=== PATIENT | female | born 1990 ===

== ENCOUNTER 2017-02-18 21:40 | Observation (INO) | payer BC ==
[2017-02-18 21:52] VITALS: BMI 17.6
[2017-02-18] MEDS ORDERED: Sodium Chloride 0.9% 1,000 ML IV STA (21:58)
[2017-02-18 22:24] LABS: ADD MANUAL DIFF? NO
[2017-02-18] MEDS ORDERED: Alum-Mag Hydrox-Simethicone Susp (30 mL) PO STA (22:24)
[2017-02-18] MEDS ORDERED: Atrop/Hyosc/Scopal/PB Elixir (120 ml) PO STA (22:24)
[2017-02-18 22:29] LABS: BASO # 0.02 K/mm3 (0.0-2.0); BASO % 0.1 % (0.0-3.0); EOS # 0.2 (0.0-0.7); EOS % 1.4 % (1.5-5.0); GRAN # 11.26 (1.4-6.5); GRAN % 80.1 % (50.0-68.0); HEMATOCRIT 32.6 % (36.0-48.0); LYMPH # 2.1 (1.2-3.4); LYMPH % 14.6 % (22.0-35.0); MEAN CELL VOLUME 73.8 fL (80.0-105.0); MEAN CORPUSCULAR HGB CONC 32.5 g/dl (31.0-37.0); MEAN PLATELET VOLUME 9.2 fl (7.0-11.0); MONO # 0.5 (0.1-0.6); MONO % 3.8 % (1.0-6.0); PLATELET COUNT 268 10^3/uL (120.0-450.0); RED CELL DISTRIBUTION WIDTH 15.8 % (11.5-14.5); URINE BILIRUBIN NEGATIVE (NEGATIVE); URINE BLOOD NEGATIVE (NEGATIVE); URINE GLUCOSE (UA) NEGATIVE (NEGATIVE); URINE KETONE NEGATIVE (NEGATIVE); URINE LEUKOCYTE ESTERASE NEGATIVE Leu/uL (NEGATIVE); URINE PROTEIN NEGATIVE mg/dL (<30 mg/dL); URINE UROBILINOGEN 0.2 E.U./dL (<1 E.U./dL); WHITE BLOOD COUNT 14.1 10^3/ul (4.5-11.0)
[2017-02-18 22:33] LABS: URINE COLOR YELLOW (YELLOW)
[2017-02-18 22:34] LABS: URINE APPEARANCE CLEAR (CLEAR)
[2017-02-18] MEDS ORDERED: Morphine 2 mg/ml ISec IVP STA (22:35)
[2017-02-18 22:38] LABS: ALB/GLOB RATIO 1.2 (1.1-1.8); ALKALINE PHOSPHATASE 77 U/L (38-133); ALT/SGPT 16 U/L (7-56); AMYLASE 111 U/L (35-125); AST/SGOT 20 U/L (15-39); BILIRUBIN,TOTAL 0.5 mg/dL (0.2-1.3); BLOOD UREA NITROGEN 7 mg/dL (7-21); CALCIUM 8.8 mg/dL (8.4-10.5); CARBON DIOXIDE 28 mmol/L (21-33); CHLORIDE 103 mmol/L (98-107); GFR AFRICAN-AMERICAN > 60; GLUCOSE,RANDOM 83 mg/dL (70-110); LIPASE 94 U/L (23-300); POTASSIUM 3.9 mmol/L (3.6-5.0); SODIUM 140 mmol/L (132-148); TOTAL PROTEIN 7.4 g/dL (5.8-8.3)
--- NOTE | 2017-02-19 00:02 | ED PDOC ---
Arrival/HPI - General Chief Complaint: Abdominal Pain Time Seen by Provider: 02/18/17 21:58 Historian: Patient - History of Present Illness Narrative History of Present Illness (Text): 02/18/17 23:58 27-year-old female presents today with diffuse abdominal pain and epigastric pain that started this afternoon and has progressively been worsening. Patient complaining of nausea andvomiting with one episode of diarrhea. Denies fevers or chills. Denies urinary symptoms. Denies back pain. Patient rates the pain as 10 out of 10. Patient states this is not a pain that she has had before. No medications have been taken at home. pt states she is supposed to be taking medications for ulcers. No other complaints 02/19/17 00:36 Past Medical History - Provider Review Nursing Documentation Reviewed: Yes - Travel History Have you recently traveled outside [place] w/in the past 3 mons?: No - Infectious Disease Hx of Infectious Diseases: None - Tetanus Immunization Tetanus Immunization: Unknown - Cardiac Hx Cardiac Disorders: No - Pulmonary Hx Respiratory Disorders: No - Neurological Hx Neurological Disorder: No - HEENT Hx HEENT Disorder: No - Renal Hx Renal Disorder: No - Endocrine/Metabolic Hx Endocrine Disorders: Yes Other/Comment: pain to tip of fingers and numbness to arms on and off since dx with sickle cell trait - Hematological/Oncological Hx Blood Disorders: Yes Hx Sickle Cell Trait: Yes - Integumentary Hx Dermatological Disorder: No - Musculoskeletal/Rheumatological Hx Falls: No - Gastrointestinal Hx Gastrointestinal Disorders: Yes (diarrhea, questionable colitis 3 yr ago) Hx Gastritis: Yes - Genitourinary/Gynecological Hx Genitourinary Disorders: Yes Other/Comment: lmp 1 yr ago took depo provera shot for control, has had some spotting - Psychiatric Hx Anxiety: Yes Hx Depression: Yes Hx Substance Use: No - Surgical History Hx Section: Yes (x1) - Anesthesia Hx Anesthesia: Yes Hx Anesthesia Reactions: No Hx Malignant Hyperthermia: No Family/Social History - Physician Review Nursing Documentation Reviewed: Yes Family/Social History: Unknown Family HX Smoking Status: Never Smoked Hx Alcohol Use: No Hx Substance Use: No Allergies/Home Meds Allergies/Adverse Reactions: Allergies No Known Allergies Allergy (Verified 12/05/16 22:24) Review of Systems - Review of Systems Constitutional: absent: Fatigue, Fevers Respiratory: absent: SOB, Cough Cardiovascular: absent: Chest Pain, Palpitations Gastrointestinal: Abdominal Pain, Nausea. absent: Constipation, Diarrhea, Vomiting Genitourinary Female: absent: Dysuria, Frequency, Hematuria Musculoskeletal: absent: Arthralgias, Back Pain, Neck Pain Skin: absent: Rash, Pruritis Neurological: absent: Headache Psychiatric: absent: Anxiety, Depression Physical Exam Vital Signs Reviewed: Yes Vital Signs Temp Pulse Resp BP Pulse Ox 02/18/17 21:54 97.8 F 75 18 104/71 100 Temperature: Afebrile Blood Pressure: Normal Pulse: Regular Respiratory Rate: Normal Appearance: Positive for: Well-Appearing, Non-Toxic, Uncomfortable Pain Distress: Mild Mental Status: Positive for: Alert and Oriented X 3 - Systems Exam Head: Present: Atraumatic Mouth: Present: Moist Mucous Membranes Neck: Present: Normal Range of Motion Respiratory/Chest: Present: Clear to Auscultation, Good Air Exchange. No: Respiratory Distress, Accessory Muscle Use Cardiovascular: Present: Regular Rate and Rhythm, Normal S1, S2. No: Murmurs Abdomen: Present: Tenderness (epigastric tenderness, diffuse tenderness greatest epigastric), Normal Bowel Sounds, Guarding (voluntary guarding). No: Distention, McBurney's Point Tender Back: Present: Normal Inspection. No: CVA Tenderness, Midline Tenderness, Paraspinal Tenderness Upper Extremity: Present: Normal ROM Lower Extremity: Present: Normal ROM Neurological: Present: GCS=15 Skin: Present: Warm, Dry, Normal Color. No: Rashes Psychiatric: Present: Alert, Oriented x 3 Medical Decision Making ED Course and Treatment: 02/19/17 00:00 Patient is nontoxic well appearing with stable vital signs presenting with severe abdominal pain pt seen and evaluated by dr. Guerrero CBC wbc;14.1 CMP: wnl Lipase Wnl Urinalysis wnl Ultrasound:COMPARISON: CT - ABD PELVIS PO IV CONTRAST 01/11/2017 1:57:47 AM FINDINGS: Liver: Normal echogenicity. No mass. No intrahepatic bile duct dilatation. Gallbladder: No gallstones. No wall thickening. No pericholecystic fluid. No sonographic Pleitez's sign. Common bile duct: No dilatation. No stones. Pancreas: Unremarkable as visualized. Kidneys: Normal echogenicity. No hydronephrosis. Spleen: No splenomegaly. Aorta: Unremarkable. No aneurysm. Inferior vena cava: Unremarkable. Free fluid: No significant free fluid. IMPRESSION: 1. No acute findings. 2. Non-acute findings are described above. Pt had CT on 01/11; reviewed; pt given GI cocktail, and protonix iv and morphine 2 IV. Patient reassessment: Pt still with diffuse abdominal tenderness greatest in the epigastric region, slight improvement in pain, but still c/o burning and achy pain with wbc, 14.1 Discussed all results with patient in depth case discussed with dr. ozuna; will admit observational status for intractable abdominal pain. will get surgical consult and GI consult. case discussed with surgical services asst dr pandey all aspects of this case were discussed the attending of record. Impression: Abdominal pain, intractable admit observational status to med/surg. - Lab Interpretations Lab Results: 02/18/17 22:23 02/18/17 22:23 Lab Results 02/18/17 22:23: WBC 14.1 H D, RBC 4.42, Hgb 10.6 L, Hct 32.6 L, MCV 73.8 L, MCH 24.0 L, MCHC 32.5, RDW 15.8 H, Plt Count 268, MPV 9.2, Gran % 80.1 H, Lymph % ( Auto) 14.6 L, [place] % (Auto) 3.8, Eos % (Auto) 1.4 L, Baso % (Auto) 0.1, Gran # 11.26 H, Lymph # 2.1, [place] # 0.5, Eos # 0.2, Baso # 0.02, Sodium 140, Potassium 3.9, Chloride 103, Carbon Dioxide 28, Anion Gap 13, BUN 7, Creatinine 0.7, Est GFR ( Amer) > 60, Est GFR (Non-Af Amer) > 60, Random Glucose 83, Calcium 8.8, Total Bilirubin 0.5, AST 20, ALT 16, Alkaline Phosphatase 77, Total Protein 7.4, Albumin 4.0, Globulin 3.4, Albumin/Globulin Ratio 1.2, Amylase 111 , Lipase 94, Urine Color Yellow, Urine Appearance Clear, Urine pH 8.0, Ur Specific [place] 1.015, Urine Protein Negative, Urine Glucose (UA) Negative, Urine Ketones Negative, Urine Blood Negative, Urine Nitrate Negative, Urine Bilirubin Negative, Urine Urobilinogen 0.2, Ur Leukocyte Esterase Negative, Urine HCG, Qual Negative - RAD Interpretation Radiology Orders: 03/30/17 22:23 ABDOMEN COMPLETE [US] Stat - Medication Orders Current Medication Orders: Discontinued Medications Al Hydrox/Mg Hydrox/Simethicone (Maalox Plus 30 Ml) 30 ml PO STAT STA Stop: 02/18/17 22:25 Last Admin: 02/18/17 23:00 Dose: 30 ML Belladonna/Phenobarbital ( Elixir) 10 ml PO STAT STA Stop: 02/18/17 22:25 Last Admin: 02/18/17 22:59 Dose: 10 ML Sodium Chloride (Sodium Chloride 0.9%) 1,000 mls @ 999 mls/hr IV .Q1H1M STA Stop: 02/18/17 22:58 Last Admin: 02/18/17 22:24 Dose: 999 MLS/HR eMAR Start Stop Document 02/18/17 22:24 [facility] (Rec: 02/18/17 22:24 [id number]) Intravenous Solution Start Date 02/18/17 Start Time 22:24 End Date 02/18/17 End time 23:24 Total Infusion Time 60 Lidocaine HCl (Lidocaine 2% Viscous) 10 ml PO STAT STA Stop: 02/18/17 22:25 Last Admin: 02/18/17 23:00 Dose: 10 ML Morphine Sulfate (Morphine) 2 mg IVP STAT STA Stop: 02/18/17 22:36 Last Admin: 02/18/17 23:03 Dose: 2 MG MAR Pain Assessment Document 02/18/17 23:03 [facility] (Rec: 02/18/17 23:05 [id number]) Pain Reassessment Is this a pain reassessment? No Sleep Is patient sleeping during reassessment? No Presence of Pain Presence of Pain Yes Location Pain Location Body Site Abdomen Description Description Intermittent Intensity of Pain at present 8 Acceptable Level of Pain 0 Radiation Location abdomen Variations/Patterns intermittent Alleviating Factors/Management Medication Techniques Position Change IVP Administration Document 02/18/17 23:03 [facility] (Rec: 02/18/17 23:05 [id number]) Charges for Administration # of IVP Administrations 1 Pantoprazole Sodium (Protonix Inj) 40 mg IVP STAT STA Stop: 02/18/17 22:01 Last Admin: 02/18/17 22:24 Dose: 40 MG IVP Administration Document 02/18/17 22:24 [facility] (Rec: 02/18/17 22:24 [id number]) Charges for Administration # of IVP Administrations 1 Disposition/Present on Arrival - Present on Arrival Any Indicators Present on Arrival: No History of DVT/PE: No History of Uncontrolled Diabetes: No Urinary Catheter: No History of Decub. Ulcer: No History Surgical Site Infection Following: None - Disposition Have Diagnosis and Disposition been Completed?: Yes Diagnosis: Intractable abdominal pain Disposition: HOSPITALIZED Disposition Time: 00:52 Patient Plan: Observation Patient Problems: Current Active Problems Problem Status Diagnosed Intractable abdominal pain Acute Condition: FAIR
[2017-02-19] MEDS ORDERED: Sodium Chloride 0.9% 1,000 ML IV STA (00:58)
[2017-02-19] MEDS ORDERED: Morphine 2 mg/ml ISec IVP PRN (01:38)
--- NOTE | 2017-02-19 01:52 | CP.PCM.CON ---
History of Present Illness - History of Present Illness History of Present Illness: General Surgery Consult note for Dr. Lopez Consult reason: epigastric pain and vomiting 27F with PMH of sickle cell trait, PUD, anxiety and depression with PSH of c- section 4 years ago with epigastric abdominal pain several hours in duration. Patient states that at first she thought her pain was a symptom of a cold, as her children have been sick and she has had an intermittent non-productive cough and sore throat. When her symptoms worsened throughout the day she came to the ER. Pain is described as a burning sensation not improved with peptobismol and is accompanied by nausea and 3 episodes of vomiting and 1 episode of diarrhea. Patient states that emesis was at first food and then had a green tint, but denies hematemisis. Diarrhea is normal color, no melena or hematochezia. Pain does not radiate and is not associated with mid back pain or a tearing sensation. Patient reports increased urinary frequency, dysuria, but denies hematuria, fevers, chills, chest pain, SOB, numbness, tingling, edema, or any other symptoms. Patient has had multiple episodes of this pain, EGD 08/07 revealed gastric and duodenal ulcers, and is prescribed pepcid which she only takes sporadically. Patient does not associate pain with eating or with the intake of spicy foods but states it is worse with soda consumption. Patient has a history of chronic lower back pain. LMP 02/08/16 but lasted only 2 days. WBC: 14.1 H/H:10.6/32.6 Abdominal US: no acute pathology, no signs of cholelithiasis, cholecystitis, or choledocholithiasis Patient was given maalox, protonix, and morphine in the ED and she states that her pain was improved but still persists. Denies any current nausea or vomiting or any other symptoms. PMH: sickle cell trait, PUD, anxiety, depression PSH: , EGD ALL: NKDA Review of Systems - Review of Systems All systems: reviewed and no additional remarkable complaints except - Constitutional Constitutional: As Per HPI - EENT Nose/Mouth/Throat: As Per HPI - Cardiovascular Cardiovascular: As Per HPI - Respiratory Respiratory: As Per HPI - Gastrointestinal Gastrointestinal: As Per HPI - Genitourinary Genitourinary: As Per HPI - Reproductive: Female Reproductive:Female: Light Menses. absent: Amenorrhea/ Control - Menstruation Menstruation: Light Menses. absent: Amenorrhea/ Control - Musculoskeletal Musculoskeletal: Back Pain. absent: Numbness, Tingling - Neurological Neurological: As Per HPI Past Patient History - Infectious Disease Hx of Infectious Diseases: None - Tetanus Immunizations Tetanus Immunization: Unknown - Past Social History Smoking Status: Never Smoked Home Situation {Lives}: With Family - CARDIAC Hx Cardiac Disorders: No - PULMONARY Hx Respiratory Disorders: No - NEUROLOGICAL Hx Neurological Disorder: No - HEENT Hx HEENT Problems: No - RENAL Hx Chronic Kidney Disease: No - ENDOCRINE/METABOLIC Hx Endocrine Disorders: Yes Other/Comment: pain to tip of fingers and numbness to arms on and off since dx with sickle cell trait - HEMATOLOGICAL/ONCOLOGICAL Hx Blood Disorders: Yes - INTEGUMENTARY Hx Dermatological Problems: No - MUSCULOSKELETAL/RHEUMATOLOGICAL Hx Falls: No - GASTROINTESTINAL Hx Gastrointestinal Disorders: Yes (diarrhea, questionable colitis 3 yr ago) Hx Gastritis: Yes - GENITOURINARY/GYNECOLOGICAL Hx Genitourinary Disorders: Yes Other/Comment: lmp 1 yr ago took depo provera shot for control, has had some spotting - PSYCHIATRIC Hx Anxiety: Yes Hx Depression: Yes Hx Substance Use: No - SURGICAL HISTORY Hx Section: Yes (x1) - ANESTHESIA Hx Anesthesia: Yes Hx Anesthesia Reactions: No Hx Malignant Hyperthermia: No Meds Allergies/Adverse Reactions: Allergies Allergy/AdvReac Type Severity Reaction Status Date / Time No Known Allergies Allergy Verified 12/05/16 22:24 - Medications Medications: Current Medications Sodium Chloride (Sodium Chloride 0.9%) 1,000 mls @ 100 mls/hr IV .Q10H STA Stop: 02/19/17 10:57 Morphine Sulfate (Morphine) 2 mg IVP Q4H PRN PRN Reason: Pain, moderate (4-7) Ondansetron HCl (Zofran Tab) 4 mg PO Q8H PRN PRN Reason: Nausea/Vomiting Pantoprazole Sodium (Protonix Inj) 40 mg IVP DAILY AJIT Physical Exam - Constitutional Appears: Non-toxic - Head Exam Head Exam: ATRAUMATIC, NORMOCEPHALIC - Eye Exam Eye Exam: Normal appearance. absent: Conjunctival injection, Scleral icterus - ENT Exam ENT Exam: Mucous Membranes Moist - Respiratory Exam Respiratory Exam: Clear to Auscultation Bilateral, NORMAL BREATHING PATTERN. absent: Accessory Muscle Use, Respiratory Distress - Cardiovascular Exam Cardiovascular Exam: RRR, +S1, +S2 - GI/Abdominal Exam GI & Abdominal Exam: Soft, Tenderness (marked tenderness to moderate palpation in the epigastrium, RUQ, and LUQ). absent: Distended, Rebound - Extremities Exam Extremities exam: Positive for: pedal pulses present. Negative for: calf tenderness, pedal edema, tenderness - Back Exam Back exam: NORMAL INSPECTION. absent: CVA tenderness (L), CVA tenderness (R) - Neurological Exam Neurological exam: Alert, Oriented x3 - Psychiatric Exam Psychiatric exam: Anxious, Normal Affect - Skin Skin Exam: Dry, Intact, Normal Color, Warm Results - Vital Signs Recent Vital Signs: Last Vital Signs Temp 97.8 F 02/18/17 21:54 Pulse 75 02/18/17 21:54 Resp 18 02/18/17 21:54 BP 104/71 02/18/17 21:54 Pulse Ox 100 02/18/17 21:54 - Labs Result Diagrams: 02/18/17 22:23 02/18/17 22:23 Labs: Laboratory Results - last 24 hr 02/18/17 22:23 WBC 14.1 H D RBC 4.42 Hgb 10.6 L Hct 32.6 L MCV 73.8 L MCH 24.0 L MCHC 32.5 RDW 15.8 H Plt Count 268 MPV 9.2 Gran % 80.1 H Lymph % (Auto) 14.6 L [place] % (Auto) 3.8 Eos % (Auto) 1.4 L Baso % (Auto) 0.1 Gran # 11.26 H Lymph # 2.1 [place] # 0.5 Eos # 0.2 Baso # 0.02 Sodium 140 Potassium 3.9 Chloride 103 Carbon Dioxide 28 Anion Gap 13 BUN 7 Creatinine 0.7 Est GFR ( Amer) > 60 Est GFR (Non-Af Amer) > 60 Random Glucose 83 Calcium 8.8 Total Bilirubin 0.5 AST 20 ALT 16 Alkaline Phosphatase 77 Total Protein 7.4 Albumin 4.0 Globulin 3.4 Albumin/Globulin Ratio 1.2 Amylase 111 Lipase 94 Urine Color Yellow Urine Appearance Clear Urine pH 8.0 Ur Specific [place] 1.015 Urine Protein Negative Urine Glucose (UA) Negative Urine Ketones Negative Urine Blood Negative Urine Nitrate Negative Urine Bilirubin Negative Urine Urobilinogen 0.2 Ur Leukocyte Esterase Negative Urine HCG, Qual Negative - Imaging and Cardiology US - abdomen Status: Image reviewed by me, Report reviewed by me Assessment & Plan - Assessment and Plan (Free Text) Assessment: 27F with PMH of PUD, sickle cell train, and PSH of with epigastric abdominal pain, nausea, and vomiting WBC: 14.1, H/H: 10.6/32.6, LFT's wnl US: no acute disease, no signs of gall bladder disease CT abd and pelvis from 01/10/17: no acute disease of the stomach or bowel, R ovarian cyst UA: neg for infection Plan: -no indication for emergent surgical intervention at this time -protonix, zofran PRN, pain management -leukocytosis may be from a URI, but will continue to trend -management per primary team -f/u GI recs -NPO -further recs per Dr. John Russell, PGY1
[2017-02-19 06:32] LABS: ADD MANUAL DIFF? NO
[2017-02-19] MEDS ORDERED: Barium Sulfate Susp 2.1% w/v, 2.0% w/w 450 mL Bottle PO ONE (06:42)
[2017-02-19 06:43] LABS: BASO # 0.03 K/mm3 (0.0-2.0); BASO % 0.3 % (0.0-3.0); EOS # 0.2 (0.0-0.7); EOS % 1.3 % (1.5-5.0); GRAN # 7.69 (1.4-6.5); GRAN % 66.6 % (50.0-68.0); HEMATOCRIT 30.8 % (36.0-48.0); LYMPH % 26.1 % (22.0-35.0); MEAN CELL VOLUME 73.5 fL (80.0-105.0); MEAN CORPUSCULAR HEMOGLOBIN 24.1 pg (25.0-35.0); MEAN CORPUSCULAR HGB CONC 32.8 g/dl (31.0-37.0); MEAN PLATELET VOLUME 9.1 fl (7.0-11.0); MONO # 0.7 (0.1-0.6); MONO % 5.7 % (1.0-6.0); PLATELET COUNT 252 10^3/uL (120.0-450.0); RED CELL DISTRIBUTION WIDTH 15.6 % (11.5-14.5); WHITE BLOOD COUNT 11.6 10^3/ul (4.5-11.0)
[2017-02-19 06:51] LABS: BLOOD UREA NITROGEN 7 mg/dL (7-21); CARBON DIOXIDE 27 mmol/L (21-33); CHLORIDE 107 mmol/L (98-107); GFR AFRICAN-AMERICAN > 60; GLUCOSE,RANDOM 71 mg/dL (70-110); POTASSIUM 3.9 mmol/L (3.6-5.0); SODIUM 141 mmol/L (132-148)
[2017-02-19] MEDS ORDERED: Sodium Chloride 0.9% 1,000 ML IV SCH (08:45)
--- NOTE | 2017-02-19 10:09 | HP ---
CHIEF COMPLAINT AND HISTORY OF PRESENT ILLNESS: This is a 27-year-old female who is coming in to the hospital complaining of abdominal pain. She says that her children had a gastroenteritis and she fe lt that she may have the same gastroenteritis. She was said that the pain was 10/10, and she was not able to tolerate the pain so she came for further evaluation. She was having nausea. She said she had 1 episode of diarrhea. She denies any fevers or chills; no dysuria or frequency; no nocturia; no weakness in the arms or the legs. She has a past medical history of anxiety and sickle cell trait w ith peptic ulcer disease. She said that she is feeling better. She had 3 episodes of vomiting, nonb loody. REVIEW OF SYSTEMS: All of the review of symptoms are within normal limits except as mentioned. She had an EGD done in 07/2016 that showed peptic ulcer disease. Her last period was about 2 weeks ago. PAST MEDICAL HISTORY: Peptic ulcer disease, sickle cell trait, dermoid cyst rupture. SOCIAL HISTORY: She denies smoking and drinking. FAMILY HISTORY: There is ovarian cancer in her sister. Coronary artery disease and diabetes in the family. MEDICATIONS: None. PHYSICAL EXAMINATION: VITAL SIGNS: She has a temperature of 97.9, pulse of 64, blood pressure 120/57, respirations 20, O2 saturation 98%. GENERAL: Patient lying in bed, flat, and in no apparent distress. HEAD AND NECK EXAM: Atraumatic, normocephalic. Conjunctivae are pink. Throat clear and mouth with moist mucosa. Oropharynx benign. EYES: Extraocular movements are intact. PERRLA. NECK: Supple. No JVD, thyromegaly, or adenopathy. No bruits. HEART: S1 and S2 regular rate and rhythm. No murmurs, rubs, or gallops. LUNGS: Clear to auscultation bilaterally. No wheezing rales or rhonchi appreciated. No retraction s on exam. ABDOMEN: Bowel sounds are positive. There is epigastric tenderness with no rebound, no guarding, n o hepatosplenomegaly. EXTREMITIES: No cyanosis, clubbing, or edema. NEURO: No facial asymmetry, tongue is midline, no uvula deviation. Power is 5/5 in upper extremity and 5/5 in lower extremity. Sensation is normal in upper extremity and lower extremity. PSYCH: Awake, alert, oriented x3. No anxiety or depression symptoms. Good insight. Normal affec t. : No CVA tenderness VASCULAR: 2+ pulses in carotid and pedal pulses. SKIN: No erythema or abnormal nodules noted. SPINE: Normal curvature. LYMPHADENOPATHY: No anterior cervical or posterior cervical adenopathy. No inguinal adenopathy. LABORATORY DATA: White count of 14.1, hemoglobin 10.6, platelet count is 268. Repeat white count is 11.6. Chemistry shows a sodium 140, potassium 3.9, albumin is 4.0. Urine shows blood that is negat [place], nitrites are negative, bilirubin is negative. Ultrasound of the abdomen is pending. ASSESSMENT: 1. Abdominal pain 2. Sickle cell trait. 3. Peptic ulcer disease. PLAN: The patient is currently comfortable. She is being seen by GI and surgery. The patient is on morphine for pain. She is receiving Protonix IV. She was given IV fluids. She is currently n.p.o. and is going for a CAT scan. Will await further input from the consultants. Her pain is currently controlled. Baljit Vaughn MD cc: [id number] TT: 02/19/2017 10:08:58 [place]
--- NOTE | 2017-02-19 11:03 | CT ---
PROCEDURE: CT Abdomen and Pelvis without intravenous contrast HISTORY: abdominal pain COMPARISON: None. TECHNIQUE: Without contrast. Contrast Dose: Radiation dose: Total exam DLP = 188 mGy-cm. FINDINGS: LOWER THORAX: Unremarkable. LIVER: Unremarkable. No gross lesion or ductal dilatation. GALLBLADDER AND BILE DUCTS: Unremarkable. PANCREAS: Unremarkable. No gross lesion or ductal dilatation. SPLEEN: Unremarkable. ADRENALS: Unremarkable. No mass. KIDNEYS AND URETERS: Unremarkable. No hydronephrosis. No solid mass. VASCULATURE: Unremarkable. No aortic aneurysm. BOWEL: Unremarkable. No obstruction. No gross mural thickening. APPENDIX: Unremarkable. Normal appendix. PERITONEUM: Unremarkable. No free fluid. No free air. LYMPH NODES: Unremarkable. No enlarged lymph nodes. BLADDER: Unremarkable. REPRODUCTIVE: A dermoid mass is seen in the midline of the pelvis measuring 4.2 cm in diameter. This has fatty content as well as calcifications. This is unchanged. There is a small amount of fluid in the cul-de-sac. BONES: No acute fracture. OTHER FINDINGS: None. IMPRESSION: No acute intra-abdominal findings. Dermoid mass in the midline of the pelvis
--- NOTE | 2017-02-19 14:06 | US ---
HISTORY: Upper abdominal pain COMPARISON: None. TECHNIQUE: Grayscale imaging was performed. FINDINGS: LIVER: Measures 15.1 cm. Normal echogenicity of the liver parenchyma. No mass. No intrahepatic bile duct dilatation. GALLBLADDER: Unremarkable. No gallstones. COMMON BILE DUCT: Measures 3.0 mm. No stones. No dilatation. PANCREAS: Unremarkable as visualized. No mass. No ductal dilatation. RIGHT KIDNEY: Measures 11.3cm. Normal echogenicity. No calculus, mass, or hydronephrosis. LEFT KIDNEY: Measures 10.9cm. Normal echogenicity. No calculus, mass, or hydronephrosis. SPLEEN: Normal in size and contour. No mass. AORTA: No aneurysmal dilatation. IVC: Unremarkable. OTHER FINDINGS: None. IMPRESSION: Normal examination.
--- NOTE | 2017-02-19 14:59 | CON ---
DATE: 02/19/2017 The patient was seen and examined at the bedside earlier this morning. REQUEST FOR CONSULT: Abdominal pain. HISTORY OF PRESENT ILLNESS: This is a 27-year-old female with past medical history of peptic ulcer d marilyn, sickle cell trait, came to the Emergency Room complaining of abdominal pain. Her symptoms st arted yesterday. She states that her children were sick and she started having nausea and vomiting a nd thought that she may have had the illness from her children. She states that she had 1 episode of diarrhea. No melena or bright red blood. Her vomitus was green in color. Did not notice any coffe e-ground vomitus or bright red blood. No complaints of any fever or chills. She reports that her pa in was 10/10. She states it is a little bit better this morning. She is going for a CT scan of abdo men and pelvis and she was able to tolerate a bottle, but she threw up earlier. The patient was last seen by our service back in 12/2016. She had also right lower quadrant pain, found to have a right o varian cyst. She states that she did follow up with her HEALTH CARE COORDINATOR and no acute findings were reported. Miguel cobian does have a history of peptic ulcer disease. She last had endoscopy in 07/2016 and was found to hav e superficial gastric ulcers in the gastric antrum as well as a few duodenal ulcers, but no stigmata of bleeding was found. The patient was recommended to take Prilosec 40 p.o. daily. The patient occa sionally takes Pepcid, but not on a regular basis and has been taking Excedrin at least every other d ay for headaches. Also, the pain is in the epigastric area. PAST MEDICAL HISTORY: Sickle cell trait, peptic ulcer disease, dermoid cyst rupture. FAMILY HISTORY: Sister with ovarian cancer and also diabetes and CAD in the family. PAST SURGICAL HISTORY: She had a x 1. SOCIAL HISTORY: Denies tobacco use, ETOH or substance abuse. ALLERGIES: No known drug allergies. MEDICATIONS: Reviewed as per JAN. REVIEW OF SYSTEMS: Systems were reviewed with positive findings, see HPI. VITAL SIGNS: Temperature is 97.9, blood pressure is 120/57, pulse is 64, respirations 20, 98 on room air. LABORATORY DATA: WBC 11.6, H and H is 10.1 and 30.8, platelets silverio 252. Sodium is 141, K is 3.9, B UN is 7 and creatinine is 0.7. Urine leukocyte esterase is negative. She went for an abdominal ultr asound on admission and that reported no acute findings. Common bile duct was negative for stones or dilatation. Gallbladder did not show any gallstones or any wall thickening, no pericholecystic flui d. Liver was normal. Echogenicity, no intrahepatic bile duct dilatation or mass. CT scan of abdome n and pelvis was done with oral contrast and that reported a dermoid mass seen in the mid pelvis dodie uring 4.2 cm in diameter. This had fatty content as well as calcification. This is unchanged. Ther e is a small amount of fluid in the cul-de-sac. The bowel is unremarkable. No obstruction, no gross mural thickening, no acute intra-abdominal findings. PHYSICAL EXAMINATION: HEENT: Sclerae are anicteric. NECK: Supple. CARDIAC: S1, S2. LUNGS: Sounds are clear. ABDOMEN: With bowel sounds, soft. It does not appear distended, but is positive for tenderness most ly in the epigastric area with diffuse tenderness throughout the mid abdomen. No rebound, guarding, or organomegaly. EXTREMITIES: Positive pedal pulses, no edema. NEUROLOGIC: Awake, alert, and oriented. ASSESSMENT: This is a 27-year-old female with history of sickle cell trait as well as peptic ulcer d isease and dermoid cyst rupture, came to the Emergency Room with complaints of severe abdominal pain, mostly in the epigastric area. The patient does have history of NSAID use rule out any severe gastritis or recurrent ulcer disease. Her CT scan and abdominal ultrasound are negative. PLAN: We will increase her Protonix 40 IV daily to q. 12 hours. Likely, she could start on a clear liquid diet, but the patient needs to avoid taking any Excedrin and may benefit from an elective uppe r endoscopy. If patient is discharged home prior to Wednesday, we recommend that she take Protonix 40 m g b.i.d. for 10 days and then can take the Protonix daily and we can schedule her for an upper endosc opy and she should avoid all NSAIDs. Thank you for this consult and for allowing us to participate in your patient's care. We will make saige cody recommendations based upon the patient's clinical course. The patient was seen and case discu ssed with Dr. Choi. Lyla GUTIERRES cc: [id number] TT: 02/19/2017 14:58:02 Confirmation # [id number] Dictation # [id number] rn
[2017-02-19 17:28] VITALS: BP 111/63; PULSE 75; RESP 18; TEMP 98.3; O2SAT 97
--- NOTE | 2017-02-19 19:14 | CP.PCM.PN ---
Subjective - Date & Time of Evaluation Date of Evaluation: 02/19/17 Time of Evaluation: 18:45 - Subjective Subjective: CC- AMA Hpi- 27 yr old female admitted for intractable abdominal pain , N/V Pt seen and examined at bedside alert, ox3, states I feels much better now and , abdominal pain improved, and tolerating diet , without N/V vss- stable , a febrile Discussed in details regarding the risks of signing out AMA ,vs benefit of staying and get proper treatment . Pt still wants to leave AMA and verbalized understanding the risks of AMA AMA form signed by patient and RN witnessed Patient instructed to returns to ED if symptoms returns or any other concerning symptoms develops Pt also instructed to f/u with Dr. Santana office in 3-5 days Objective - Vital Signs/Intake and Output Vital Signs (last 24 hours): Temp Pulse Resp BP Pulse Ox 98.3 F 75 18 111/63 97 02/19/17 16:00 02/19/17 16:00 02/19/17 16:00 02/19/17 16:00 02/19/17 16:00 Intake and Output: 02/19/17 02/19/17 06:59 18:59 Intake Total 500 0 Output Total 0 Balance 500 0 - Medications Medications: Current Medications Sodium Chloride (Sodium Chloride 0.9%) 1,000 mls @ 50 mls/hr IV .Q20H AJIT Morphine Sulfate (Morphine) 2 mg IVP Q4H PRN PRN Reason: Pain, moderate (4-7) Ondansetron HCl (Zofran Tab) 4 mg PO Q8H PRN PRN Reason: Nausea/Vomiting Pantoprazole Sodium (Protonix Inj) 40 mg IVP Q12H AJIT - Labs Labs: 02/19/17 05:50 02/19/17 05:50
== END 2017-02-19 19:30 | disposition left against medical advice (07) ==
LOC: ED 21:40 → ERH 02-19 00:57 → 5RNO 02-19 02:32
PROVIDERS: ADMIT Internal Medicine Nephrology; ATTEND Internal Medicine Nephrology
DX: R10.13 Epigastric pain (principal); D57.3 Sickle-cell trait; F41.9 Anxiety disorder, unspecified; M54.5 Low back pain; G89.29 Other chronic pain; N83.201 Unspecified ovarian cyst, right side; K25.9 Gastric ulcer, unspecified as acute or chronic, without hemorrhage or perforation; K26.9 Duodenal ulcer, unspecified as acute or chronic, without hemorrhage or perforation; Z80.41 Family history of malignant neoplasm of ovary; Z83.3 Family history of diabetes mellitus; Z82.49 Family history of ischemic heart disease and other diseases of the circulatory system
CPT/HCPCS: 36415; 74176; 76700; 80048; 80053; 81003; 82150; 83690; 84703; 85025; 96361; 96374; 96375; 99282; C9113; G0378; J2270; J7040

== ENCOUNTER 2017-03-24 14:41 | Emergency (ER) | payer BC ==
[2017-03-24 14:41] VITALS: BMI 17.6
[2017-03-24 16:45] VITALS: RESP 18; TEMP 98.7
[2017-03-24] MEDS ORDERED: Sodium Chloride 0.9% 1,000 ML IV STA (16:56)
[2017-03-24 18:09] LABS: ADD MANUAL DIFF? NO
[2017-03-24 18:14] LABS: BASO # 0.03 K/mm3 (0.0-2.0); BASO % 0.3 % (0.0-3.0); EOS # 0.4 (0.0-0.7); EOS % 3.7 % (1.5-5.0); GRAN # 6.38 (1.4-6.5); GRAN % 61.3 % (50.0-68.0); HEMATOCRIT 33.6 % (36.0-48.0); LYMPH # 3.1 (1.2-3.4); LYMPH % 29.8 % (22.0-35.0); MEAN CELL VOLUME 72.1 fL (80.0-105.0); MEAN CORPUSCULAR HEMOGLOBIN 24.2 pg (25.0-35.0); MEAN CORPUSCULAR HGB CONC 33.6 g/dl (31.0-37.0); MEAN PLATELET VOLUME 8.9 fl (7.0-11.0); MONO # 0.5 (0.1-0.6); MONO % 4.9 % (1.0-6.0); PH,URINE 6.5 (4.7-8.0); PLATELET COUNT 244 10^3/uL (120.0-450.0); RED CELL DISTRIBUTION WIDTH 15.6 % (11.5-14.5); URINE BILIRUBIN NEGATIVE (NEGATIVE); URINE BLOOD TRACE-LYSED (NEGATIVE); URINE GLUCOSE (UA) NEGATIVE (NEGATIVE); URINE KETONE NEGATIVE (NEGATIVE); URINE LEUKOCYTE ESTERASE LARGE Leu/uL (NEGATIVE); URINE PROTEIN NEGATIVE mg/dL (<30 mg/dL); URINE UROBILINOGEN 0.2 E.U./dL (<1 E.U./dL); WHITE BLOOD COUNT 10.4 10^3/ul (4.5-11.0)
[2017-03-24 18:29] LABS: ALB/GLOB RATIO 1.2 (1.1-1.8); ALKALINE PHOSPHATASE 71 U/L (38-133); ALT/SGPT 24 U/L (7-56); AMYLASE 103 U/L (35-125); AST/SGOT 37 U/L (15-39); BILIRUBIN,TOTAL 0.6 mg/dL (0.2-1.3); BLOOD UREA NITROGEN 11 mg/dL (7-21); CALCIUM 9.1 mg/dL (8.4-10.5); CARBON DIOXIDE 25 mmol/L (21-33); CHLORIDE 105 mmol/L (98-107); GFR AFRICAN-AMERICAN > 60; GLUCOSE,RANDOM 77 mg/dL (70-110); LIPASE 98 U/L (23-300); POTASSIUM 4.3 mmol/L (3.6-5.0); SODIUM 138 mmol/L (132-148); TOTAL PROTEIN 7.6 g/dL (5.8-8.3)
[2017-03-24 18:30] LABS: URINE APPEARANCE SL CLOUDY (CLEAR); URINE COLOR YELLOW (YELLOW)
[2017-03-24 19:05] LABS: URINE BACTERIA FEW (NEG); URINE RBC NEGATIVE /hpf (0-2)
--- NOTE | 2017-03-24 20:21 | ED PDOC ---
Arrival/HPI - General Chief Complaint: Abdominal Pain Time Seen by Provider: 03/24/17 14:43 Historian: Patient - History of Present Illness Narrative History of Present Illness (Text): 03/24/17 14:43 A 27 year old female presents to the emergency department complaining olf left sided abdominal pain for the past 3 days. Patient notes to having mild dysuria but denies any nausea, vomiting, hematuria, vaginal discharge, vaginal bleeding or any other complaints at this time. She states she is sexual active and only has one partner. PMD: Dr. Vaughn Time/Duration: Other (3 days) Symptom Onset: Sudden Symptom Course: Unchanged Quality: Other Activities at Onset: Rest Context: Home Past Medical History - Provider Review Nursing Documentation Reviewed: Yes - Infectious Disease Hx of Infectious Diseases: None - Tetanus Immunization Tetanus Immunization: Unknown - Cardiac Hx Cardiac Disorders: No - Pulmonary Hx Respiratory Disorders: No - Neurological Hx Neurological Disorder: No - HEENT Hx HEENT Disorder: No - Renal Hx Renal Disorder: No - Endocrine/Metabolic Hx Endocrine Disorders: No - Hematological/Oncological Hx Blood Disorders: Yes Hx Sickle Cell Trait: Yes - Integumentary Hx Dermatological Disorder: No - Musculoskeletal/Rheumatological Hx Musculoskeletal Disorders: No Hx Falls: No - Gastrointestinal Hx Gastrointestinal Disorders: Yes Other/Comment: ABD PAIN, ULCER - Genitourinary/Gynecological Hx Genitourinary Disorders: Yes Other/Comment: VAGINAL BLEEDING - Psychiatric Hx Anxiety: Yes Hx Depression: Yes Hx Substance Use: No - Surgical History Hx Section: Yes - Anesthesia Hx Anesthesia: Yes Hx Anesthesia Reactions: No Hx Malignant Hyperthermia: No Family/Social History - Physician Review Nursing Documentation Reviewed: Yes Family/Social History: Unknown Family HX Smoking Status: Never Smoked Hx Alcohol Use: No Hx Substance Use: No Allergies/Home Meds Allergies/Adverse Reactions: Allergies No Known Allergies Allergy (Verified 03/24/17 14:59) Review of Systems - Physician Review All systems were reviewed & negative as marked: Yes - Review of Systems Gastrointestinal: Abdominal Pain. absent: Nausea, Vomiting Genitourinary Female: Dysuria. absent: Hematuria, Vaginal Bleeding, Vaginal Discharge Physical Exam Vital Signs Reviewed: Yes Vital Signs Temp Pulse Resp BP Pulse Ox 03/24/17 16:45 98.7 F 64 18 110/65 99 03/24/17 15:00 99.1 F 67 16 108/67 98 Temperature: Afebrile Blood Pressure: Normal Pulse: Regular Respiratory Rate: Normal Appearance: Positive for: Well-Appearing, Non-Toxic, Comfortable Pain Distress: None Mental Status: Positive for: Alert and Oriented X 3 - Systems Exam Head: Present: Atraumatic, Normocephalic Pupils: Present: PERRL Extroacular Muscles: Present: EOMI Conjunctiva: Present: Normal Mouth: Present: Moist Mucous Membranes Neck: Present: Normal Range of Motion Respiratory/Chest: Present: Clear to Auscultation, Good Air Exchange. No: Respiratory Distress, Accessory Muscle Use Cardiovascular: Present: Regular Rate and Rhythm, Normal S1, S2. No: Murmurs Abdomen: Present: Normal Bowel Sounds. No: Tenderness, Distention, Peritoneal Signs Back: Present: Normal Inspection Upper Extremity: Present: Normal Inspection. No: Cyanosis, Edema Lower Extremity: Present: Normal Inspection. No: Edema Neurological: Present: GCS=15, CN II-XII Intact, Speech Normal Skin: Present: Warm, Dry, Normal Color. No: Rashes Psychiatric: Present: Alert, Oriented x 3, Normal Insight, Normal Concentration Medical Decision Making ED Course and Treatment: 03/24/17 14:43 Impression: A 27 year old female with left sided abdominal pain associated with mild dysuria. Differential Diagnosis include but are not limited to: Kidney stone vs. UTI vs. STD Plan: -- Labs -- Urinalysis -- Pepcid, Zofran and IV Fluids -- Reassess and disposition Prior Visits: Notes and results from previous visits were reviewed. The patient last presented to the emergency department on 02/18/17 for evaluation of diffused abdominal pain. Progress Notes: On re-evaluation, the patient feels better and is in no acute distress. I have discussed the results and plan with the patient, who expresses understanding. Patient in agreement with plan to discharged home. Patient is stable for discharge. Patient was instructed to follow up with physician/clinic in 1-2 days or return if symptoms worsen or new concerning symptoms arise. - Lab Interpretations Lab Results: 03/24/17 18:00 03/24/17 18:00 Lab Results 03/24/17 18:00: Sodium 138, Potassium 4.3, Chloride 105, Carbon Dioxide 25, Anion Gap 12, BUN 11, Creatinine 0.7, Est GFR ( Amer) > 60, Est GFR (Non- Af Amer) > 60, Random Glucose 77, Calcium 9.1, Total Bilirubin 0.6, AST 37, ALT 24, Alkaline Phosphatase 71, Total Protein 7.6, Albumin 4.2, Globulin 3.4, Albumin/Globulin Ratio 1.2, Amylase 103, Lipase 98 03/24/17 18:00: Urine Color Yellow, Urine Appearance Sl cloudy, Urine pH 6.5, Ur Specific [place] 1.015, Urine Protein Negative, Urine Glucose (UA) Negative, Urine Ketones Negative, Urine Blood Trace-lysed H, Urine Nitrate Negative, Urine Bilirubin Negative, Urine Urobilinogen 0.2, Ur Leukocyte Esterase Large H , Urine RBC Negative, Urine WBC 10 - 15, Ur Epithelial Cells 6 - 8, Urine Bacteria Few 03/24/17 18:00: WBC 10.4, RBC 4.66, Hgb 11.3 L, Hct 33.6 L, MCV 72.1 L, MCH 24.2 L, MCHC 33.6, RDW 15.6 H, Plt Count 244, MPV 8.9, Gran % 61.3, Lymph % ( Auto) 29.8, [place] % (Auto) 4.9, Eos % (Auto) 3.7, Baso % (Auto) 0.3, Gran # 6.38 , Lymph # 3.1, [place] # 0.5, Eos # 0.4, Baso # 0.03 I have reviewed the lab results: Yes - Medication Orders Current Medication Orders: Discontinued Medications Famotidine (Pepcid) 20 mg IVP STAT STA Stop: 03/24/17 16:57 Last Admin: 03/24/17 18:22 Dose: 20 mg Sodium Chloride (Sodium Chloride 0.9%) 1,000 mls @ 1,000 mls/hr IV .Q1H STA Stop: 03/24/17 17:55 Last Admin: 03/24/17 18:22 Dose: 1,000 mls/hr Ondansetron HCl (Zofran Inj) 4 mg IVP STAT STA Stop: 03/24/17 16:57 Last Admin: 03/24/17 18:23 Dose: 4 mg - Scribe Statement The provider has reviewed the documentation as recorded by the Flash Polanco Provider Scribe Attestation: All medical record entries made by the Miriamibmango were at my direction and personally dictated by me. I have reviewed the chart and agree that the record accurately reflects my personal performance of the history, physical exam, medical decision making, and the department course for this patient. I have also personally directed, reviewed, and agree with the discharge instructions and disposition. Disposition/Present on Arrival - Present on Arrival Any Indicators Present on Arrival: No History of DVT/PE: No History of Uncontrolled Diabetes: No Urinary Catheter: No History of Decub. Ulcer: No History Surgical Site Infection Following: None - Disposition Have Diagnosis and Disposition been Completed?: Yes Diagnosis: UTI (urinary tract infection) Disposition: HOME/ ROUTINE Disposition Time: 16:30 Patient Plan: Discharge Patient Problems: Current Active Problems Problem Status Onset UTI (urinary tract infection) Acute Condition: GOOD Discharge Instructions (ExitCare): Urinary Tract Infection in Women (ED) Additional Instructions: Thank you for letting us take care of you today. Your provider was Dr. Campoverde. You were treated for a urinary tract infection. The emergency medical care you received today was directed at your acute symptoms. If you were prescribed any medication, please fill it and take as directed. It may take several days for your symptoms to resolve. Return to the Emergency Department if your symptoms worsen, do not improve, or if you have any other problems. Please contact your doctor or call one of the physicians/clinics you have been referred to that are listed on the Patient Visit Information form that is included in your discharge packet. Bring any paperwork you were given at discharge with you along with any medications you are taking to your follow up visit. Our treatment cannot replace ongoing medical care by a primary care provider (PCP) outside of the emergency department. Thank you for allowing the [facility] team to be part of your care today. Follow up with your doctor in 2 days as scheduled for re-evaluation. Prescriptions: Nitrofurantoin Macrocrystals [Macrobid] 100 mg PO BID #10 cap Referrals: Baljit Vaughn MD [Primary Care Provider] - Follow up with primary
[2017-03-24 23:24] VITALS: BP 113/70; PULSE 69; O2SAT 100
== END 2017-03-24 20:18 | disposition home or self-care (01) ==
LOC: ED 14:41
DX: N39.0 Urinary tract infection, site not specified (principal)
CPT/HCPCS: 80053; 81001; 82150; 83690; 85025; 87086; 96374; 96375; 99283; J2405; J7040

== ENCOUNTER 2017-04-11 11:27 | Emergency (ER) | payer BC ==
[2017-04-11 11:31] VITALS: BMI 18.4
[2017-04-11 11:52] LABS: URINE BILIRUBIN NEGATIVE (NEGATIVE); URINE BLOOD NEGATIVE (NEGATIVE); URINE GLUCOSE (UA) NEGATIVE (NEGATIVE); URINE KETONE NEGATIVE (NEGATIVE); URINE LEUKOCYTE ESTERASE NEGATIVE Leu/uL (NEGATIVE); URINE PROTEIN NEGATIVE mg/dL (<30 mg/dL); URINE UROBILINOGEN 0.2 E.U./dL (<1 E.U./dL)
[2017-04-11 11:56] LABS: URINE APPEARANCE CLEAR (CLEAR); URINE COLOR YELLOW (YELLOW)
[2017-04-11] MEDS ORDERED: Sodium Chloride 0.9% 1,000 ML IV STA (11:58)
--- NOTE | 2017-04-11 12:14 | ED PDOC ---
Arrival/HPI <Galindo Brown - Last Filed: 04/11/17 12:43> - General Historian: Patient - History of Present Illness Time/Duration: > week Symptom Onset: Sudden Symptom Course: Unchanged Quality: Aching Severity Level: 9 <Juarez Rivas - Last Filed: 04/11/17 13:49> - General Chief Complaint: GI Problem Time Seen by Provider: 04/11/17 11:36 - History of Present Illness Narrative History of Present Illness (Text): 27 F with no significant pmh presents with suprapupic abdominal pain, vaginal discomfort, and dysuria. Pt states that she was just here in the ED on 03/24/17 for UTI and she was treated with nitrofurantoin. She stated that it initially helped for 1 week but her symptoms of dysuria and urgency has started again. She also c/o of vaginal discomfort and discharge. She denies any back pain. Denies any cervantes, dizziness, f/c, sob, cp, n/v/d. (Juarez Rivas) Past Medical History - Provider Review Nursing Documentation Reviewed: Yes - Infectious Disease Hx of Infectious Diseases: None - Tetanus Immunization Tetanus Immunization: Unknown - Cardiac Hx Cardiac Disorders: No - Pulmonary Hx Respiratory Disorders: No - Neurological Hx Neurological Disorder: No - HEENT Hx HEENT Disorder: No - Renal Hx Renal Disorder: No - Endocrine/Metabolic Hx Endocrine Disorders: No - Hematological/Oncological Hx Blood Disorders: Yes Hx Sickle Cell Trait: Yes - Integumentary Hx Dermatological Disorder: No - Musculoskeletal/Rheumatological Hx Musculoskeletal Disorders: No Hx Falls: No - Gastrointestinal Hx Gastrointestinal Disorders: Yes Other/Comment: ABD PAIN, ULCER - Genitourinary/Gynecological Hx Genitourinary Disorders: Yes Other/Comment: VAGINAL BLEEDING - Psychiatric Hx Anxiety: Yes Hx Depression: Yes Hx Substance Use: No - Surgical History Hx Section: Yes - Anesthesia Hx Anesthesia: Yes Hx Anesthesia Reactions: No Hx Malignant Hyperthermia: No <Juarez Rivas - Last Filed: 04/11/17 13:49> Family/Social History - Physician Review Nursing Documentation Reviewed: Yes <Galindo Brown - Last Filed: 04/11/17 12:43> Family/Social History: No Known Family HX Smoking Status: Never Smoked Hx Alcohol Use: No Hx Substance Use: No <Juarez Rivas - Last Filed: 04/11/17 13:49> Allergies/Home Meds <Galindo Brown - Last Filed: 04/11/17 12:43> <RickeygabeJuarez - Last Filed: 04/11/17 13:49> Allergies/Adverse Reactions: Allergies No Known Allergies Allergy (Verified 04/11/17 11:31) Home Medications: Home Meds Medication Instructions Recorded Confirmed No Known Home Med 04/11/17 04/11/17 Review of Systems - Physician Review All systems were reviewed & negative as marked: Yes - Review of Systems Respiratory: absent: SOB, Cough Cardiovascular: absent: Chest Pain, Palpitations Gastrointestinal: Abdominal Pain. absent: Diarrhea, Nausea, Vomiting Genitourinary Female: Dysuria, Frequency, Vaginal Discharge <RickeygabeJuarez - Last Filed: 04/11/17 13:49> Physical Exam Vital Signs Reviewed: Yes <GangarosasGalindo - Last Filed: 04/11/17 12:43> Temperature: Afebrile Blood Pressure: Hypotensive Pulse: Regular Respiratory Rate: Normal Appearance: Positive for: Well-Appearing, Non-Toxic, Comfortable Pain Distress: Mild Mental Status: Positive for: Alert and Oriented X 3 - Systems Exam Head: Present: Atraumatic, Normocephalic Pupils: Present: PERRL Extroacular Muscles: Present: EOMI Conjunctiva: Present: Normal Mouth: Present: Moist Mucous Membranes Neck: Present: Normal Range of Motion Respiratory/Chest: Present: Clear to Auscultation, Good Air Exchange. No: Respiratory Distress, Accessory Muscle Use Cardiovascular: Present: Regular Rate and Rhythm, Normal S1, S2. No: Murmurs Abdomen: Present: Tenderness, Normal Bowel Sounds. No: Distention, Peritoneal Signs, Rebound, Guarding, McBurney's Point Tender, Rovsing's Sign Present Genitourinary/Pelvic Exam: Present: Vaginal Discharge (yellow), Cervical Motion Tendernes, Odor. No: Vaginal Bleeding, Vaginal Lesions Upper Extremity: Present: Normal Inspection. No: Cyanosis, Edema Lower Extremity: Present: Normal Inspection. No: Edema Neurological: Present: GCS=15, CN II-XII Intact, Speech Normal Skin: Present: Warm, Dry, Normal Color. No: Rashes Psychiatric: Present: Alert, Oriented x 3, Normal Insight, Normal Concentration <Juarez Rivas - Last Filed: 04/11/17 13:49> Vital Signs Temp Pulse Resp BP Pulse Ox 04/11/17 13:42 98 F 70 18 100/68 98 04/11/17 11:34 97.8 F 78 17 91/60 L 100 Medical Decision Making <Galindo Brown - Last Filed: 04/11/17 12:43> <Juarez Rivas - Last Filed: 04/11/17 13:49> ED Course and Treatment: 04/11/17 12:39 Seen and examined with the resident. Our history and physical exam reveals a young woman complaining of a yellow vaginal discharge. She has urinary tract symptoms. She had a similar episode one month ago treated with antibiotics, but the symptoms returned. There is chronic lower abdominal pain. No vomiting or diarrhea. No back pain. No fever or chills. She has one sexual partner. Her pelvic exam reveals a foul-smelling yellow discharge with positive cervical motion tenderness. She will be treated with IM Rocephin and by mouth Zithromax for PID. (Galindo Brown) Impression: 27 F with no significant pmh presents with suprapupic abdominal pain and dysuria. Differential Diagnosis included but are not limited to: UTI vs std vs PID Plan: - CBC, CMP, Lipase - Toradol 30mg stat - IVF 1L NS bolus - Urine preg test - GC/chlamydia RNA - Reassess and disposition Progress Notes: 04/11/17 12:34 On pelvic exam some yellowish vaginal discharge and cervical motion tenderness. Rocephin 250mg IM stat and Azithromycin 1gm PO stat ordered. 04/11/17 13:48 Pt states that she is feeling much better. No complaints. Wants to go home. Pt instructed to follow up with her PMD with in next 1-2 days. (Juarez Rivas) - Lab Interpretations Lab Results: 04/11/17 12:10 04/11/17 12:10 Lab Results 04/11/17 12:10: Sodium 143, Potassium 4.2, Chloride 104, Carbon Dioxide 27, Anion Gap 16, BUN 10, Creatinine 0.7, Est GFR ( Amer) > 60, Est GFR (Non- Af Amer) > 60, Random Glucose 77, Calcium 9.3, Total Bilirubin 0.5, AST 25, ALT 26, Alkaline Phosphatase 56, Total Protein 8.0, Albumin 4.7, Globulin 3.3, Albumin/Globulin Ratio 1.4, Lipase 74 04/11/17 12:10: WBC 8.4, RBC 4.79, Hgb 11.3 L, Hct 34.7 L, MCV 72.4 L, MCH 23.6 L, MCHC 32.6, RDW 15.9 H, Plt Count 257, MPV 9.4, Gran % 68.5 H, Lymph % (Auto) 21.5 L, [place] % (Auto) 5.9, Eos % (Auto) 3.9, Baso % (Auto) 0.2, Gran # 5.77, Lymph # 1.8, [place] # 0.5, Eos # 0.3, Baso # 0.02 04/11/17 11:40: Urine Color Yellow, Urine Appearance Clear, Urine pH 6.0, Ur Specific [place] 1.010, Urine Protein Negative, Urine Glucose (UA) Negative, Urine Ketones Negative, Urine Blood Negative, Urine Nitrate Negative, Urine Bilirubin Negative, Urine Urobilinogen 0.2, Ur Leukocyte Esterase Negative, Urine HCG, Qual Negative - Medication Orders Current Medication Orders: Discontinued Medications Azithromycin (Zithromax) 1,000 mg PO STAT STA PRN Reason: Protocol Stop: 04/11/17 12:41 Last Admin: 04/11/17 12:58 Dose: 1,000 mg Ceftriaxone Sodium (Rocephin) 250 mg IM STAT STA PRN Reason: Protocol Stop: 04/11/17 12:40 Last Admin: 04/11/17 12:58 Dose: 250 mg Sodium Chloride (Sodium Chloride 0.9%) 1,000 mls @ 999 mls/hr IV .Q1H1M STA Stop: 04/11/17 12:58 Last Admin: 04/11/17 12:14 Dose: 999 mls/hr Ketorolac Tromethamine (Toradol) 30 mg IVP STAT STA Stop: 04/11/17 12:04 Last Admin: 04/11/17 12:15 Dose: 30 mg Disposition/Present on Arrival <Galindo Brown - Last Filed: 04/11/17 12:43> - Present on Arrival Any Indicators Present on Arrival: No History of DVT/PE: No History of Uncontrolled Diabetes: No Urinary Catheter: No History of Decub. Ulcer: No History Surgical Site Infection Following: None - Disposition Have Diagnosis and Disposition been Completed?: Yes Disposition Time: 12:45 Patient Plan: Discharge <Juarze Rivas - Last Filed: 04/11/17 13:49> - Disposition Diagnosis: PID (pelvic inflammatory disease) Disposition: HOME/ ROUTINE Patient Problems: Current Active Problems Problem Status Onset PID (pelvic inflammatory disease) Acute Condition: IMPROVED Additional Instructions: Suyapa Gutierrez , thank you for letting us take care of you today. Your provider was Dr Brown. You were treated for Pelvic Inflammatory Disease. The emergency medical care you received today was directed at your acute symptoms. If you were prescribed any medication, please fill it and take as directed. It may take several days for your symptoms to resolve. Return to the Emergency Department if your symptoms worsen, do not improve, or if you have any other problems. Please contact your doctor or call one of the physicians/clinics you have been referred to that are listed on the Patient Visit Information form that is included in your discharge packet. Bring any paperwork you were given at discharge with you along with any medications you are taking to your follow up visit. Our treatment cannot replace ongoing medical care by a primary care provider (PCP) outside of the emergency department. Thank you for allowing the [facility] team to be part of your care today. Please follow up with your PMD with in the next 1-2 days. Please return to the ED if your symptoms worsen.
[2017-04-11 12:20] LABS: ADD MANUAL DIFF? NO
[2017-04-11 12:36] LABS: ALB/GLOB RATIO 1.4 (1.1-1.8); ALKALINE PHOSPHATASE 56 U/L (38-133); ALT/SGPT 26 U/L (7-56); AST/SGOT 25 U/L (15-39); BILIRUBIN,TOTAL 0.5 mg/dL (0.2-1.3); BLOOD UREA NITROGEN 10 mg/dL (7-21); CALCIUM 9.3 mg/dL (8.4-10.5); CARBON DIOXIDE 27 mmol/L (21-33); CHLORIDE 104 mmol/L (98-107); GFR AFRICAN-AMERICAN > 60; GLUCOSE,RANDOM 77 mg/dL (70-110); LIPASE 74 U/L (23-300); POTASSIUM 4.2 mmol/L (3.6-5.0); SODIUM 143 mmol/L (132-148)
[2017-04-11] MEDS ORDERED: cefTRIAXone (Rocephin) 250 mg Inj IM STA (12:39)
[2017-04-11 12:56] LABS: BASO # 0.02 K/mm3 (0.0-2.0); BASO % 0.2 % (0.0-3.0); EOS # 0.3 (0.0-0.7); EOS % 3.9 % (1.5-5.0); GRAN # 5.77 (1.4-6.5); GRAN % 68.5 % (50.0-68.0); HEMATOCRIT 34.7 % (36.0-48.0); LYMPH # 1.8 (1.2-3.4); LYMPH % 21.5 % (22.0-35.0); MEAN CELL VOLUME 72.4 fL (80.0-105.0); MEAN CORPUSCULAR HEMOGLOBIN 23.6 pg (25.0-35.0); MEAN CORPUSCULAR HGB CONC 32.6 g/dl (31.0-37.0); MEAN PLATELET VOLUME 9.4 fl (7.0-11.0); MONO # 0.5 (0.1-0.6); MONO % 5.9 % (1.0-6.0); PLATELET COUNT 257 10^3/uL (120.0-450.0); RED CELL DISTRIBUTION WIDTH 15.9 % (11.5-14.5); WHITE BLOOD COUNT 8.4 10^3/ul (4.5-11.0)
[2017-04-11 13:42] VITALS: BP 100/68; PULSE 70; RESP 18; TEMP 98; O2SAT 98
== END 2017-04-11 13:46 | disposition home or self-care (01) ==
LOC: ED 11:27
DX: N73.9 Female pelvic inflammatory disease, unspecified (principal)
CPT/HCPCS: 80053; 81003; 83690; 84703; 85025; 87491; 87591; 96361; 96372; 96374; 99283; J0696; J1885; J7040

== ENCOUNTER 2017-04-12 00:23 | Inpatient (IN) | payer BC ==
[2017-04-12 00:24] VITALS: BMI 18.4
[2017-04-12] MEDS ORDERED: Sodium Chloride 0.9% 1,000 ML IV STA (01:14)
[2017-04-12] MEDS ORDERED: Morphine 2 mg/ml ISec IVP STA ×3 (01:14→03:24)
--- NOTE | 2017-04-12 01:14 | ED PDOC ---
Arrival/HPI - General Chief Complaint: Abdominal Pain Time Seen by Provider: 04/12/17 00:52 Historian: Patient - History of Present Illness Narrative History of Present Illness (Text): 04/12/17 01:09 Suyapa Gutierrez is a 27 year old female, whose past medical history includes peptic ulcer disease, sickle cell trait, dermoid cyst rupture, , depression, and anxiety, who presents to the ED complaining of diffuse abdominal pain. Patient is yelling and screaming in ED, stating she is in severe pain. Patient is refusing to answer questions and requesting pain medications. Patient was seen in the ED yesterday, treated for suspected pelvic inflammatory disease, and discharged home. Symptom Onset: Gradual Symptom Course: Unchanged Severity Level: Severe Activities at Onset: Rest, Light Context: Home Past Medical History - Provider Review Nursing Documentation Reviewed: Yes - Infectious Disease Hx of Infectious Diseases: None - Tetanus Immunization Tetanus Immunization: Unknown - Cardiac Hx Cardiac Disorders: No - Pulmonary Hx Respiratory Disorders: No - Neurological Hx Neurological Disorder: No - HEENT Hx HEENT Disorder: No - Renal Hx Renal Disorder: No - Endocrine/Metabolic Hx Endocrine Disorders: No - Hematological/Oncological Hx Blood Disorders: Yes Hx Sickle Cell Trait: Yes - Integumentary Hx Dermatological Disorder: No - Musculoskeletal/Rheumatological Hx Musculoskeletal Disorders: No Hx Falls: No - Gastrointestinal Hx Gastrointestinal Disorders: Yes Hx Gastrointestinal Ulcer: Yes Other/Comment: ABD PAIN, ULCER - Genitourinary/Gynecological Hx Genitourinary Disorders: Yes Other/Comment: VAGINAL BLEEDING - Psychiatric Hx Anxiety: Yes Hx Depression: Yes Hx Substance Use: No - Surgical History Hx Section: Yes - Anesthesia Hx Anesthesia: Yes Hx Anesthesia Reactions: No Hx Malignant Hyperthermia: No Family/Social History - Physician Review Nursing Documentation Reviewed: Yes Family/Social History: No Known Family HX Smoking Status: Never Smoked Hx Alcohol Use: No Hx Substance Use: No Allergies/Home Meds Allergies/Adverse Reactions: Allergies No Known Allergies Allergy (Verified 04/11/17 11:31) Home Medications: Home Meds Medication Instructions Recorded Confirmed No Known Home Med 04/11/17 04/12/17 Review of Systems - Physician Review All systems were reviewed & negative as marked: Yes - Review of Systems Constitutional: Normal. absent: Fevers Eyes: Normal ENT: Normal Respiratory: Normal. absent: SOB, Cough Cardiovascular: Normal. absent: Chest Pain Gastrointestinal: Abdominal Pain Genitourinary Female: Normal Musculoskeletal: Normal. absent: Back Pain, Neck Pain Skin: Normal. absent: Rash Neurological: Normal. absent: Headache, Dizziness Endocrine: Normal Hemo/Lymphatic: Normal Psychiatric: Normal Physical Exam Vital Signs Reviewed: Yes Vital Signs Temp Pulse Resp BP Pulse Ox 04/12/17 02:49 116 H 18 113/76 100 04/12/17 00:39 99.6 F 148 H 20 129/85 100 Temperature: Afebrile Blood Pressure: Normal Pulse: Regular Respiratory Rate: Normal Appearance: Positive for: Well-Appearing, Non-Toxic, Comfortable Pain Distress: None Mental Status: Positive for: Alert and Oriented X 3 - Systems Exam Head: Present: Atraumatic, Normocephalic Pupils: Present: PERRL Extroacular Muscles: Present: EOMI Conjunctiva: Present: Normal Mouth: Present: Moist Mucous Membranes Neck: Present: Normal Range of Motion Respiratory/Chest: Present: Clear to Auscultation, Good Air Exchange. No: Respiratory Distress, Accessory Muscle Use Cardiovascular: Present: Regular Rate and Rhythm, Normal S1, S2. No: Murmurs Abdomen: Present: Tenderness (Diffuse abdominal tenderness), Normal Bowel Sounds. No: Distention, Peritoneal Signs Back: Present: Normal Inspection Upper Extremity: Present: Normal Inspection. No: Cyanosis, Edema Lower Extremity: Present: Normal Inspection. No: Edema Neurological: Present: GCS=15, CN II-XII Intact, Speech Normal Skin: Present: Warm, Dry, Normal Color. No: Rashes Psychiatric: Present: Alert, Oriented x 3, Normal Insight, Normal Concentration Medical Decision Making ED Course and Treatment: 04/12/17 01:09 Impression: 27 y/o female c/o severe diffuse abdominal pain. Plan: -- CT Abdomen and Pelvis w/o contrast -- Labs -- UA -- IV fluids -- Morphine -- Reassess and disposition Prior Visits: Notes and results from previous visits were reviewed. Patient was seen in the ED yesterday (04/11/2017) , treated for suspected pelvic inflammatory disease, and discharged home. 04/12/17 02:47 Reviewed radiology, CT Abdomen and Pelvis w/o contrast shows: 1. New periportal edema of the liver which can be seen with increased volume status or hepatocellular disease such as hepatitis. 2. Stable 3.7 cm dermoid in the pelvic cul-de-sac. 04/12/17 04:[address] Salazar, who requests pt go to hospitalist service. 04/12/17 04:07 Case discussed with medical clerk production corrugator, who is aware and agrees with plan. House physician paged. 04/12/17 04:[address] Urbano, who is aware and agrees with plan. Accepts pt in to hospitalist service. Pt will go to [facility] observation for abdominal pain. - Lab Interpretations Lab Results: 04/12/17 01:00 04/12/17 01:00 Lab Results 04/12/17 01:00: WBC 11.1 H D, RBC 4.53, Hgb 10.8 L, Hct 33.0 L, MCV 72.8 L, MCH 23.8 L, MCHC 32.7, RDW 16.0 H, Plt Count 240, MPV 9.2 04/12/17 01:00: Sodium 140, Potassium 4.5, Chloride 107, Carbon Dioxide 24, Anion Gap 14, BUN 11, Creatinine 0.6, Est GFR ( Amer) > 60, Est GFR (Non- Af Amer) > 60, Random Glucose 85, Calcium 8.6, Total Bilirubin 0.9, AST 70 H, ALT 37, Alkaline Phosphatase 65, Total Protein 7.6, Albumin 4.4, Globulin 3.2, Albumin/Globulin Ratio 1.4, Lipase 115 I have reviewed the lab results: Yes - RAD Interpretation Narrative RAD Interpretations (Text): CT Abdomen and Pelvis w/o contrast shows: Lower thorax: Bibasal atelectasis affects the lungs. ABDOMEN: Liver: New periportal edema which can be seen with increased volume status or hepatocellular disease such as hepatitis. Gallbladder and bile ducts: The gallbladder is unremarkable. No biliary ductal dilatation. Pancreas: The pancreas is unremarkable. Spleen: The spleen is unremarkable. Adrenals: The adrenal glands are unremarkable. Kidneys and ureters: No obstructing stones. No hydronephrosis. Stomach and bowel: No evidence of bowel obstruction. No pericolonic inflammatory stranding. Appendix: A normal appendix is identified. PELVIS: Bladder: No focal wall thickening of the urinary bladder. No stones. Reproductive: Stable 3.7 cm dermoid in the pelvic cul-de-sac. ABDOMEN and PELVIS: Intraperitoneal space: No significant peritoneal free fluid. No free peritoneal air. No significant peritoneal free fluid. No free peritoneal air. Bones/joints: No acute osseous abnormality. Soft tissues: No soft tissue swelling. Vasculature: Significantly limited assessment of the vasculature without contrast. No aortic aneurysm. Lymph nodes: No enlarged lymph nodes. IMPRESSION: 1. New periportal edema of the liver which can be seen with increased volume status or hepatocellular disease such as hepatitis. 2. Stable 3.7 cm dermoid in the pelvic cul-de-sac. Radiology Orders: 04/12/17 01:13 ABD & PELVIS W/O PO OR IV CONT [CT] Stat Cloth Opener Hand: Radiologist - Medication Orders Current Medication Orders: Discontinued Medications Sodium Chloride (Sodium Chloride 0.9%) 1,000 mls @ 999 mls/hr IV .Q1H1M STA Stop: 04/12/17 02:14 Last Admin: 04/12/17 01:20 Dose: 999 mls/hr Morphine Sulfate (Morphine) 2 mg IVP STAT STA Stop: 04/12/17 01:15 Last Admin: 04/12/17 01:20 Dose: 2 mg Re-Assess: [facility] Pain Assessment Document 04/12/17 02:20 JO (Rec: 04/12/17 02:35 [facility] [id number]) Pain Reassessment Is this a pain reassessment? Yes Sleep Is patient sleeping during reassessment? No Presence of Pain Presence of Pain Yes Pain Scale Used Pain Scale Used Numeric Description Intensity of Pain at present 8 Morphine Sulfate (Morphine) 2 mg IVP STAT STA Stop: 04/12/17 02:30 Last Admin: 04/12/17 02:35 Dose: 2 mg Morphine Sulfate (Morphine) 2 mg IVP STAT STA Stop: 04/12/17 03:25 Last Admin: 04/12/17 03:56 Dose: 2 mg Ondansetron HCl (Zofran Inj) 4 mg IVP ONCE ONE Stop: 04/12/17 02:30 Last Admin: 04/12/17 02:35 Dose: 4 mg - Miriamibe Statement The provider has reviewed the documentation as recorded by the Flash Yanes Provider Attestation: All medical record entries made by the Flash were at my direction and personally dictated by me. I have reviewed the chart and agree that the record accurately reflects my personal performance of the history, physical exam, medical decision making, and the department course for this patient. I have also personally directed, reviewed, and agree with the discharge instructions and disposition. Disposition/Present on Arrival - Present on Arrival Any Indicators Present on Arrival: No History of DVT/PE: No History of Uncontrolled Diabetes: No Urinary Catheter: No History of Decub. Ulcer: No History Surgical Site Infection Following: None - Disposition Have Diagnosis and Disposition been Completed?: Yes Diagnosis: Intractable abdominal pain Disposition: HOSPITALIZED Disposition Time: 04:30 Patient Plan: Observation Patient Problems: Current Active Problems Problem Status Onset Intractable abdominal pain Acute Condition: STABLE
[2017-04-12 01:29] LABS: MEAN CELL VOLUME 72.8 fL (80.0-105.0); MEAN CORPUSCULAR HEMOGLOBIN 23.8 pg (25.0-35.0); MEAN CORPUSCULAR HGB CONC 32.7 g/dl (31.0-37.0); MEAN PLATELET VOLUME 9.2 fl (7.0-11.0); WHITE BLOOD COUNT 11.1 10^3/ul (4.5-11.0)
[2017-04-12 01:38] LABS: ALB/GLOB RATIO 1.4 (1.1-1.8); ALKALINE PHOSPHATASE 65 U/L (38-133); ALT/SGPT 37 U/L (7-56); AST/SGOT 70 U/L (15-39); BILIRUBIN,TOTAL 0.9 mg/dL (0.2-1.3); BLOOD UREA NITROGEN 11 mg/dL (7-21); CALCIUM 8.6 mg/dL (8.4-10.5); CARBON DIOXIDE 24 mmol/L (21-33); CHLORIDE 107 mmol/L (98-107); GFR AFRICAN-AMERICAN > 60; GLUCOSE,RANDOM 85 mg/dL (70-110); LIPASE 115 U/L (23-300); POTASSIUM 4.5 mmol/L (3.6-5.0); SODIUM 140 mmol/L (132-148); TOTAL PROTEIN 7.6 g/dL (5.8-8.3)
[2017-04-12 04:28] LABS: URINE BILIRUBIN NEGATIVE (NEGATIVE); URINE BLOOD NEGATIVE (NEGATIVE); URINE GLUCOSE (UA) NEGATIVE (NEGATIVE); URINE KETONE TRACE mg/dL (NEGATIVE); URINE LEUKOCYTE ESTERASE TRACE Leu/uL (NEGATIVE); URINE PROTEIN NEGATIVE mg/dL (<30 mg/dL); URINE UROBILINOGEN 0.2 E.U./dL (<1 E.U./dL)
[2017-04-12 04:35] LABS: URINE APPEARANCE SL CLOUDY (CLEAR); URINE COLOR STRAW (YELLOW)
--- NOTE | 2017-04-12 04:43 | CP.PCM.HP ---
History of Present Illness - History of Present Illness History of Present Illness: The patient is a 27 year old woman with a history of PUD, dermoid cyst, sickle cell train, depression and anxiety disorder who presents with 1 day of acute epigastric abdominal pain with associated recurrent nausea and non-bloody, non- bilious vomiting. She also reports several episodes of watery diarrhea. She initially presented to the [facility] ED earlier in the day at which time a pelvic exam was done and she was discharged home with antibiotics for treatment of pelvic inflammatory disease. Upon reaching home, her pain became so severe that she was forced to return to the ED again the same evening. She denies F/C, recent dietary changes, dysuria, or recent travel. Her epigastric pain is unaffected by oral intake or movement. Present on Admission - Present on Admission Any Indicators Present on Admission: No History of DVT/PE: No History of Uncontrolled Diabetes: No Urinary Catheter: No Review of Systems - Review of Systems All systems: reviewed and no additional remarkable complaints except - Constitutional Constitutional: As Per HPI - EENT Eyes: As Per HPI Nose/Mouth/Throat: As Per HPI - Cardiovascular Cardiovascular: As Per HPI - Respiratory Respiratory: As Per HPI - Gastrointestinal Gastrointestinal: As Per HPI - Genitourinary Genitourinary: As Per HPI - Neurological Neurological: As Per HPI Past Patient History - Infectious Disease Hx of Infectious Diseases: None - Tetanus Immunizations Tetanus Immunization: Unknown - Past Medical History & Family History Past Family History: Reviewed and not pertinent - Past Social History Smoking Status: Never Smoked Cigar Use: No Alcohol: None Drugs: Denies - CARDIAC Hx Cardiac Disorders: No - PULMONARY Hx Respiratory Disorders: No - NEUROLOGICAL Hx Neurological Disorder: No - HEENT Hx HEENT Problems: No - RENAL Hx Chronic Kidney Disease: No - ENDOCRINE/METABOLIC Hx Endocrine Disorders: No - HEMATOLOGICAL/ONCOLOGICAL Hx Blood Disorders: Yes - INTEGUMENTARY Hx Dermatological Problems: No - MUSCULOSKELETAL/RHEUMATOLOGICAL Hx Musculoskeletal Disorders: No Hx Falls: No - GASTROINTESTINAL Hx Gastrointestinal Disorders: Yes Other/Comment: ABD PAIN, ULCER - GENITOURINARY/GYNECOLOGICAL Hx Genitourinary Disorders: Yes Other/Comment: VAGINAL BLEEDING - PSYCHIATRIC Hx Anxiety: Yes Hx Depression: Yes Hx Substance Use: No - SURGICAL HISTORY Hx Section: Yes - ANESTHESIA Hx Anesthesia: Yes Hx Anesthesia Reactions: No Hx Malignant Hyperthermia: No Meds Allergies/Adverse Reactions: Allergies Allergy/AdvReac Type Severity Reaction Status Date / Time No Known Allergies Allergy Verified 04/11/17 11:31 Physical Exam - Constitutional Additional comments: In moderate distress due to abdominal pain; A&OX4 - Head Exam Head Exam: ATRAUMATIC, NORMAL INSPECTION, NORMOCEPHALIC - Eye Exam Eye Exam: EOMI, Normal appearance, PERRL - ENT Exam ENT Exam: Mucous Membranes Dry - Neck Exam Neck exam: Positive for: Normal Inspection - Respiratory Exam Respiratory Exam: Clear to Auscultation Bilateral, NORMAL BREATHING PATTERN - Cardiovascular Exam Cardiovascular Exam: Tachycardia, REGULAR RHYTHM - GI/Abdominal Exam Additional comments: Tenderness to palpation in the mid-epigastric region with associated voluntary guarding; No rebound tenderness or peritoneal signs; Non-distended, soft abdomen ; No supra-pubic tenderness - Rectal Exam Rectal Exam: Deferred - Extremities Exam Extremities exam: Positive for: normal inspection - Neurological Exam Neurological exam: Alert, CN II-XII Intact, Normal Gait, Oriented x3, Reflexes Normal Results - Vital Signs Recent Vital Signs: Last Vital Signs Temp 99.6 F 04/12/17 00:39 Pulse 116 H 04/12/17 02:49 Resp 18 04/12/17 02:49 BP 113/76 04/12/17 02:49 Pulse Ox 100 04/12/17 02:49 - Labs Result Diagrams: 04/12/17 01:00 04/12/17 01:00 - Imaging and Cardiology CT scan - abdomen Status: Report reviewed by me Assessment & Plan - Assessment and Plan (Free Text) Assessment: A/P: The patient is a 27 year old woman with a history of PUD, dermoid cyst, sickle cell train, depression and anxiety disorder who presents with acute, intractable epigastric pain, recurrent N/V and diarrhea which is likely due to either acute gastroenteritis vs PUD. 1. Acute Epigastric Pain (with N/V and Diarrhea): -ddx: PUD vs gastroenteritis -GI consult placed (especially given the patient's history of PUD) -IV Protonix -keep NPO -aggressive IVF's -IV Morphine and Zofran for symptomatic relief, as needed -will check stool studies as well 2. Pelvic Inflammatory Disease: -although she was given this diagnosis earlier in the day by the ED physician, her current symptoms less likely favor this diagnosis -however, it is possible that she could have two separate diagnoses -therefore, will continue with the same antibiotics prescribed earlier by ED physician DVT PPx: SCD's GI PPx: Protonix
[2017-04-12 04:48] LABS: URINE RBC NEGATIVE /hpf (0-2)
[2017-04-12 04:49] LABS: URINE WBC 0 - 2 /hpf (0-6)
[2017-04-12 04:50] LABS: URINE BACTERIA SMALL (NEG)
[2017-04-12] MEDS: Sodium Chloride 0.9% 1,000 ML IV SCH ×2 (06:09→21:31)
[2017-04-12 06:29] LABS: MAGNESIUM 1.6 mg/dL (1.7-2.2); PHOSPHOROUS 3.8 mg/dL (2.5-4.5)
--- NOTE | 2017-04-12 07:29 | CT ---
PROCEDURE: CT abdomen pelvis 04/12/2017. HISTORY: diffuse abdominal pain COMPARISON: Comparison made with CT scan abdomen pelvis 02/19/2017 of TECHNIQUE: Pelvis performed in standard fashion without oral or intravenous contrast material. . Coronal and Sagittal reformats generated. Radiation dose: Total exam DLP = 213.19 mGy-cm. This CT exam was performed using one or more of the following dose reduction techniques: Automated exposure control, adjustment of the mA and/or kV according to patient size, and/or use of iterative reconstruction technique. FINDINGS: LOWER THORAX: Mild bibasilar atelectasis LIVER: Liver exhibits normal size. Mild periportal edema. Clinical correlation recommended. Rule out hepatitis versus mild increased volume status No obvious hepatic mass or collection seen. GALLBLADDER AND BILE DUCTS: Unremarkable. PANCREAS: Unremarkable. No mass. No ductal dilatation. SPLEEN: Unremarkable. No splenomegaly. ADRENALS: Unremarkable. KIDNEYS AND URETERS: Unremarkable. No stone or hydronephrosis. BLADDER: Grossly unremarkable. REPRODUCTIVE: Re- demonstrated is 3.7 cm dermoid (predominately fat containing associate with a chunk like calcification) within the cul de sac unchanged from prior study APPENDIX: Unremarkable. BOWEL: Unremarkable. No obstruction. No gross mural thickening. PERITONEUM: Unremarkable. No fluid collection. No free air. LYMPH NODES: Unremarkable. No enlarged lymph nodes. VASCULATURE: Unremarkable. No aortic aneurysm. BONES: No fracture or destructive lesion. OTHER FINDINGS: None. IMPRESSION: No change 3.7 cm the dermoid cyst within cul de sac. Mild periportal edema ; rule out mild hepatitis increased volume status. Clinical correlation recommended.
[2017-04-12 07:52] LABS: ADD MANUAL DIFF? NO
[2017-04-12 08:04] LABS: BASO # 0.01 K/mm3 (0.0-2.0); BASO % 0.1 % (0.0-3.0); EOS % 0.1 % (1.5-5.0); GRAN # 10.93 (1.4-6.5); GRAN % 87.2 % (50.0-68.0); HEMATOCRIT 31.5 % (36.0-48.0); LYMPH # 0.9 (1.2-3.4); LYMPH % 7.1 % (22.0-35.0); MEAN CELL VOLUME 72.4 fL (80.0-105.0); MEAN CORPUSCULAR HEMOGLOBIN 23.7 pg (25.0-35.0); MEAN CORPUSCULAR HGB CONC 32.7 g/dl (31.0-37.0); MEAN PLATELET VOLUME 8.9 fl (7.0-11.0); MONO # 0.7 (0.1-0.6); MONO % 5.5 % (1.0-6.0); PLATELET COUNT 206 10^3/uL (120.0-450.0); WHITE BLOOD COUNT 12.5 10^3/ul (4.5-11.0)
[2017-04-12] MEDS: Morphine 2 mg/ml ISec IVP PRN ×2 (08:38→17:25)
[2017-04-12 12:12] LABS: RETIC% 0.93 % (0.5-1.5)
[2017-04-12 18:27] VITALS: O2SAT 100
--- NOTE | 2017-04-12 19:03 | CON ---
DATE: 04/12/2017 REQUESTING PHYSICIAN: Dr. David Fabian. REASON FOR CONSULTATION: I have been asked to see this 27-year-old female with apparent history of chronic abdominal pain who comes to the Emergency Room yelling and screaming with abdominal pain, asking for pain medications. She was seen in the Emergency Room yesterday and treated for suspected pelvic inflammatory disease. She returns today with diffuse abdominal pain. The patient has had multiple ER visits as well as hospitalizations from 07/2016 to the present with 3 prior hospitalizations for abdominal pain as well as multiple ER visits. The patient had an endoscopy with Dr. Jimbo kaye in 2015, which revealed multiple superficial gastric ulcers in the antrum as well as a few duodenal ulcers. Biopsies showed chronic gastritis. She has also had numerous imaging studies including 4 abdominal CAT scans from 6 months ago as well as transvaginal ultrasound and negative CAT scans of the abdomen and pelvis. Her most recent CAT scan of the abdomen and pelvis performed here in the hospital has shown some nonspecific periportal inflammation as well as what appears to be a dermoid cyst in the pelvis, which has not changed since her prior CAT scan from 2 months ago. Her abdominal pain is described as being diffuse. She denies any fevers, chills, hematemesis, rectal bleeding, melena, nausea or vomiting. PAST MEDICAL HISTORY: Notable for depression, anxiety disorder, peptic ulcer disease, sickle cell trait. SOCIAL HISTORY: She denies cigarette smoking or alcohol use. FAMILY HISTORY: Noncontributory. REVIEW OF SYSTEMS: A 14-point review of systems is notable for diffuse abdominal pain. PHYSICAL EXAMINATION: GENERAL: Well-developed female lying in bed in no acute distress. She appears comfortable. VITAL SIGNS: Reveal temperature of 98.9, blood pressure 105/60, heart rate is 67. HEENT: Reveals sclerae to be white, conjunctivae pink. NECK: Supple. CHEST: Reveals lungs to be clear. HEART: Reveals a regular rate and rhythm. ABDOMEN: Soft, mild diffuse tenderness. No rebound, no guarding. EXTREMITIES: Show no edema. LABORATORY DATA: Reveals white blood cell count 12.5, hemoglobin of 10.3. Chemistries reveal AST of 70, ALT 37. Alkaline phosphatase is normal. Lipase is normal. IMPRESSION: A 27-year-old female with chronic recurrent abdominal pain. The patient has been asking for pain medications. She has had numerous imaging studies with a CAT scan and transvaginal pelvic ultrasound over the last 6 months. The patient may be seeking narcotic analgesics. RECOMMENDATIONS: 1. Advance diet as tolerated. 2. Check sedimentation rate. 3. Continue PPI. Keenan Cordova MD cc: [phone] TT: 04/12/2017 19:02:37 Confirmation # [id number] Dictation # [id number] mn ANIL
--- NOTE | 2017-04-12 20:21 | CARD ---
APPROVED REPORT EKG Measurement Heart [id number] <Conclusion> Normal sinus rhythm Rightward axis Borderline ECG
[2017-04-13 07:24] LABS: ADD MANUAL DIFF? NO
[2017-04-13 07:37] LABS: BASO # 0.02 K/mm3 (0.0-2.0); BASO % 0.2 % (0.0-3.0); EOS # 0.1 (0.0-0.7); GRAN # 5.71 (1.4-6.5); GRAN % 68.9 % (50.0-68.0); HEMATOCRIT 30.3 % (36.0-48.0); LYMPH # 2.1 (1.2-3.4); LYMPH % 25.4 % (22.0-35.0); MEAN CELL VOLUME 72.3 fL (80.0-105.0); MEAN CORPUSCULAR HEMOGLOBIN 23.6 pg (25.0-35.0); MEAN CORPUSCULAR HGB CONC 32.7 g/dl (31.0-37.0); MEAN PLATELET VOLUME 9.3 fl (7.0-11.0); MONO # 0.4 (0.1-0.6); MONO % 4.5 % (1.0-6.0); PLATELET COUNT 225 10^3/uL (120.0-450.0); RED CELL DISTRIBUTION WIDTH 16.1 % (11.5-14.5); WHITE BLOOD COUNT 8.3 10^3/ul (4.5-11.0)
[2017-04-13 07:38] LABS: ALB/GLOB RATIO 1.3 (1.1-1.8); ALKALINE PHOSPHATASE 99 U/L (38-133); ALT/SGPT 210 U/L (7-56); AST/SGOT 115 U/L (15-39); BILIRUBIN,TOTAL 0.4 mg/dL (0.2-1.3); BLOOD UREA NITROGEN 11 mg/dL (7-21); CALCIUM 8.2 mg/dL (8.4-10.5); CARBON DIOXIDE 17 mmol/L (21-33); CHLORIDE 112 mmol/L (95-110); GFR AFRICAN-AMERICAN > 60; GLUCOSE,RANDOM 63 mg/dL (70-110); POTASSIUM 3.4 mmol/L (3.6-5.0); SODIUM 141 mmol/L (132-148); TOTAL PROTEIN 5.9 g/dL (5.8-8.3)
[2017-04-13 08:02] VITALS: BP 104/66; PULSE 93; RESP 22; TEMP 98.9
[2017-04-13] MEDS ORDERED: Potassium Chloride 20 mEq ER Tab PO ONE (08:34)
[2017-04-13] MEDS ORDERED: Potassium Chloride 20 mEq/15 ml LIQ UD PO STA (08:41)
[2017-04-13 10:02] LABS: MAGNESIUM 1.6 mg/dL (1.7-2.2); PHOSPHOROUS 2.8 mg/dL (2.5-4.5)
--- NOTE | 2017-04-13 13:58 | PN ---
DATE: 04/13/2017 SUBJECTIVE: The patient is lying in bed, comfortable. Her abdominal pain is much improved. She den ies any nausea, vomiting. She is tolerating solid food. PHYSICAL EXAMINATION: VITAL SIGNS: Reveal temperature of 98.9, blood pressure 104/66, heart rate 93. ABDOMEN: Soft, nontender, no guarding. LABORATORY DATA: Reveal hemoglobin 9.9. Potassium of 3.4. IMPRESSION: A 27-year-old female with chronic recurrent abdominal pain with multiple negative CT sca n imaging studies in the last several months. She did have nonspecific periportal edema on CAT scan on this admission. Etiology is unclear. Her liver enzymes were essentially normal without any evide nce of hepatitis. She does have a dermoid ovarian cyst. RECOMMENDATIONS: If diet is tolerated, the patient can be discharged home with outpatient followup. She can see her private song lyricist on the outside. Keenan Cordova MD cc: 79 TT: 04/13/2017 13:57:40 Confirmation # [id number] Dictation # [id number] tn
--- NOTE | 2017-04-13 20:32 | CP.PCM.DIS ---
<Robert Espinoza - Last Filed: 04/13/17 21:39> Provider - Provider Date of Admission: 04/12/17 17:55 Attending physician: Liyah Fabian MD Time Spent in preparation of Discharge (in minutes): 35 Diagnosis - Discharge Diagnosis (1) Intractable abdominal pain Status: Acute Hospital Course - Lab Results Lab Results: Most Recent Lab Values WBC 8.3 10^3/ul (4.5-11.0) D 04/13/17 07:00 RBC 4.19 10^6/uL (3.5-6.1) 04/13/17 07:00 Hgb 9.9 gm/dL (12.0-16.0) L 04/13/17 07:00 Hct 30.3 % (36.0-48.0) L 04/13/17 07:00 MCV 72.3 fL (80.0-105.0) L 04/13/17 07:00 MCH 23.6 pg (25.0-35.0) L 04/13/17 07:00 MCHC 32.7 g/dl (31.0-37.0) 04/13/17 07:00 RDW 16.1 % (11.5-14.5) H 04/13/17 07:00 Plt Count 225 10^3/uL (120.0-450.0) 04/13/17 07:00 MPV 9.3 fl (7.0-11.0) 04/13/17 07:00 Gran % 68.9 % (50.0-68.0) H 04/13/17 07:00 Lymph % (Auto) 25.4 % (22.0-35.0) 04/13/17 07:00 Grainger % (Auto) 4.5 % (1.0-6.0) 04/13/17 07:00 Eos % (Auto) 1.0 % (1.5-5.0) L 04/13/17 07:00 Baso % (Auto) 0.2 % (0.0-3.0) 04/13/17 07:00 Gran # 5.71 (1.4-6.5) 04/13/17 07:00 Lymph # 2.1 (1.2-3.4) 04/13/17 07:00 Grainger # 0.4 (0.1-0.6) 04/13/17 07:00 Eos # 0.1 (0.0-0.7) 04/13/17 07:00 Baso # 0.02 K/mm3 (0.0-2.0) 04/13/17 07:00 ESR 5 mm/hr (0.0-20.0) 04/13/17 07:00 Retic Count 0.93 % (0.5-1.5) 04/12/17 07:45 Sodium 141 mmol/L (132-148) 04/13/17 07:00 Potassium 3.4 mmol/L (3.6-5.0) L 04/13/17 07:00 Chloride 112 mmol/L (95-110) H 04/13/17 07:00 Carbon Dioxide 17 mmol/L (21-33) L 04/13/17 07:00 Anion Gap 15 (10-20) 04/13/17 07:00 BUN 11 mg/dL (7-21) 04/13/17 07:00 Creatinine 0.7 mg/dL (0.5-1.4) 04/13/17 07:00 Est GFR ( Amer) > 60 04/13/17 07:00 Est GFR (Non-Af Amer) > 60 04/13/17 07:00 Random Glucose 63 mg/dL (70-110) L 04/13/17 07:00 Calcium 8.2 mg/dL (8.4-10.5) L 04/13/17 07:00 Phosphorus 2.8 mg/dL (2.5-4.5) 04/13/17 07:00 Magnesium 1.6 mg/dL (1.7-2.2) L 04/13/17 07:00 Total Bilirubin 0.4 mg/dL (0.2-1.3) 04/13/17 07:00 AST 115 U/L (15-39) H 04/13/17 07:00 ALT 210 U/L (7-56) H 04/13/17 07:00 Alkaline Phosphatase 99 U/L (38-133) 04/13/17 07:00 Troponin I < 0.01 ng/mL 04/12/17 10:30 C-React Prot High Sens > 15.00 mg/L (1.00-3.00) H 04/13/17 07:00 Total Protein 5.9 g/dL (5.8-8.3) 04/13/17 07:00 Albumin 3.3 g/dL (3.0-4.8) 04/13/17 07:00 Globulin 2.6 gm/dL 04/13/17 07:00 Albumin/Globulin Ratio 1.3 (1.1-1.8) 04/13/17 07:00 Lipase 115 U/L (23-300) 04/12/17 01:00 TSH 3rd Generation 1.0 MIU/ml (0.46-4.68) 04/12/17 01:00 Urine Color Straw (YELLOW) 04/12/17 04:00 Urine Appearance Sl cloudy (CLEAR) 04/12/17 04:00 Urine pH 6.0 (4.7-8.0) 04/12/17 04:00 Ur Specific [place] 1.010 (1.005-1.035) 04/12/17 04:00 Urine Protein Negative mg/dL (<30 mg/dL) 04/12/17 04:00 Urine Glucose (UA) Negative mg/dL (NEGATIVE) 04/12/17 04:00 Urine Ketones Trace mg/dL (NEGATIVE) H 04/12/17 04:00 Urine Blood Negative (NEGATIVE) 04/12/17 04:00 Urine Nitrate Negative (NEGATIVE) 04/12/17 04:00 Urine Bilirubin Negative (NEGATIVE) 04/12/17 04:00 Urine Urobilinogen 0.2 E.U./dL (<1 E.U./dL) 04/12/17 04:00 Ur Leukocyte Esterase Trace Hannah/uL (NEGATIVE) H 04/12/17 04:00 Urine RBC Negative /hpf (0-2) 04/12/17 04:00 Urine WBC 0 - 2 /hpf (0-6) 04/12/17 04:00 Ur Epithelial Cells 3 - 4 /hpf (0-5) 04/12/17 04:00 Urine Bacteria Small (NEG) 04/12/17 04:00 Urine HCG, Qual Negative (NEGATIVE) 04/12/17 04:00 Urine Opiates Screen Positive (NEGATIVE) H 04/12/17 12:40 Urine Methadone Screen Negative (NEGATIVE) 04/12/17 12:40 Acetaminophen < 10.0 ug/ml (10.0-20.0) L 04/12/17 10:30 Ur Barbiturates Screen Negative (NEGATIVE) 04/12/17 12:40 Ur Phencyclidine Scrn Negative (NEGATIVE) 04/12/17 12:40 Ur Amphetamines Screen Negative (NEGATIVE) 04/12/17 12:40 U Benzodiazepines Scrn Negative (NEGATIVE) 04/12/17 12:40 U Oth Cocaine Metabols Negative (NEGATIVE) 04/12/17 12:40 U Cannabinoids Screen Negative (NEGATIVE) 04/12/17 12:40 Hepatitis A IgM Ab Negative (NEGATIVE) 04/12/17 10:30 Hep Bs Antigen Negative (NEGATIVE) 04/12/17 10:30 Hep B Core IgM Ab Negative (NEGATIVE) 04/12/17 10:30 Hepatitis C Antibody Negative (NEGATIVE) 04/12/17 10:30 - Hospital Course Hospital Course: The patient is a 27 year old woman with a history PUD, dermoid cyst, sickle cell train, depression and anxiety disorder who presented with 1 day of acute epigastric abdominal pain with associated recurrent nausea and non-bloody, non- bilious vomiting. She also reports several episodes of watery diarrhea. She [place] [facility] [place] on the day of admission and pelvic exam was done and she was discharged home with antibiotics for treatment of pelvic inflammatory disease. Upon reaching home, her pain became so severe that she was forced to return to the ED again the same evening. A CT abdomen/pelvis was unremarkable with mild periportal edema. Pt. states she is not compliant on her home medication of Pepcid, which she should be taking daily. She was evaluated by GI with the recommendation to continue PPIs. The following day, the patient did not have any abdominal pain, nausea, vomiting, diarrhea and was tolerating a liquid diet in the morning and a full diet by the afternoon. Pt. was then discharged home with instructions to follow up with her PMD and her GI doctor. This is a brief account of her stay, for more details please refer to her chart. - Date & Time of H&P Date of H&P: 04/13/17 Time of H&P: 07:20 Discharge Exam - Head Exam Head Exam: ATRAUMATIC, NORMAL INSPECTION, NORMOCEPHALIC - Eye Exam Eye Exam: EOMI, Normal appearance - ENT Exam ENT Exam: Mucous Membranes Moist - Neck Exam Neck exam: Full Rom - Respiratory Exam Respiratory Exam: Clear to PA & Lateral, NORMAL BREATHING PATTERN, UNREMARKABLE - Cardiovascular Exam Cardiovascular Exam: REGULAR RHYTHM, RRR, +S1, +S2. absent: JVD - GI/Abdominal Exam GI & Abdominal Exam: Normal Bowel Sounds, Soft. absent: Tenderness, Unremarkable - Extremities Exam Extremities exam: full ROM - Back Exam Back exam: NORMAL INSPECTION. absent: CVA tenderness (L), CVA tenderness (R), rash noted, tenderness, vertebral tenderness - Neurological Exam Neurological exam: Alert, CN II-XII Intact, Normal Gait, Oriented x3, Reflexes Normal - Psychiatric Exam Psychiatric exam: Normal Affect, Normal Mood - Skin Skin Exam: Dry, Intact, Normal Color, Warm Discharge Plan - Discharge Medications Prescriptions: Famotidine [Pepcid] 40 mg PO DAILY #30 tab - Follow Up Plan Condition: STABLE Disposition: HOME/ ROUTINE Instructions: Abdominal Pain (ED) Additional Instructions: Patient medically stable for discharge. Please follow up with your primary care doctor within 1 week. Please follow up with a [facility]ger of your choice withing 1 week. Please take Pepcid 40mg daily for 4 weeks and follow recommendations of your digital media analyst. Thank you for allowing us to take part in your care. <Liyah Fabian - Last Filed: 04/14/17 09:54> Provider - Provider Date of Admission: 04/12/17 17:55 Attending physician: Liyah Fabian MD Hospital Course - Lab Results Lab Results: Most Recent Lab Values WBC 8.3 10^3/ul (4.5-11.0) D 04/13/17 07:00 RBC 4.19 10^6/uL (3.5-6.1) 04/13/17 07:00 Hgb 9.9 gm/dL (12.0-16.0) L 04/13/17 07:00 Hct 30.3 % (36.0-48.0) L 04/13/17 07:00 MCV 72.3 fL (80.0-105.0) L 04/13/17 07:00 MCH 23.6 pg (25.0-35.0) L 04/13/17 07:00 MCHC 32.7 g/dl (31.0-37.0) 04/13/17 07:00 RDW 16.1 % (11.5-14.5) H 04/13/17 07:00 Plt Count 225 10^3/uL (120.0-450.0) 04/13/17 07:00 MPV 9.3 fl (7.0-11.0) 04/13/17 07:00 Gran % 68.9 % (50.0-68.0) H 04/13/17 07:00 Lymph % (Auto) 25.4 % (22.0-35.0) 04/13/17 07:00 Grainger % (Auto) 4.5 % (1.0-6.0) 04/13/17 07:00 Eos % (Auto) 1.0 % (1.5-5.0) L 04/13/17 07:00 Baso % (Auto) 0.2 % (0.0-3.0) 04/13/17 07:00 Gran # 5.71 (1.4-6.5) 04/13/17 07:00 Lymph # 2.1 (1.2-3.4) 04/13/17 07:00 Grainger # 0.4 (0.1-0.6) 04/13/17 07:00 Eos # 0.1 (0.0-0.7) 04/13/17 07:00 Baso # 0.02 K/mm3 (0.0-2.0) 04/13/17 07:00 ESR 5 mm/hr (0.0-20.0) 04/13/17 07:00 Retic Count 0.93 % (0.5-1.5) 04/12/17 07:45 Sodium 141 mmol/L (132-148) 04/13/17 07:00 Potassium 3.4 mmol/L (3.6-5.0) L 04/13/17 07:00 Chloride 112 mmol/L (95-110) H 04/13/17 07:00 Carbon Dioxide 17 mmol/L (21-33) L 04/13/17 07:00 Anion Gap 15 (10-20) 04/13/17 07:00 BUN 11 mg/dL (7-21) 04/13/17 07:00 Creatinine 0.7 mg/dL (0.5-1.4) 04/13/17 07:00 Est GFR ( Amer) > 60 04/13/17 07:00 Est GFR (Non-Af Amer) > 60 04/13/17 07:00 Random Glucose 63 mg/dL (70-110) L 04/13/17 07:00 Calcium 8.2 mg/dL (8.4-10.5) L 04/13/17 07:00 Phosphorus 2.8 mg/dL (2.5-4.5) 04/13/17 07:00 Magnesium 1.6 mg/dL (1.7-2.2) L 04/13/17 07:00 Total Bilirubin 0.4 mg/dL (0.2-1.3) 04/13/17 07:00 AST 115 U/L (15-39) H 04/13/17 07:00 ALT 210 U/L (7-56) H 04/13/17 07:00 Alkaline Phosphatase 99 U/L (38-133) 04/13/17 07:00 Troponin I < 0.01 ng/mL 04/12/17 10:30 C-React Prot High Sens > 15.00 mg/L (1.00-3.00) H 04/13/17 07:00 Total Protein 5.9 g/dL (5.8-8.3) 04/13/17 07:00 Albumin 3.3 g/dL (3.0-4.8) 04/13/17 07:00 Globulin 2.6 gm/dL 04/13/17 07:00 Albumin/Globulin Ratio 1.3 (1.1-1.8) 04/13/17 07:00 Lipase 115 U/L (23-300) 04/12/17 01:00 TSH 3rd Generation 1.0 MIU/ml (0.46-4.68) 04/12/17 01:00 Urine Color Straw (YELLOW) 04/12/17 04:00 Urine Appearance Sl cloudy (CLEAR) 04/12/17 04:00 Urine pH 6.0 (4.7-8.0) 04/12/17 04:00 Ur Specific [place] 1.010 (1.005-1.035) 04/12/17 04:00 Urine Protein Negative mg/dL (<30 mg/dL) 04/12/17 04:00 Urine Glucose (UA) Negative mg/dL (NEGATIVE) 04/12/17 04:00 Urine Ketones Trace mg/dL (NEGATIVE) H 04/12/17 04:00 Urine Blood Negative (NEGATIVE) 04/12/17 04:00 Urine Nitrate Negative (NEGATIVE) 04/12/17 04:00 Urine Bilirubin Negative (NEGATIVE) 04/12/17 04:00 Urine Urobilinogen 0.2 E.U./dL (<1 E.U./dL) 04/12/17 04:00 Ur Leukocyte Esterase Trace Hannah/uL (NEGATIVE) H 04/12/17 04:00 Urine RBC Negative /hpf (0-2) 04/12/17 04:00 Urine WBC 0 - 2 /hpf (0-6) 04/12/17 04:00 Ur Epithelial Cells 3 - 4 /hpf (0-5) 04/12/17 04:00 Urine Bacteria Small (NEG) 04/12/17 04:00 Urine HCG, Qual Negative (NEGATIVE) 04/12/17 04:00 Urine Opiates Screen Positive (NEGATIVE) H 04/12/17 12:40 Urine Methadone Screen Negative (NEGATIVE) 04/12/17 12:40 Acetaminophen < 10.0 ug/ml (10.0-20.0) L 04/12/17 10:30 Ur Barbiturates Screen Negative (NEGATIVE) 04/12/17 12:40 Ur Phencyclidine Scrn Negative (NEGATIVE) 04/12/17 12:40 Ur Amphetamines Screen Negative (NEGATIVE) 04/12/17 12:40 U Benzodiazepines Scrn Negative (NEGATIVE) 04/12/17 12:40 U Oth Cocaine Metabols Negative (NEGATIVE) 04/12/17 12:40 U Cannabinoids Screen Negative (NEGATIVE) 04/12/17 12:40 Hepatitis A IgM Ab Negative (NEGATIVE) 04/12/17 10:30 Hep Bs Antigen Negative (NEGATIVE) 04/12/17 10:30 Hep B Core IgM Ab Negative (NEGATIVE) 04/12/17 10:30 Hepatitis C Antibody Negative (NEGATIVE) 04/12/17 10:30 Attending/Attestation - Attestation I have personally seen and examined this patient.: Yes I have fully participated in the care of the patient.: Yes I have reviewed all pertinent clinical information, including history, physical exam and plan: Yes Notes (Text): I have seen and examined patient at bedside. Agree with the note above with the following additions/ exceptions: This is 27 year old female with history of PUD (not compliant with meds), dermoid cyst, sickle cell train, depression and anxiety disorder who had multiple ED visits/ admissions for recurrent abdominal pain who got admitted for evaluation of acute epigastric pain, nausea and vomiting probably related to PUD vs gastroenteritis vs narcotic abuse. All her symptoms have resolved today. She is eating crackers and drinking juice when we visited her. She appears very comfortable. Patient changed her pmd as she was unsatisfied with the care. Currently she follows up with PMD in [place]. Advised patient to follow up with outpatient digital media analyst. Also advised patient to have repeat BMP in [address] Liyah Fabian
== END 2017-04-13 17:24 | disposition home or self-care (01) | DRG 384 ==
LOC: ED 00:23 → ERH 04:31 → 3RSO 05:43 → OBSVTOIN 17:55 → 3RSO 04-13 10:24
PROVIDERS: ADMIT Internal Medicine; ATTEND Hospitalist
DX: K27.9 Peptic ulcer, site unspecified, unspecified as acute or chronic, without hemorrhage or perforation (principal); K52.9 Noninfective gastroenteritis and colitis, unspecified; D27.9 Benign neoplasm of unspecified ovary; D57.3 Sickle-cell trait; F41.9 Anxiety disorder, unspecified; N73.9 Female pelvic inflammatory disease, unspecified; Z91.14 Patient's other noncompliance with medication regimen

== ENCOUNTER 2017-07-17 02:30 | Inpatient (IN) | payer BC ==
[2017-07-17 02:30] VITALS: BMI 18.4
[2017-07-17] MEDS ORDERED: Sodium Chloride 0.9% 1,000 ML IV STA ×2 (02:57→05:48)
[2017-07-17] MEDS ORDERED: HYDROmorphone 2 mg/ml ISec IVP STA ×2 (02:58→03:54)
--- NOTE | 2017-07-17 03:01 | ED PDOC ---
Arrival/HPI - General Chief Complaint: Abdominal Pain Time Seen by Provider: 07/17/17 02:46 Historian: Patient - History of Present Illness Narrative History of Present Illness (Text): 07/17/17 03:54 A 27 year old female, whose past medical history includes peptic ulcer disease, sickle cell trait, dermoid cyst rupture, , depression, and anxiety, presents to the emergency department complaining of abdominal pain. Patient notes experiencing nausea and vomiting, but denies of any diarrhea or any other complaints. Symptom Onset: Gradual Symptom Course: Unchanged Activities at Onset: Rest, Light Past Medical History - Provider Review Nursing Documentation Reviewed: Yes - Infectious Disease Hx of Infectious Diseases: None - Tetanus Immunization Tetanus Immunization: Unknown - Cardiac Hx Cardiac Disorders: No - Pulmonary Hx Respiratory Disorders: No - Neurological Hx Neurological Disorder: No - HEENT Hx HEENT Disorder: No - Renal Hx Renal Disorder: No - Endocrine/Metabolic Hx Endocrine Disorders: No - Hematological/Oncological Hx Blood Disorders: Yes - Integumentary Hx Dermatological Disorder: No - Musculoskeletal/Rheumatological Hx Musculoskeletal Disorders: No Hx Falls: No - Gastrointestinal Hx Gastrointestinal Disorders: Yes Other/Comment: ABD PAIN, ULCER - Genitourinary/Gynecological Hx Genitourinary Disorders: Yes Other/Comment: VAGINAL BLEEDING - Psychiatric Hx Anxiety: Yes Hx Depression: Yes Hx Substance Use: No - Surgical History Hx Section: Yes - Anesthesia Hx Anesthesia: Yes Hx Anesthesia Reactions: No Hx Malignant Hyperthermia: No Family/Social History - Physician Review Nursing Documentation Reviewed: Yes Family/Social History: No Known Family HX Smoking Status: Never Smoked Hx Alcohol Use: No Hx Substance Use: No Allergies/Home Meds Allergies/Adverse Reactions: Allergies No Known Allergies Allergy (Verified 07/17/17 02:38) Home Medications: Home Meds Medication Instructions Recorded Confirmed Neomycin/Polymyxin B for Irr 1 ml IR BID 07/17/17 07/17/17 [Neomycin/Polymyxin B] Nitrofurantoin Monohyd/M-Cryst 1 cap PO BID 07/17/17 07/17/17 [Nitrofurantoin Monohydrate/Macrocrystals] Terconazole [Terazol 7] 45 gm VG BID 07/17/17 07/17/17 Review of Systems - Physician Review All systems were reviewed & negative as marked: Yes - Review of Systems Constitutional: absent: Fevers, Night Sweats Respiratory: absent: SOB Cardiovascular: absent: Chest Pain Gastrointestinal: Abdominal Pain, Nausea, Vomiting. absent: Diarrhea Physical Exam Vital Signs Reviewed: Yes Vital Signs Temp Pulse Resp BP Pulse Ox 07/17/17 06:20 66 16 96 07/17/17 04:30 74 16 103/70 100 07/17/17 02:41 98.1 F 77 20 131/79 98 Temperature: Afebrile Blood Pressure: Normal Pulse: Regular Respiratory Rate: Normal Appearance: Positive for: Well-Appearing Pain Distress: None Mental Status: Positive for: Alert and Oriented X 3 - Systems Exam Head: Present: Atraumatic, Normocephalic Pupils: Present: PERRL Extroacular Muscles: Present: EOMI Conjunctiva: Present: Normal Mouth: Present: Moist Mucous Membranes Neck: Present: Normal Range of Motion Respiratory/Chest: Present: Clear to Auscultation, Good Air Exchange. No: Respiratory Distress, Accessory Muscle Use Cardiovascular: Present: Regular Rate and Rhythm, Normal S1, S2. No: Murmurs Abdomen: Present: Normal Bowel Sounds. No: Tenderness, Distention, Peritoneal Signs Back: Present: Normal Inspection Upper Extremity: Present: Normal Inspection. No: Cyanosis, Edema Lower Extremity: Present: Normal Inspection. No: Edema Neurological: Present: GCS=15, CN II-XII Intact, Speech Normal Skin: Present: Warm, Dry, Normal Color. No: Rashes Psychiatric: Present: Alert, Oriented x 3, Normal Insight, Normal Concentration Medical Decision Making ED Course and Treatment: 07/17/17 03:00 Impression: 27 year old female with abdominal pain, nausea, and vomiting. Normal physical exam. Plan: -- Abd/Pelvis CT -- Blood Gas -- Labs -- Dilaudid -- Zofran -- IV Fluids -- Urinalysis -- Reassess and disposition Prior Visits: Notes and results from previous visits were reviewed. Patient was last seen in the emergency department on 04/12/2017 for diffused abdominal pain. Patient was admitted. Progress Notes: 07/17/2017 05:35 Abd/Pelvis CT FINDINGS: Lower thorax: No acute findings. ABDOMEN: Liver: Periportal edema again noted. Gallbladder and bile ducts: Unremarkable. No calcified stones. No ductal dilation. Pancreas: Unremarkable. No mass. No ductal dilation. Spleen: Unremarkable. No splenomegaly. Adrenals: Unremarkable. No mass. Kidneys and ureters: Unremarkable. No solid mass. No hydronephrosis. Stomach and bowel: Unremarkable. No dilatation of small or large bowel. No mucosal thickening. Appendix: No findings to suggest acute appendicitis. PELVIS: Bladder: Unremarkable. No mass. Reproductive: Bilateral ovarian cysts/follicles, the right measures 2 cm, left 2.5 cm. Well defined mass in cul-de-sac measures 3.7 x 4.1 x 2.8 cm consisting of predominantly fat, small amount of soft tissue in several coarse calcifications. ABDOMEN and PELVIS: Intraperitoneal space: Small amount of free fluid in cul-de-sac. Bones/joints: No acute fracture. Soft tissues: Unremarkable. Vasculature: Unremarkable. No abdominal aortic aneurysm. Lymph nodes: No enlarged lymph nodes. IMPRESSION: 1. Redemonstration of periportal edema. 2. No acute inflammation or intestinal obstruction. 3. Stable pelvic dermoid tumor. Dictated and Authenticated by: Natividad Mccann MD case d/w dr acevedo accepts case 07/21/17 01:15 - Lab Interpretations Lab Results: 07/17/17 02:55 07/17/17 02:55 Lab Results 07/17/17 12:00: Hepatitis A IgM Ab Negative, Hep Bs Antigen Negative, Hep B Core IgM Ab Negative, Hepatitis C Antibody Negative 07/17/17 05:00: Urine Color Yellow, Urine Appearance Clear, Urine pH 6.0, Ur Specific [place] 1.020, Urine Protein Negative, Urine Glucose (UA) Negative, Urine Ketones Negative, Urine Blood Negative, Urine Nitrate Negative, Urine Bilirubin Negative, Urine Urobilinogen 0.2, Ur Leukocyte Esterase Negative, Urine HCG, Qual Negative 07/17/17 02:55: Sodium 141, Chloride 106, Potassium 3.7, Carbon Dioxide 24, Anion Gap 15, BUN 11, Creatinine 0.7, Est GFR ( Amer) > 60, Est GFR (Non- Af Amer) > 60, Random Glucose 82, Calcium 9.0, Total Bilirubin 0.3, AST 28, ALT 24, Alkaline Phosphatase 60, Total Protein 7.6, Albumin 4.5, Globulin 3.1, Albumin/Globulin Ratio 1.5, Lipase 76 07/17/17 02:55: pO2 54, VBG pH 7.34, VBG pCO2 48.0, VBG HCO3 25.9, VBG Total CO2 27.4, VBG O2 Sat (Calc) 90.5 H, VBG Base Excess -0.4 L, VBG Potassium 4.0, Sodium 139.0, Chloride 107.0, Glucose 82, Lactate 1.2, FiO2 21.0, Venous Blood Potassium 4.0 07/17/17 02:55: PT 11.4, INR 1.06, APTT 27.8 07/17/17 02:55: WBC 8.9, RBC 4.82, Hgb 11.4 L, Hct 34.4 L, MCV 71.4 L, MCH 23.7 L, MCHC 33.1, RDW 16.2 H, Plt Count 248, MPV 9.1, Gran % 59.7, Lymph % (Auto) 34.2, Carver % (Auto) 4.5, Eos % (Auto) 1.5, Baso % (Auto) 0.1, Gran # 5.31, Lymph # 3.0, Carver # 0.4, Eos # 0.1, Baso # 0.01 I have reviewed the lab results: Yes - RAD Interpretation Radiology Orders: 07/17/17 03:41 ABD & PELVIS IV CONTRAST ONLY [CT] Stat 07/17/17 11:43 MRCP AND ABD W/WO CONTRAST [MRI] Urgent - Medication Orders Current Medication Orders: Acetaminophen (Tylenol 325mg Tab) 650 mg PO Q4H PRN PRN Reason: Pain, Mild (1-3) Last Admin: 07/19/17 19:27 Dose: 650 mg Re-Assess: MAR Pain/Vitals Document 07/19/17 20:27 BN (Rec: 07/20/17 01:30 [place] [id number]) Pain Reassessment Is This A Pain ReAssessment? Yes Sleep Is patient sleeping during reassessment? No Presence of Pain Presence of Pain No Sodium Chloride (Sodium Chloride 0.9%) 1,000 mls @ 100 mls/hr IV .Q10H AJIT Last Admin: 07/20/17 05:55 Dose: Morphine Sulfate (Morphine) 2 mg IVP Q6H PRN PRN Reason: Pain, moderate (4-7) Ondansetron HCl (Zofran Inj) 4 mg IVP Q6H PRN PRN Reason: Nausea/Vomiting Last Admin: 07/17/17 06:36 Dose: 4 mg Pantoprazole Sodium (Protonix Inj) 40 mg IVP DAILY [facility] Last Admin: 07/20/17 10:23 Dose: 40 mg Discontinued Medications Fentanyl (Fentanyl) Confirm Administered Dose 100 mcg .ROUTE .STK-MED ONE Stop: 07/19/17 08:51 Gadodiamide (Omniscan No Safepak) Confirm Administered Dose 4,305 mg IV .STK- MED ONE Stop: 07/17/17 17:13 Hydromorphone HCl (Dilaudid) 2 mg IVP STAT STA Stop: 07/17/17 02:59 Last Admin: 07/17/17 03:14 Dose: 2 mg Hydromorphone HCl (Dilaudid) 2 mg IVP STAT STA Stop: 07/17/17 03:55 Last Admin: 07/17/17 04:09 Dose: 2 mg Sodium Chloride (Sodium Chloride 0.9%) 1,000 mls @ 100 mls/hr IV .Q10H STA Stop: 07/17/17 12:56 Last Admin: 07/17/17 03:13 Dose: 100 mls/hr Famotidine (Pepcid 20mg/50ml Premix) 20 mg in 50 mls @ 100 mls/hr IVPB STAT STA Stop: 07/17/17 03:42 Last Admin: 07/17/17 03:33 Dose: 100 mls/hr Sodium Chloride (Sodium Chloride 0.9%) 1,000 mls @ 100 mls/hr IV .Q10H STA Stop: 07/17/17 15:47 Last Admin: 07/17/17 06:36 Dose: 100 mls/hr Lactated Ringer's (Lactated Ringer's) 1,000 mls @ 75 mls/hr IV .[id number] [facility] Stop: 07/19/17 11:13 Iohexol (Omnipaque 350 100 Ml) Confirm Administered Dose 350 mg .ROUTE .STK-MED ONE Stop: 07/17/17 04:24 Lidocaine (Lidocaine) Confirm Administered Dose 100 mg .ROUTE .STK-MED ONE Stop: 07/19/17 08:51 Metoclopramide HCl (Reglan) 10 mg IVP ONCE ONE Stop: 07/17/17 03:55 Last Admin: 07/17/17 04:09 Dose: 10 mg Ondansetron HCl (Zofran Inj) 4 mg IVP STAT STA Stop: 07/17/17 02:58 Last Admin: 07/17/17 03:13 Dose: 4 mg Propofol (Diprivan) Confirm Administered Dose 600 mg .ROUTE .STK-MED ONE Stop: 07/19/17 08:51 - Scribe Statement The provider has reviewed the documentation as recorded by the Miriamibmango Castro Provider Scribe Attestation: All medical record entries made by the Scribmango were at my direction and personally dictated by me. I have reviewed the chart and agree that the record accurately reflects my personal performance of the history, physical exam, medical decision making, and the department course for this patient. I have also personally directed, reviewed, and agree with the discharge instructions and disposition. Disposition/Present on Arrival - Present on Arrival Any Indicators Present on Arrival: No History of DVT/PE: No History of Uncontrolled Diabetes: No Urinary Catheter: No History of Decub. Ulcer: No History Surgical Site Infection Following: None - Disposition Have Diagnosis and Disposition been Completed?: Yes Diagnosis: Intractable abdominal pain Disposition: HOSPITALIZED Disposition Time: 06:00 Condition: GOOD
[2017-07-17] MEDS ORDERED: Famotidine 20mg/50ml 20 MG/50 ML BAG IVPB STA (03:13)
[2017-07-17 03:17] LABS: BASO # 0.01 K/mm3 (0.0-2.0); BASO % 0.1 % (0.0-3.0); EOS # 0.1 (0.0-0.7); EOS % 1.5 % (1.5-5.0); GRAN # 5.31 (1.4-6.5); GRAN % 59.7 % (50.0-68.0); HEMATOCRIT 34.4 % (36.0-48.0); LYMPH % 34.2 % (22.0-35.0); MEAN CORPUSCULAR HEMOGLOBIN 23.7 pg (25.0-35.0); MEAN CORPUSCULAR HGB CONC 33.1 g/dl (31.0-37.0); MEAN PLATELET VOLUME 9.1 fl (7.0-11.0); MONO # 0.4 (0.1-0.6); MONO % 4.5 % (1.0-6.0); RED CELL DISTRIBUTION WIDTH 16.2 % (11.5-14.5); WHITE BLOOD COUNT 8.9 10^3/ul (4.5-11.0)
[2017-07-17 03:19] LABS: MEAN CELL VOLUME 71.4 fl (80.0-105.0)
[2017-07-17 03:40] LABS: ALB/GLOB RATIO 1.5 (1.1-1.8); ALKALINE PHOSPHATASE 60 U/L (38-133); ALT/SGPT 24 U/L (7-56); AST/SGOT 28 U/L (15-39); BILIRUBIN,TOTAL 0.3 mg/dL (0.2-1.3); BLOOD UREA NITROGEN 11 mg/dL (7-21); CARBON DIOXIDE 24 mmol/L (21-33); CHLORIDE 106 mmol/L (98-107); GFR AFRICAN-AMERICAN > 60; GLUCOSE,RANDOM 82 mg/dL (70-110); LIPASE 76 U/L (23-300); POTASSIUM 3.7 mmol/L (3.6-5.0); SODIUM 141 mmol/L (132-148); TOTAL PROTEIN 7.6 g/dL (5.8-8.3)
[2017-07-17 03:41] LABS: INR 1.06 (0.93-1.08); PARTIAL THROMBOPLASTIN TIME 27.8 Seconds (23.7-30.8)
[2017-07-17 03:57] LABS: VENOUS BLOOD GAS BASE EXCESS -0.4 mmol/L (0.0-2.0); VENOUS BLOOD PH 7.34 (7.32-7.43)
[2017-07-17] MEDS ORDERED: Iohexol 350 MG/100 ML VIAL ONE (04:23)
[2017-07-17 05:26] LABS: URINE BILIRUBIN NEGATIVE (NEGATIVE); URINE BLOOD NEGATIVE (NEGATIVE); URINE GLUCOSE (UA) NEGATIVE (NEGATIVE); URINE KETONE NEGATIVE (NEGATIVE); URINE LEUKOCYTE ESTERASE NEGATIVE Leu/uL (NEGATIVE); URINE PROTEIN NEGATIVE mg/dL (<30 mg/dL); URINE UROBILINOGEN 0.2 E.U./dL (<1 E.U./dL)
[2017-07-17 05:27] LABS: URINE COLOR YELLOW (YELLOW)
[2017-07-17 05:28] LABS: URINE APPEARANCE CLEAR (CLEAR)
--- NOTE | 2017-07-17 05:36 | CT ---
EXAM: CT Abdomen and Pelvis With Intravenous Contrast EXAM DATE/TIME: 07/17/2017 3:41 AM CLINICAL HISTORY: 27 years old, female; Pain; Abdominal pain; Additional info: Abd pain TECHNIQUE: Axial computed tomography images of the abdomen and pelvis with intravenous contrast. All CT scans at this facility use one or more dose reduction techniques, viz.: automated exposure control; ma/kV adjustment per patient size (including targeted exams where dose is matched to indication; i.e. head); or iterative reconstruction technique. Coronal and sagittal reformatted images were created and reviewed. CONTRAST: 100 mL of [id number] administered intravenously. COMPARISON: CT - ABD PELVIS W/O PO OR IV CONT 04/12/2017 2:04:37 AM FINDINGS: Lower thorax: No acute findings. ABDOMEN: Liver: Periportal edema again noted. Gallbladder and bile ducts: Unremarkable. No calcified stones. No ductal dilation. Pancreas: Unremarkable. No mass. No ductal dilation. Spleen: Unremarkable. No splenomegaly. Adrenals: Unremarkable. No mass. Kidneys and ureters: Unremarkable. No solid mass. No hydronephrosis. Stomach and bowel: Unremarkable. No dilatation of small or large bowel. No mucosal thickening. Appendix: No findings to suggest acute appendicitis. PELVIS: Bladder: Unremarkable. No mass. Reproductive: Bilateral ovarian cysts/follicles, the right measures 2 cm, left 2.5 cm. Well defined mass in cul-de-sac measures 3.7 x 4.1 x 2.8 cm consisting of predominantly fat, small amount of soft tissue in several coarse calcifications. ABDOMEN and PELVIS: Intraperitoneal space: Small amount of free fluid in cul-de-sac. Bones/joints: No acute fracture. Soft tissues: Unremarkable. Vasculature: Unremarkable. No abdominal aortic aneurysm. Lymph nodes: No enlarged lymph nodes. IMPRESSION: 1. Redemonstration of periportal edema. 2. No acute inflammation or intestinal obstruction. 3. Stable pelvic dermoid tumor.
[2017-07-17] MEDS ORDERED: Morphine 2 mg/ml ISec IVP PRN ×2 (06:34→14:43)
[2017-07-17] MEDS ORDERED: Gadodiamide 287 MG/ML VIAL (15ML) IV ONE (17:12)
--- NOTE | 2017-07-18 00:26 | HP ---
HISTORY OF PRESENT ILLNESS: This 27-year-old female was examined at her bedside. Her case was reviewed with herself, nursing and co-consultants. The patient presented to the [facility] ER complaining of abdominal pain with nausea, vomiting, but no fever or chills. The patient has a past medical history of gastric ulcers, sickle cell trait and a history of a pelvic dermoid cyst rupture in the past. She is also status post one natural vaginal delivery, a and a history of anxiety and depression. The patient follows with her PMD, Dr. Mayfield as well as a loan interviewer in [place]. The patient states that on admission her pain was severe requiring parenteral analgesics and at present, she is n.p.o. receiving IV fluid. REVIEW OF SYSTEMS: On head review, no headache or seizures. On eye review, no change in visual acuity. On ear review, no hearing loss. On throat review, no swallowing difficulty. On neck review, no stiffness. Cardiac review: No chest pain, no hypertension. Pulmonary: No cough. No hemoptysis. GI: As per HPI. Urinalysis: History of urinary tract and vaginitis in the past. Psychological: Chronic anxiety and depression. Endocrinological: No knowledge of hyperlipidemia or diabetes. Gynecological: Status post and natural vaginal delivery and a ruptured dermoid cyst in the past. Neurological: No knowledge of TIA or stroke. FAMILY HISTORY: One sister who was older with a history of ovarian cancer. SOCIAL HISTORY: She is a nonsmoker, nondrinker, non IV drug misuser. ALLERGIES: DENIES ANY ALLERGIES TO MEDICATION. PHYSICAL EXAMINATION VITAL SIGNS: Temperature 98, respirations 16, pulse 66 and blood pressure 103/70 with a pulse ox of 100% on room air. HEENT: Head is normocephalic and atraumatic. Eyes: No icterus. Ears: Clear. Throat: Non-injected. NECK: Supple.. HEART: Regular. S1 and S2. No pathological rubs, murmurs or gallops. LUNGS: Clear to auscultation and percussion. ABDOMEN: Soft and nontender. There is no palpable organomegaly. No rebound. No guarding. Mid epigastric tenderness. EXTREMITIES: No clubbing, no cyanosis and no edema. SKIN: Without rash. NEUROLOGICAL: Intact. PSYCHOLOGICAL: Alert and oriented x3. VASCULAR: Legs are warm to touch. LABORATORY DATA: White count 8900, hemoglobin 11.4, hematocrit 34.4 and platelets are 248,000. PT/INR 1.06. PTT 27.8. Sodium is 141, potassium 3.7, chloride 106, bicarbonate 24, BUN 11, creatinine 0.7 and random blood sugar is 82. All liver function testing is normal including bilirubin 0.3, AST 28, ALT 24 and alk phos 60. Her lipase was normal at 76. Urinalysis was unremarkable. IMPRESSION: This is a 27-year-old female with abdominal pain, admitted with nausea and vomiting, history of ruptured dermoid cyst in the past as well as history of gastric ulcer. Of note, an abdominopelvic CT performed in the [facility] Emergency Room earlier this morning with IV contrast only and compared with previous CT demonstrated mild periportal edema, no acute inflammation or intestinal obstruction and a stable pelvic dermoid cyst. PLAN: The plan at present is to admit this patient. She is awaiting consultation with Dr. Jennifer Choi and has an MRCP of her abdomen ordered without and with IV contrast. She is ordered to receive Protonix 40 mg IV daily, 0.9 saline at 100 mL per hour, Zofran 4 mg IV q. 6 hours p.r.n. nausea and vomiting and morphine 2 mg IV q. 6 hours p.r.n. severe pain. She has been cleared for a clear liquid diet. She will have a hepatitis panel ordered. She will require further testings as recommended by Dr. Jennifer Choi from GI and as discussed with the patient, we will need close outpatient monitoring by her loan interviewer regarding her history of dermoid cyst and family history of ovarian cancer. The patient said she is aware and agreement with these recommendations. Betina Richter MD MTDD
[2017-07-18 10:48] LABS: ALB/GLOB RATIO 1.4 (1.1-1.8); ALKALINE PHOSPHATASE 48 U/L (38-133); ALT/SGPT 28 U/L (7-56); AST/SGOT 30 U/L (15-39); BILIRUBIN,TOTAL 0.4 mg/dL (0.2-1.3); BLOOD UREA NITROGEN 7 mg/dL (7-21); CARBON DIOXIDE 25 mmol/L (21-33); CHLORIDE 107 mmol/L (98-107); GFR AFRICAN-AMERICAN > 60; GLUCOSE,RANDOM 71 mg/dL (70-110); POTASSIUM 4.1 mmol/L (3.6-5.0); SODIUM 142 mmol/L (132-148); TOTAL PROTEIN 6.7 g/dL (5.8-8.3)
--- NOTE | 2017-07-19 00:18 | PN ---
DATE: 07/18/2017 SUBJECTIVE: This 27-year-old female was examined at her bedside. Her case was reviewed in detail with herself, her nurse and senior billing consultant Dr. Choi from gastroenterology. The patient denies any fever, chills, shortness of breath, has had no further vomiting or diarrhea. At present, she remains afebrile and is tolerating IV Protonix. Dr. Choi has plans to perform an endoscopy and to order an irritable bowel serology workup and he is ordering an MRCP on this patient because of perihepatic, periportal edema on initial CT of the abdomen. PHYSICAL EXAMINATION VITAL SIGNS: At present vital signs show temperature 98.6, respirations 20, pulse 86, blood pressure 113/67 with a pulse ox of 99% on room air. HEENT: Head is normocephalic and atraumatic. Eyes: No icterus. Ears: Clear. Throat is non-injected. NECK: Supple. HEART: Regular. S1 and S2. No pathological rubs, murmurs, or gallops. LUNGS: Clear to auscultation. ABDOMEN: Soft and nontender. There is no rebound, there is no guarding, there is mild midepigastric tenderness on palpation. EXTREMITIES: No clubbing, no cyanosis, no edema. SKIN: Without rash. NEUROLOGICAL: Intact. PSYCHOLOGICAL: Alert and oriented x3. VASCULAR: Legs warm to touch. LABORATORY DATA: White count 8,900, hemoglobin 11.4, hematocrit 34.4, platelets 248,000. PT/INR 1.06, sodium 142, K 4.1, chloride 107, bicarbonate 25, BUN 7, creatinine 0.7. Random blood sugar 71. All liver function testing is normal including bilirubin 0.4, AST 30, ALT 28, and alkaline phosphatase 48, lipase normal 76. Urinalysis unremarkable. Urine negative. IMPRESSION: A 27-year-old female admitted with abdominal pain, periportal edema, rule out irritable bowel syndrome, rule out gastric ulcer, history of anxiety, depression, sickle cell anemia trait and history of dermoid pelvic cyst. PLAN: Plan at present is to continue clear liquid diet only. She is ordered to have an MRCP of abdomen without and with contrast as per Dr Choi from GI. She continues on 0.9 saline at 100 mL per hour, Protonix 40 mg IV daily, morphine sulfate 2 mg IV q. 6 hours p.r.n. severe pain and Zofran 4 mg IV q. 6 hours p.r.n. for nausea and vomiting. The patient has been instructed to ambulate with assistance. She is ordered to have a hepatitis panel. She is ordered to have an irritable bowel differentiation panel serologically and additional diagnostic testing including endoscopy. Findings will be discussed with Dr. Choi from GI. The patient has been re-advised to follow up with gynecology regarding the monitoring of her dermoid cyst and to discuss options regarding treatment of this process and the patient is aware and in agreement with this. All of the above have been discussed in detail with the patient at length at her bedside and all questions were answered. Betina Richter MD MTDD
[2017-07-19] MEDS ORDERED: Propofol 10 mg/ml Inj (20 ML) ONE (08:50)
[2017-07-19] MEDS ORDERED: Lactated Ringer's 1,000 ML IV SCH (09:12)
[2017-07-19] MEDS: Sodium Chloride 0.9% 1,000 ML IV SCH (12:45)
--- NOTE | 2017-07-19 13:32 | PN ---
DATE: 07/19/2017 SUBJECTIVE: This 27-year-old female was examined at her bedside. Her case was reviewed in detail with herself, GI, and her nurse Everett Cifuentes, Registered Nurse. The patient is status post endoscopy earlier this morning with Dr. Jennifer Hernandez which revealed chronic gastritis and chronic duodenitis. He has recommended continue treatment with IV Protonix at present and the patient remains n.p.o. while awaiting abdominal ultrasound as per GI recommendation. The patient denies any further vomiting but states she feels nauseous on clear liquid diet and remains highly anxious. There have been no reports of fever or chills and no hematemesis or melena. PHYSICAL EXAMINATION: VITAL SIGNS: Temperature was 98.4, respirations 16, pulse 55, and blood pressure 104/66 with pulse ox of 100% room air. HEENT: Head is normocephalic, atraumatic. Eyes: No icterus. Ears: Clear. Throat: Noninjected. NECK: Supple. HEART: Regular S1 and S2. LUNGS: Clear. ABDOMEN: Soft. EXTREMITIES: No edema. SKIN: Without rashes. NEUROLOGIC: Intact. PSYCHOLOGIC: Chronic anxiety. VASCULAR: Legs warm to touch. LABORATORY DATA: White count 8,900, hemoglobin 11.4, hematocrit 34.4, platelets 248,000. PT/INR 1.06, PTT 27.8. Sodium 142, potassium 4.1, chloride 107, bicarbonate 25, BUN 7, creatinine 0.7. Random blood sugar 171. All liver function testing was normal including bilirubin 0.4, AST 30, ALT 28, and alkaline phosphatase 48. Hepatitis A, B, C serology was negative. IMPRESSION: The patient is a 27-year-old female admitted with nausea, vomiting with history of abdominal pain in the past, now with gastritis and duodenitis on endoscopy and concerns of irritable bowel disease as well as periportal edema on her CT of abdomen and pelvis. PLAN: The plan is to await MRCP of abdomen without and with contrast as well as abdominal ultrasound. She continues on soft bland diet as ordered by GI. She is receiving Protonix 40 mg IV daily, 0.9 saline 100 mL per hour, Zofran 4 mg IV q 6 hours p.r.n. nausea and vomiting, morphine 2 mg IV q [address] Hernandez from GI for severe pain. The patient is ordered to be out of bed, ambulated with assistance and additional GI testings were outlined as ordered. Ultimate plan will be for discharge to home when medically cleared by GI for follow up with her primary care physician Dr. Acacia Mayfield regarding her multiple medical problems including anxiety and depression. Betina Richter MD /13:31:51< MTDD
--- NOTE | 2017-07-19 14:35 | MRI ---
PROCEDURE: MRI Abdomen without contrast with MRCP HISTORY: Abdominal pain COMPARISON: None available. TECHNIQUE: Multisequence, multiplanar MR images of the abdomen without gadolinium contrast enhancement. Patient could not tolerate any further scanning. Contrast was not administered FINDINGS: LIVER: Unremarkable. GALLBLADDER: Unremarkable. SPLEEN: Unremarkable. ADRENALS: Unremarkable. KIDNEYS: Unremarkable. PANCREAS: Unremarkable. AORTA: No aneurysm. ASCITES: None. PERITONEUM: Unremarkable. LYMPH NODES: Unremarkable. OTHER FINDINGS: None IMPRESSION: No acute findings.
[2017-07-20] MEDS: Sodium Chloride 0.9% 1,000 ML IV SCH ×2 (00:15→05:55)
--- NOTE | 2017-07-20 10:54 | US ---
PROCEDURE: Portal vein duplex ultrasound. CLINICAL HISTORY: deteriorating liver function. Evaluate for portal vein thrombosis. PHYSICIAN(S): Amaury Suárez M.D. FINDINGS: The extrahepatic portal vein is patent with hepatopetal flow. No sonographic evidence for thrombus or obstruction is seen. The 3 hepatic veins are visualized centrally and patent. The hepatic artery is patent. The liver parenchyma is normal in echotexture. The spleen is normal in size. No fluid is noted in the upper abdomen. IMPRESSION: 1. Patent portal vein with hepatopetal flow.
--- NOTE | 2017-07-20 11:25 | CP.PCM.PN ---
<Lyla Moe - Last Filed: 07/20/17 11:25> Subjective - Date & Time of Evaluation Date of Evaluation: 07/20/17 Time of Evaluation: 10:00 - Subjective Subjective: Seen and examined at the bedside this morning, returned from abdominal Doppler. Patient status post endoscopy yesterday for complaints of upper abdominal pain. Was found to have chronic gastritis with biopsy as well as chronic duodenitis. patient currently denies nausea, vomiting, abdominal pain is improved but still present. No acute distress. Denies any fever or chills. Last BM was prior to admission. No acute overnight events reported. Objective - Vital Signs/Intake and Output Vital Signs (last 24 hours): Temp Pulse Resp BP Pulse Ox 97.3 F L 75 20 106/100 H 97 07/20/17 08:27 07/20/17 08:27 07/20/17 08:27 07/20/17 08:27 07/20/17 08:27 Intake and Output: 07/20/17 07/20/17 06:59 18:59 Intake Total 540 Balance 540 - Medications Medications: Current Medications Acetaminophen (Tylenol 325mg Tab) 650 mg PO Q4H PRN PRN Reason: Pain, Mild (1-3) Last Admin: 07/19/17 19:27 Dose: 650 mg Sodium Chloride (Sodium Chloride 0.9%) 1,000 mls @ 100 mls/hr IV .Q10H [facility] Last Admin: 07/20/17 05:55 Dose: Not Given Morphine Sulfate (Morphine) 2 mg IVP Q6H PRN PRN Reason: Pain, moderate (4-7) Ondansetron HCl (Zofran Inj) 4 mg IVP Q6H PRN PRN Reason: Nausea/Vomiting Last Admin: 07/17/17 06:36 Dose: 4 mg Pantoprazole Sodium (Protonix Inj) 40 mg IVP DAILY AJIT Last Admin: 07/20/17 10:23 Dose: 40 mg - Labs Labs: 07/18/17 10:25 PT 11.4 Seconds (9.9-11.8) 07/17/17 02:55 INR 1.06 (0.93-1.08) 07/17/17 02:55 APTT 27.8 Seconds (23.7-30.8) 07/17/17 02:55 - Constitutional Appears: No Acute Distress - Head Exam Head Exam: NORMOCEPHALIC - Eye Exam Eye Exam: Normal appearance. absent: Scleral icterus - ENT Exam ENT Exam: Mucous Membranes Moist - Neck Exam Neck Exam: Normal Inspection - Respiratory Exam Respiratory Exam: Clear to Ausculation Bilateral, NORMAL BREATHING PATTERN. absent: Respiratory Distress - Cardiovascular Exam Cardiovascular Exam: +S1, +S2 - GI/Abdominal Exam GI & Abdominal Exam: Soft, Tenderness (midabdomen, no rebound guarding), Normal Bowel Sounds. absent: Distended, Guarding, Organomegaly, Rebound - Extremities Exam Extremities Exam: Normal Capillary Refill. absent: Calf Tenderness, Pedal Edema - Neurological Exam Neurological Exam: Alert, Awake, Oriented x3 - Skin Skin Exam: Dry, Warm Assessment and Plan - Assessment and Plan (Free Text) Assessment: Assessment: Abdominal pain status post EGD, chronic gastritis duodenitis status post biopsy Improved nausea/vomiting ? Irritable bowel disease Periportal edema on CT scan of abdomen and pelvis Status post abdominal Doppler to rule out any hepatic thrombosis, preliminary MRCP report reported questionable hepatic thrombus, final MRCP report is negative. Abdominal Doppler reported patent portal veins History of sickle cell trait Plan: Continue soft diet Continue PPI Follow-up EGD biopsies Follow-up IBD panel Review MRCP with radiology Reviewed abdominal Doppler Seen and discussed with Dr. Choi <Jennifer Choi V - Last Filed: 07/20/17 23:31> Objective - Vital Signs/Intake and Output Vital Signs (last 24 hours): Temp Pulse Resp BP Pulse Ox 98.3 F 81 18 101/66 94 L 07/20/17 16:00 07/20/17 16:00 07/20/17 16:00 07/20/17 16:00 07/20/17 16:00 Intake and Output: 07/20/17 07/21/17 18:59 06:59 Intake Total 840 960 Balance 840 960 - Medications Medications: Current Medications Acetaminophen (Tylenol 325mg Tab) 650 mg PO Q4H PRN PRN Reason: Pain, Mild (1-3) Last Admin: 07/19/17 19:27 Dose: 650 mg Sodium Chloride (Sodium Chloride 0.9%) 1,000 mls @ 100 mls/hr IV .Q10H AJIT Last Admin: 07/20/17 05:55 Dose: Not Given Morphine Sulfate (Morphine) 2 mg IVP Q6H PRN PRN Reason: Pain, moderate (4-7) Ondansetron HCl (Zofran Inj) 4 mg IVP Q6H PRN PRN Reason: Nausea/Vomiting Last Admin: 07/17/17 06:36 Dose: 4 mg Pantoprazole Sodium (Protonix Inj) 40 mg IVP DAILY AJIT Last Admin: 07/20/17 10:23 Dose: 40 mg - Labs Labs: 07/18/17 10:25 PT 11.4 Seconds (9.9-11.8) 07/17/17 02:55 INR 1.06 (0.93-1.08) 07/17/17 02:55 APTT 27.8 Seconds (23.7-30.8) 07/17/17 02:55 Attending/Attestation - Attestation Notes (Text): 07/20/17 23:30 p
--- NOTE | 2017-07-20 15:38 | PN ---
DATE: 07/20/2017 SUBJECTIVE: This 27-year-old female was examined at the bedside. Her case was reviewed with herself, nursing, and co-consultants. The patient is status post endoscopy that confirmed chronic gastritis and duodenitis and the patient is receiving parenteral Protonix with good results. She states she still feels nauseated after eating and is awaiting additional GI testings including Doppler studies of her hepatic veins to rule out venous vein thrombosis. PHYSICAL EXAMINATION: VITAL SIGNS: Temperature is 97.3, respirations 20, pulse 75, and blood pressure 106/60 with a pulse ox of 97% on room air. HEENT: Head is normocephalic, atraumatic. Eyes, no icterus. Ears, clear. Throat, non-injected. NECK: Supple. HEART: Regular S1 and S2. LUNGS: Clear. ABDOMEN: Soft. No rebound, no guarding. EXTREMITIES: No clubbing, no cyanosis, no edema. SKIN: Without rashes. NEUROLOGIC: Intact. PSYCHOLOGIC: Alert and oriented x3. VASCULAR: Legs warm to touch. LABORATORY DATA: White count 8900, hemoglobin 11.4, hematocrit 34.4, platelets 248,000. PT/INR 1.06, PTT 27.8. Sodium 142, potassium 4.1, chloride 107, bicarbonate 25, BUN 7, creatinine 0.7. Random blood sugar 71. Bilirubin 0.4, AST 30, ALT 28, and alkaline phosphatase 48. Hepatitis A, B, C is negative. Urinalysis was unremarkable. IMPRESSION: This is a 27-year-old female admitted with abdominal pain, nausea, vomiting, gastritis, duodenitis with periportal edema on CT of the abdomen. Now being followed by Dr. Jennifer Choi from , who has recommended Doppler studies of the hepatic portal system to rule out hepatic vein thrombosis. At present, the patient continues on Protonix 40 mg IV daily, 0.9 saline at 100 mL per hour, Zofran 4 mg IV q.6 hours p.r.n., nausea and vomiting, and morphine 2 mg IV q.6 hours p.r.n. pain. Her irritable bowel, differentiation panel is pending, I am awaiting further advisement regarding workup and medications from Dr. Jennifer Choi from . All of this was discussed in detail with the patient and nursing, and prognosis remains stable at present. Betina Richter MD ANIL
[2017-07-21] MEDS: Sodium Chloride 0.9% 1,000 ML IV SCH (07:19)
[2017-07-21 13:31] LABS: HEMATOCRIT 34.5 % (36.0-48.0)
[2017-07-21 13:40] LABS: BLOOD UREA NITROGEN 10 mg/dL (7-21); CALCIUM 9.2 mg/dL (8.4-10.5); CARBON DIOXIDE 25 mmol/L (21-33); CHLORIDE 104 mmol/L (98-107); GFR AFRICAN-AMERICAN > 60; GLUCOSE,RANDOM 84 mg/dL (70-110); POTASSIUM 4.4 mmol/L (3.6-5.0); SODIUM 140 mmol/L (132-148)
--- NOTE | 2017-07-21 14:47 | PN ---
DATE: 07/21/2017 SUBJECTIVE: This 27-year-old female was examined at her bedside. Her case was reviewed in detail with herself, Dr. Jennifer Choi from GI and her nurse. The patient states at 4 a.m. this morning she had severe abdominal pain that required the administration of parenteral morphine and caused her not to eat breakfast. The patient has been found to have gastritis and duodenitis on upper endoscopy. A venous Doppler of her hepatic vein failed to demonstrate any venous thrombosis and Dr. Choi now plans to proceed was an abdominal Doppler to rule out mesenteric ischemia. It is also his plan to have the patient referred for a second opinion with Dr. Harrington at [facility] in [facility] and this has been reviewed with patient at her bedside. Hopefully, she will be compliant with this recommendation once she is cleared by GI for discharge. PHYSICAL EXAMINATION: VITAL SIGNS: At present time, temperature is 98.5, respiration 20, pulse 81, and blood pressure 95/53 with the pulse ox of 99% on room air. HEENT: Head is normocephalic, atraumatic. Eyes, no icterus. Ears, clear. Throat, noninjected. NECK: Supple. HEART: Regular S1 and S2. LUNGS: Clear. ABDOMEN: Soft. EXTREMITIES: No edema. SKIN: Without rashes. NEUROLOGIC: Intact. PSYCHOLOGIC: Alert. VASCULAR: Legs warm to touch. LABORATORY DATA: White count 8900, hemoglobin 11.4, hematocrit 34.4, and platelets 248,000. Sodium 142, potassium 4.1, chloride 107, bicarbonate 25, BUN 7, and creatinine 0.7. Random blood sugar was 71. Hepatitis A, B, C serology was negative. IMPRESSION AND PLAN: The patient is a 27-year-old female with recurrent of abdominal pain, history of sickle cell trait, gastritis, duodenitis, and she is continuing to complain of additional abdominal pain, which is postprandial in nature. The plan as discussed with Dr. Choi is to continue morphine 2 mg IV q.6 hours p.r.n. pain, Protonix 40 mg IV daily, 0.9 saline at 100 mL per hour and Zofran 4 mg IV q. 6 hours p.r.n. nausea and vomiting. She will have an abdominal Doppler study ordered by him for completeness sake. I will order basic metabolic panel and hemoglobin, hematocrit. As stated previously ultimate plan is for the patient to be discharged on antacid therapy with Pepcid 20 mg p.o. b.i.d. for 2 months and a second opinion followup with GAURAV Eaton, at the [facility]. Hopefully, the patient will be compliant with the above recommendations. Betina Richter MD [facility] # [id number]
--- NOTE | 2017-07-21 15:37 | CP.PCM.PN ---
Subjective - Date & Time of Evaluation Date of Evaluation: 07/21/17 Time of Evaluation: 10:05 - Subjective Subjective: Seen and examined at the bedside earlier today. The chart was reviewed. The patient was able to tolerate dinner last night, no nausea or vomiting or much abdominal pain. She did have some breakfast this morning but only a a small amount. She did report being awakened around 4 AM earlier this morning with stabbing pain/cramping pain to the right upper quadrant of the abdomen, no nausea vomiting reports of overt GI bleeding. She did have a bowel movement yesterday although it was hard, no bleeding per rectum. Objective - Vital Signs/Intake and Output Vital Signs (last 24 hours): Temp Pulse Resp BP Pulse Ox 98.5 F 81 20 95/53 L 99 07/21/17 07:00 07/21/17 07:00 07/21/17 07:00 07/21/17 07:00 07/21/17 07:00 Intake and Output: 07/21/17 07/21/17 06:59 18:59 Intake Total 1080 Balance 1080 - Medications Medications: Current Medications Acetaminophen (Tylenol 325mg Tab) 650 mg PO Q4H PRN PRN Reason: Pain, Mild (1-3) Last Admin: 07/19/17 19:27 Dose: 650 mg Docusate Sodium (Colace) 100 mg PO BID [facility] Sodium Chloride (Sodium Chloride 0.9%) 1,000 mls @ 100 mls/hr IV .Q10H [facility] Last Admin: 07/21/17 07:19 Dose: Not Given Morphine Sulfate (Morphine) 2 mg IVP Q6H PRN PRN Reason: Pain, moderate (4-7) Ondansetron HCl (Zofran Inj) 4 mg IVP Q6H PRN PRN Reason: Nausea/Vomiting Last Admin: 07/17/17 06:36 Dose: 4 mg Pantoprazole Sodium (Protonix Inj) 40 mg IVP DAILY [facility] Last Admin: 07/21/17 10:01 Dose: 40 mg - Labs Labs: 07/21/17 13:15 07/21/17 13:15 PT 11.4 Seconds (9.9-11.8) 07/17/17 02:55 INR 1.06 (0.93-1.08) 07/17/17 02:55 APTT 27.8 Seconds (23.7-30.8) 07/17/17 02:55 - Constitutional Appears: No Acute Distress - Head Exam Head Exam: NORMOCEPHALIC - Eye Exam Eye Exam: Normal appearance. absent: Scleral icterus - ENT Exam ENT Exam: Mucous Membranes Moist - Neck Exam Neck Exam: Normal Inspection - Respiratory Exam Respiratory Exam: Clear to Ausculation Bilateral, NORMAL BREATHING PATTERN. absent: Respiratory Distress - Cardiovascular Exam Cardiovascular Exam: +S1, +S2 - GI/Abdominal Exam GI & Abdominal Exam: Soft, Tenderness (tenderness on deep palpation to epigastric area), Normal Bowel Sounds. absent: Guarding, Organomegaly, Rebound - Extremities Exam Extremities Exam: Normal Capillary Refill. absent: Calf Tenderness, Pedal Edema - Neurological Exam Neurological Exam: Alert, Awake, Oriented x3 - Skin Skin Exam: Dry, Warm Assessment and Plan - Assessment and Plan (Free Text) Assessment: Assessment: Abdominal pain status post EGD, chronic gastritis duodenitis status post biopsy Improved nausea/vomiting ? Irritable bowel disease Periportal edema on CT scan of abdomen and pelvis Status post abdominal Doppler to rule out any hepatic thrombosis, preliminary MRCP report reported questionable hepatic thrombus, final MRCP report is negative. Abdominal Doppler reported patent portal veins History of sickle cell trait Plan: Continue soft diet Continue PPI Follow-up EGD biopsies Follow-up IBD panel, results pending abdominal Doppler to assess inferior, mesenteric, superior and celiac [facility] periportal edema, attempted to call to make appointment, unable to get through, will reattempt, will give contact information for Dr. Zuniga.: [phone] Choi
[2017-07-22 01:53] LABS: ASCA IGA <20.0 U; ASCA IGG <20.0 U
[2017-07-22 04:52] VITALS: RESP 20
[2017-07-22 08:32] VITALS: BP 94/60; PULSE 72; TEMP 98; O2SAT 100
--- NOTE | 2017-07-22 09:27 | US ---
PROCEDURE: Duplex ultrasound of the mesenteric arteries. HISTORY: Abdominal pain. Evaluate for mesenteric ischemia. PHYSICIAN(S): Amaury Suárez MD. TECHNIQUE: Duplex sonography with color-flow Doppler was used to evaluate limited segments of the abdominal aorta and proximal segments of the mesenteric arteries. FINDINGS: Visualization of the origin of the celiac axis, SMA, and DEBORA is adequate.. The peak systolic velocity in the proximal celiac axis is 173cm/sec. This is consistent with a 0-49 percentstenosis of the proximal celiac axis. The peak systolic velocity in the proximal SMA is 135cm/sec. This is consistent with a 0 to 49% proximal SMA stenosis. The DEBORA is patent with normal velocities. IMPRESSION: 1. The celiac axis, SMA, and DEBORA are patent with normal velocities
--- NOTE | 2017-07-22 11:49 | CP.PCM.PN ---
Subjective - Date & Time of Evaluation Date of Evaluation: 07/22/17 Time of Evaluation: 09:10 - Subjective Subjective: Seen and examined at the dermatitis morning, abdominal pain still remains but no increase in intensity, still reports that it occurs after eating. But she is able to tolerate some oral intake, no reports of nausea or vomiting. She did have a bowel movement this morning, improved with Colace, no reports of bleeding. She went for abdominal Doppler this morning to evaluate the superior , inferior, mesenteric and celiac arteries and this was negative for thrombosis , see full report in chart. Objective - Vital Signs/Intake and Output Vital Signs (last 24 hours): Temp Pulse Resp BP Pulse Ox 98 F 72 20 94/60 L 100 07/22/17 07:00 07/22/17 07:00 07/22/17 07:00 07/22/17 07:00 07/22/17 07:00 Intake and Output: 07/22/17 07/22/17 06:59 18:59 Intake Total 840 Balance 840 - Medications Medications: Current Medications Acetaminophen (Tylenol 325mg Tab) 650 mg PO Q4H PRN PRN Reason: Pain, Mild (1-3) Last Admin: 07/19/17 19:27 Dose: 650 mg Docusate Sodium (Colace) 100 mg PO BID [facility] Last Admin: 07/22/17 09:40 Dose: 100 mg Sodium Chloride (Sodium Chloride 0.9%) 1,000 mls @ 100 mls/hr IV .Q10H [facility] Last Admin: 07/21/17 07:19 Dose: Not Given Morphine Sulfate (Morphine) 2 mg IVP Q6H PRN PRN Reason: Pain, moderate (4-7) Ondansetron HCl (Zofran Inj) 4 mg IVP Q6H PRN PRN Reason: Nausea/Vomiting Last Admin: 07/17/17 06:36 Dose: 4 mg Pantoprazole Sodium (Protonix Inj) 40 mg IVP DAILY [facility] Last Admin: 07/22/17 09:40 Dose: 40 mg - Labs Labs: 07/21/17 13:15 07/21/17 13:15 PT 11.4 Seconds (9.9-11.8) 07/17/17 02:55 INR 1.06 (0.93-1.08) 07/17/17 02:55 APTT 27.8 Seconds (23.7-30.8) 07/17/17 02:55 - Constitutional Appears: No Acute Distress - Eye Exam Eye Exam: Normal appearance. absent: Scleral icterus - ENT Exam ENT Exam: Mucous Membranes Moist - Neck Exam Neck Exam: Normal Inspection - Respiratory Exam Respiratory Exam: Clear to Ausculation Bilateral, NORMAL BREATHING PATTERN. absent: Respiratory Distress - Cardiovascular Exam Cardiovascular Exam: +S1, +S2 - GI/Abdominal Exam GI & Abdominal Exam: Soft, Tenderness (mild), Normal Bowel Sounds. absent: Distended, Guarding, Organomegaly, Rebound - Extremities Exam Extremities Exam: Normal Capillary Refill. absent: Calf Tenderness, Pedal Edema - Neurological Exam Neurological Exam: Alert, Awake, Oriented x3 Assessment and Plan - Assessment and Plan (Free Text) Assessment: Assessment: Abdominal pain status post EGD, chronic gastritis duodenitis status post biopsy Improved nausea/vomiting ? Irritable bowel disease, Inflammatory Bowel Disease panel negative Periportal edema on CT scan of abdomen and pelvis Status post abdominal Doppler to rule out any hepatic thrombosis, preliminary MRCP report reported questionable hepatic thrombus, final MRCP report is negative. Abdominal Doppler reported patent portal veins and abdominal doppler of abdominal arteries :SMA/PAPER TWISTER, etc negative History of sickle cell trait Plan: Continue soft diet Continue PPI on colace Follow-up EGD biopsies [facility] periportal edema, will fax patient information to jose Daugherty w/patient and Andreia RN to give contact information for Dr. Zuniga.: [phone] , info was placed in physician communication. Patient was told that if she does not hear from office, to contact our office as well. Seen and discussed w/Dr. Cordova covering Dr. Choi
--- NOTE | 2017-07-23 02:09 | DS ---
FINAL DIAGNOSES: Gastritis, duodenitis, abdominal pain resolved, history of sickle cell trait, pelvic dermoid cyst, chronic, and possible irritable bowel syndrome. DISPOSITION: Home. Followup with GAURAV Hemphill in 1 week, followup with her PMD Dr. Acacia Mayfield in 1 week, followup with GAURAV Eaton at [facility] for second opinion as recommended by Dr. Choi. Patient was given his given his name and phone number, which is [phone]. Followup with her current [employer] regarding chronic pelvic dermoid cyst. DISCHARGE DIET: Soft bland. DISCHARGE MEDICATIONS: Pepcid 20 mg p.o. b.i.d. for 2 months. SUMMARY: This 27-year-old female was admitted to [facility] with severe abdominal pain, nausea and vomiting that required parenteral morphine for pain control and patient was seen in consultation by Dr. Jennifer Choi because CAT scan had revealed periportal hepatic edema of unclear etiology for which he ordered abdominal ultrasound, duplex ultrasound of her hepatic vein as well as duplex arterial ultrasound of the mesenteric arteries and a noncontrast MRCP of the abdomen was completed as well. All studies were unremarkable and at the time of discharge, the patient is tolerating soft bland diet without any further vomiting and he is independent in ambulation. PHYSICAL EXAMINATION: VITAL SIGNS: Temperature 98, respirations 20, pulse 72, and blood pressure 107/67 with a pulse ox of 100% on room air. LABORATORY DATA: Discharge lab show hemoglobin of 11.4, hematocrit 34.5, PT/INR 1.06, PTT 27.8, sodium 140, potassium 4.4, chloride 104, bicarbonate 25, BUN 10, creatinine 0.8. Random blood sugar 84. Liver function testing was normal including bilirubin 0.4, AST 30, ALT 28, alkaline phosphatase 48. Urinalysis was unremarkable. Urine was negative. Her irritable bowel differentiation panel, what returned, was negative and hepatitis A,B, C panels were negative as well. ASSESSMENT AND PLAN: Patient is discharge to home. She has been advised to followup with the above doctors as outlined. She was told to return to the [facility] ER for any worsening signs and symptoms. 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 Hopefully she will be compliant with the above recommendations. Betina Richter MD ANIL
== END 2017-07-22 14:20 | disposition home or self-care (01) | DRG 392 ==
LOC: ED 02:30 → ERH 05:48 → 5RNO 06:42 → OBSVTOIN 16:39
PROVIDERS: ADMIT Internal Medicine; ATTEND Internal Medicine
PROC: 0DB68ZX Excision of Stomach, Via Natural or Artificial Opening Endoscopic, Diagnostic (ICD-10-PCS; principal; 2017-07-19 10:00)
DX: K29.70 Gastritis, unspecified, without bleeding (principal); K29.80 Duodenitis without bleeding; D36.7 Benign neoplasm of other specified sites; K58.9 Irritable bowel syndrome, unspecified; F32.9 Major depressive disorder, single episode, unspecified; D57.3 Sickle-cell trait; F41.9 Anxiety disorder, unspecified; Z80.41 Family history of malignant neoplasm of ovary; Z87.11 Personal history of peptic ulcer disease

== ENCOUNTER 2017-11-16 23:20 | Observation (INO) | payer BC ==
[2017-11-16 23:21] VITALS: BMI 18.4
--- NOTE | 2017-11-17 00:33 | ED PDOC ---
Arrival/HPI - General Historian: Patient - History of Present Illness Time/Duration: 1-3 hours Symptom Onset: Sudden <Jacquelin Alfaro - Last Filed: 11/17/17 03:35> <Andrew Nolan - Last Filed: 11/24/17 02:11> - General Chief Complaint: Abdominal Pain Time Seen by Provider: 11/16/17 23:32 - History of Present Illness Narrative History of Present Illness (Text): 11/17/17 00:28 27yr female presents today with left lower abdominal pain that started a few hours ago. Patient states she went to the bathroom and the pain came on suddenly. She describes the pain as sharp and stabbing. She denies radiation of pain to the back. Patient states the pain worsens every time she urinates. She denies chest pain or shortness of breath. Patient states she has been coughing for the past week. She denies fevers or chills. Denies dizziness or weakness. Patient states she has a history of frequent urinary tract infections with this does not feel the same. (Jacquelin Alfaro) Past Medical History - Provider Review Nursing Documentation Reviewed: Yes - Travel History Have you recently traveled outside [place] w/in the past 3 mons?: No - Infectious Disease Hx of Infectious Diseases: None - Tetanus Immunization Tetanus Immunization: Unknown - Cardiac Hx Cardiac Disorders: No - Pulmonary Hx Respiratory Disorders: No - Neurological Hx Neurological Disorder: No - HEENT Hx HEENT Disorder: No - Renal Hx Renal Disorder: No - Endocrine/Metabolic Hx Endocrine Disorders: No - Hematological/Oncological Hx Blood Disorders: Yes Hx Sickle Cell Trait: Yes - Integumentary Hx Dermatological Disorder: No - Musculoskeletal/Rheumatological Hx Musculoskeletal Disorders: No Hx Falls: No - Gastrointestinal Hx Gastrointestinal Disorders: Yes Other/Comment: ABD PAIN, ULCER - Genitourinary/Gynecological Hx Genitourinary Disorders: Yes Other/Comment: VAGINAL BLEEDING - Psychiatric Hx Anxiety: Yes Hx Depression: Yes Hx Substance Use: No - Surgical History Hx Section: Yes - Anesthesia Hx Anesthesia: Yes Hx Anesthesia Reactions: No Hx Malignant Hyperthermia: No <Jacquelin Alfaro - Last Filed: 11/17/17 03:35> Family/Social History - Physician Review Nursing Documentation Reviewed: Yes Family/Social History: Unknown Family HX Smoking Status: Never Smoked Hx Alcohol Use: No Hx Substance Use: No <Jacquelin Alfaro - Last Filed: 11/17/17 03:35> Allergies/Home Meds <Jacquelin Alfaro - Last Filed: 11/17/17 03:35> <AnAndrew - Last Filed: 11/24/17 02:11> Allergies/Adverse Reactions: Allergies No Known Allergies Allergy (Verified 11/16/17 23:43) Review of Systems - Review of Systems Constitutional: absent: Fatigue, Fevers Respiratory: Cough. absent: SOB, Sputum, Wheezing Cardiovascular: absent: Chest Pain, Palpitations Gastrointestinal: Abdominal Pain. absent: Constipation, Diarrhea, Nausea, Vomiting Genitourinary Female: Dysuria, Frequency, Vaginal Discharge. absent: Hematuria , Urine Output Changes, Vaginal Bleeding Musculoskeletal: absent: Arthralgias, Back Pain, Neck Pain Skin: absent: Rash, Pruritis Neurological: absent: Headache, Dizziness Psychiatric: absent: Anxiety, Depression, Suicidal Ideation <Jacquelin Alfaro - Last Filed: 11/17/17 03:35> Physical Exam Vital Signs Reviewed: Yes Temperature: Afebrile Blood Pressure: Normal Pulse: Regular Respiratory Rate: Normal Appearance: Positive for: Well-Appearing, Non-Toxic, Uncomfortable Pain Distress: None Mental Status: Positive for: Alert and Oriented X 3 - Systems Exam Head: Present: Atraumatic Mouth: Present: Moist Mucous Membranes Neck: Present: Normal Range of Motion Respiratory/Chest: Present: Clear to Auscultation, Good Air Exchange. No: Respiratory Distress, Accessory Muscle Use Cardiovascular: Present: Regular Rate and Rhythm, Normal S1, S2. No: Murmurs Abdomen: Present: Tenderness (+ left sided abd tenderness; ), Normal Bowel Sounds, Guarding. No: Distention, Peritoneal Signs, Rebound Genitourinary/Pelvic Exam: Present: Normal External Genitalia, Vaginal Discharge , Adenexal Tenderness (left sided adenexal tenderness), Cervical Motion Tendernes, Cervical os Closed, Other (chaparoned by Manuela VU). No: Vaginal Bleeding, Vaginal Lesions, Odor Back: Present: Normal Inspection. No: CVA Tenderness, Midline Tenderness, Paraspinal Tenderness Upper Extremity: Present: Normal ROM Lower Extremity: Present: Normal ROM Neurological: Present: GCS=15, Speech Normal Skin: Present: Warm, Dry, Normal Color. No: Rashes Psychiatric: Present: Alert, Oriented x 3 <Jacquelin Alfaro - Last Filed: 11/17/17 03:35> Vital Signs Temp Pulse Resp BP Pulse Ox 11/17/17 02:42 98.0 F 69 17 114/66 100 11/16/17 23:44 98.3 F 85 18 124/86 100 Medical Decision Making <Jacquelin Alfaro - Last Filed: 11/17/17 03:35> <Andrew Nolan - Last Filed: 11/24/17 02:11> ED Course and Treatment: 11/17/17 00:34 Patient is nontoxic well appearing with stable vital signs presenting with left lower abdominal pain CBC: wnl CMP: wnl Urinalysis: + blood, trace leukocytes, few bacteria. Ultrasound, transvaginal;FINDINGS: Uterus: Uterus is anteflexed. Uterus measures 8 x 4 x 6 cm. Endometrium is not optimally visualized but measures 15.4 mm in width. Right ovary: Right ovary measures approximately 3 x 2.5 x 1.9 cm.There are multiple small follicles. There is intraovarian blood flow. Left ovary: Left ovary measures approximately 3.5 x 2.3 x 3 cm.There are multiple small follicles. There is intraovarian blood flow. Free fluid: There is no free fluid. Bladder: The bladder is incompletely distended. IMPRESSION: Normal transabdominal pelvic ultrasound EXAM: US Pelvis, Transvaginal TECHNIQUE: Real-time transvaginal pelvic ultrasound (complete) with image documentation. Transvaginal imaging was used for better evaluation of the endometrium and adnexa. COMPARISON: US - TRANSVAGINAL 2017-01-10 23:08 FINDINGS: Uterus: Cervix measures approximately 2.8 cm in length. Endometrium measures approximately 11.8 mm in width. Right ovary: Right ovary measures approximately 2.9 x 1.5 x 2.3 cm.There are multiple small follicles. There is intraovarian blood flow. Left ovary: Left ovary measures approximately 3.1 x 1.5 x 2.8 cm. There are multiple cystic structures adjacent to the left ovary without flow on color imaging. Free fluid: There is a small amount of free fluid. Bladder: Not evaluated IMPRESSION: Normal ovaries, no torsion; prominent left tube CAT scan: pt given toradol for pain; Patient reassessment: pt with continued pain; morphine added, pt c/o nausea; zofran added. gc/ chlamydia ordered. Patient with cervical motion tenderness and possible hydrosalpinx on ultrasound concerning for PID Rocephin IM, Zithromax by mouth. pt with continued pain despite toradol and morphine; additional morphine added. will start doxycycline IV for PID. Discussed all results with patient in depth Case was discussed in depth with Dr. Rodriguez (medical service). He would like the patient to be given to the hospitalist service. case discussed in depth with dr. yi; accepts observational status admission for intractable abdominal pain, hydrosalpinx, vaginal discharge ? PID. all aspects of this case were discussed the attending of record. Impression: Abdominal pain, PID admit observational status to med/surg. (Jacquelin Alfaro) EXAM: CT Abdomen and Pelvis Without Intravenous Contrast Dictated and Authenticated by: Sarah Miller MD 11/17/2017 3:40 AM IMPRESSION: - No evidence of significant acute process on this unenhanced exam. - 3.8 cm round, posterior pelvic mass containing fat, soft tissue and calcifications, stable in appearance from a prior CT of 07/17/2017. This most likely represents an ovarian dermoid. - See above for remaining findings. (Andrew Nolan) - Lab Interpretations Microbiology Results: Microbiology Results 11/17/17 00:20 Urine Urine Culture - Final No Growth (<1,000 CFU/ML) Lab Results: 11/17/17 00:20 11/17/17 00:20 Lab Results 11/17/17 00:20: WBC 7.4, RBC 4.90, Hgb 11.6 L, Hct 35.8 L, MCV 73.1 L, MCH 23.7 L, MCHC 32.4, RDW 16.8 H, Plt Count 220, MPV 9.2, Gran % 65.9, Lymph % (Auto) 24.1, [place] % (Auto) 8.0 H, Eos % (Auto) 1.9, Baso % (Auto) 0.1, Gran # 4.88, Lymph # 1.8, [place] # 0.6, Eos # 0.1, Baso # 0.01 11/17/17 00:20: Sodium 144, Potassium 4.1, Chloride 107, Carbon Dioxide 27, Anion Gap 14, BUN 5 L, Creatinine 0.6 L, Est GFR ( Amer) > 60, Est GFR ( Non-Af Amer) > 60, Random Glucose 87, Calcium 9.2, Total Bilirubin 0.2, AST 56 H , ALT 52, Alkaline Phosphatase 52, Total Protein 7.2, Albumin 4.0, Globulin 3.2 , Albumin/Globulin Ratio 1.3 11/17/17 00:20: Urine Color Yellow, Urine Appearance Clear, Urine pH 6.0, Ur Specific [place] 1.015, Urine Protein Trace H, Urine Glucose (UA) Negative, Urine Ketones Negative, Urine Blood Trace-intact H, Urine Nitrate Negative, Urine Bilirubin Negative, Urine Urobilinogen 0.2, Ur Leukocyte Esterase Trace H , Urine RBC 0 - 2, Urine WBC 2 - 5, Ur Epithelial Cells 3 - 4, Urine Bacteria Rare - RAD Interpretation Radiology Orders: 11/16/17 23:53 TRANSVAGINAL [US] Stat 11/17/17 00:25 ABD & PELVIS W/O PO OR IV CONT [CT] Stat - Medication Orders Current Medication Orders: Discontinued Medications Azithromycin (Zithromax) 1,000 mg PO STAT STA PRN Reason: Protocol Stop: 11/17/17 02:26 Last Admin: 11/17/17 03:22 Dose: 1,000 mg Ceftriaxone Sodium (Rocephin) 250 mg IM STAT STA PRN Reason: Protocol Stop: 11/17/17 02:26 Last Admin: 11/17/17 03:51 Dose: 250 mg IM Administration Charges Document 11/17/17 03:51 AB (Rec: 11/17/17 03:51 AB [id number]) Injection Site MAR Injection Site Right Gluteus Medius Charges for Administration # of IM Administrations 1 Docusate Sodium (Colace) 100 mg PO BID [facility] Last Admin: 11/18/17 09:33 Dose: 100 mg Last Bowel Movement Document 11/18/17 09:33 ANTONETTE (Rec: 11/18/17 09:33 JA [id number]) Last Bowel Movement Last Bowel Movement 11/18/17 Doxycycline Hyclate (Doryx) 100 mg PO Q12H AJIT PRN Reason: Protocol Last Admin: 11/18/17 18:07 Dose: Famotidine (Pepcid) 20 mg IVP STAT STA Stop: 11/17/17 17:36 Doxycycline Hyclate 100 mg/ (Sodium Chloride) 100 mls @ 100 mls/hr IVPB STAT STA PRN Reason: Protocol Stop: 11/17/17 03:49 Last Admin: 11/17/17 03:51 Dose: 100 mls/hr eMAR Start Stop Document 11/17/17 03:51 AB (Rec: 11/17/17 03:51 AB [id number] Intravenous Solution Start Date 11/17/17 Start Time 03:51 End Date 11/17/17 Sodium Chloride (Sodium Chloride 0.9%) 1,000 mls @ 999 mls/hr IV .Q1H1M STA Stop: 11/17/17 03:50 Last Admin: 11/17/17 03:22 Dose: 999 mls/hr eMAR Start Stop Document 11/17/17 03:22 [email or web address] (Rec: 11/17/17 03:23 [email or web address] [id number]) Intravenous Solution Start Date 11/17/17 Start Time 03:22 End Date 11/17/17 Cefoxitin Sodium 2 gm/ Sodium (Chloride) 100 mls @ 100 mls/hr IV Q6H AJIT PRN Reason: Protocol Last Admin: 11/18/17 17:00 Dose: 100 mls/hr eMAR Start Stop Document 11/18/17 17:00 JA (Rec: 11/18/17 17:00 JA [id number]) Intravenous Solution Start Date 11/18/17 Start Time 17:00 Sodium Chloride (Sodium Chloride 0.9%) 1,000 mls @ 100 mls/hr IV .Q10H AJIT Last Admin: 11/17/17 05:12 Dose: 100 mls/hr eMAR Start Stop Document 11/17/17 05:12 IMT (Rec: 11/17/17 05:12 IMT [id number]) Intravenous Solution Start Date 11/17/17 Start Time 05:12 Ketorolac Tromethamine (Toradol) 30 mg IVP STAT STA Stop: 11/17/17 00:24 Last Admin: 11/17/17 01:33 Dose: 30 mg MAR Pain Assessment Document 11/17/17 01:33 [facility] (Rec: 11/17/17 01:[id number]) Pain Reassessment Is this a pain reassessment? No Sleep Is patient sleeping during reassessment? No Presence of Pain Presence of Pain Yes Pain Scale Used Pain Scale Used Numeric Location Left, Right or Bilateral Left Pain Location Body Site Abdomen Description Description Constant Intensity of Pain at present 9 Pain Behavior Facial Grimacing Aggravating Factors Changing Position Alleviating Factors/Management Position Change Techniques Alleviating Factors Medication IVP Administration Document 11/17/17 01:33 CAST (Rec: 11/17/17 01:[id number]) Charges for Administration # of IVP Administrations 1 Ketorolac Tromethamine (Toradol) 30 mg IVP Q6 PRN PRN Reason: Pain, moderate (4-7) Morphine Sulfate (Morphine) 2 mg IVP STAT STA Stop: 11/17/17 02:11 Last Admin: 11/17/17 02:27 Dose: 2 mg MAR Pain Assessment Document 11/17/17 02:27 CAST (Rec: 11/17/17 02:[id number]) Pain Reassessment Is this a pain reassessment? No Sleep Is patient sleeping during reassessment? No Presence of Pain Presence of Pain Yes Pain Scale Used Pain Scale Used Numeric Location Left, Right or Bilateral Left Pain Location Body Site Abdomen Description Description Constant Intensity of Pain at present 8 Pain Behavior Facial Grimacing Aggravating Factors Changing Position Alleviating Factors/Management Medication Techniques Alleviating Factors Medication IVP Administration Document 11/17/17 02:27 [facility] (Rec: 11/17/17 02:[id number]) Charges for Administration # of IVP Administrations 1 Morphine Sulfate (Morphine) 2 mg IVP STAT STA Stop: 11/17/17 02:51 Last Admin: 11/17/17 03:52 Dose: Morphine Sulfate (Morphine) 1 mg IVP Q4H PRN PRN Reason: Pain, severe (8-10) Last Admin: 11/17/17 09:17 Dose: 1 mg MAR Pain Assessment Document 11/17/17 09:17 LMN (Rec: 11/17/17 09:18 LMN [id number]) Pain Reassessment Is this a pain reassessment? No Presence of Pain Presence of Pain Yes Pain Scale Used Pain Scale Used Numeric Location Upper or Lower Lower Pain Location Body Site Abdomen IVP Administration Document 11/17/17 09:17 LMN (Rec: 11/17/17 09:18 LMN [id number]) Charges for Administration # of IVP Administrations 1 Ondansetron HCl (Zofran Inj) 4 mg IVP STAT STA Stop: 11/17/17 02:29 Last Admin: 11/17/17 03:22 Dose: 4 mg IVP Administration Document 11/17/17 03:22 [email or web address] (Rec: 11/17/17 03:22 [email or web address] [id number]) Charges for Administration # of IVP Administrations 1 Ondansetron HCl (Zofran Inj) 4 mg IVP Q6H PRN PRN Reason: Nausea/Vomiting Last Admin: 11/18/17 10:11 Dose: 4 mg IVP Administration Document 11/18/17 10:11 JA (Rec: 11/18/17 10:11 JA [id number]) Charges for Administration # of IVP Administrations 1 Pantoprazole Sodium (Protonix Ec Tab) 40 mg PO 0600 AJIT Last Admin: 11/18/17 05:33 Dose: Not Given Non-Admin Reason: Patient Refused - 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 <Andrew Nolan - Last Filed: 11/24/17 02:11> Disposition/Present on Arrival - Present on Arrival Any Indicators Present on Arrival: No History of DVT/PE: No History of Uncontrolled Diabetes: No Urinary Catheter: No History of Decub. Ulcer: No History Surgical Site Infection Following: None - Disposition Have Diagnosis and Disposition been Completed?: Yes Disposition Time: 03:35 Patient Plan: Observation <Jacquelin Alfaro - Last Filed: 11/17/17 03:35> <Andrew Nolan - Last Filed: 11/24/17 02:11> - Disposition Diagnosis: Intractable abdominal pain, Pelvic inflammatory disease (PID) Disposition: HOSPITALIZED Condition: FAIR
[2017-11-17 00:34] LABS: BASO # 0.01 K/mm3 (0.0-2.0); BASO % 0.1 % (0.0-3.0); EOS # 0.1 (0.0-0.7); EOS % 1.9 % (1.5-5.0); GRAN # 4.88 (1.4-6.5); GRAN % 65.9 % (50.0-68.0); HEMOGLOBIN 11.6 g/dL (12.0-16.0); LYMPH # 1.8 (1.2-3.4); LYMPH % 24.1 % (22.0-35.0); MEAN CELL VOLUME 73.1 fl (80.0-105.0); MEAN CORPUSCULAR HEMOGLOBIN 23.7 pg (25.0-35.0); MEAN CORPUSCULAR HGB CONC 32.4 g/dl (31.0-37.0); MEAN PLATELET VOLUME 9.2 fl (7.0-11.0); MONO # 0.6 (0.1-0.6); RBC 4.9 10^6/uL (3.5-6.1); RED CELL DISTRIBUTION WIDTH 16.8 % (11.5-14.5); URINE BILIRUBIN NEGATIVE (NEGATIVE); URINE BLOOD TRACE-INTACT (NEGATIVE); URINE GLUCOSE (UA) NEGATIVE (NEGATIVE); URINE LEUKOCYTE ESTERASE TRACE Leu/uL (NEGATIVE); URINE NITRATE NEGATIVE (NEGATIVE); URINE PROTEIN TRACE mg/dL (<30 mg/dL); URINE UROBILINOGEN 0.2 E.U./dL (<1 E.U./dL); WHITE BLOOD COUNT 7.4 10^3/ul (4.5-11.0)
[2017-11-17 00:47] LABS: URINE APPEARANCE CLEAR (CLEAR); URINE COLOR YELLOW (YELLOW)
[2017-11-17 00:52] LABS: URINE BACTERIA RARE (NEG); URINE RBC 0 - 2 /hpf (0-2)
[2017-11-17 00:53] LABS: ALB/GLOB RATIO 1.3 (1.1-1.8); ALT/SGPT 52 U/L (7-56); AST/SGOT 56 U/L (14-36); BLOOD UREA NITROGEN 5 mg/dL (7-21); CALCIUM 9.2 mg/dL (8.4-10.5); GFR AFRICAN-AMERICAN > 60; GFR NON-AFRICAN AMERICAN > 60
--- NOTE | 2017-11-17 01:57 | US ---
EXAM: US Pelvis Complete, Transabdominal CLINICAL HISTORY: 27 years old, female; Pain; Pelvic pain; Additional info: Pain left lower TECHNIQUE: Real-time transabdominal pelvic ultrasound (complete) with image documentation. COMPARISON: Pelvic ultrasound 01/10/17 FINDINGS: Uterus: Uterus is anteflexed. Uterus measures 8 x 4 x 6 cm. Endometrium is not optimally visualized but measures 15.4 mm in width. Right ovary: Right ovary measures approximately 3 x 2.5 x 1.9 cm.There are multiple small follicles. There is intraovarian blood flow. Left ovary: Left ovary measures approximately 3.5 x 2.3 x 3 cm.There are multiple small follicles. There is intraovarian blood flow. Free fluid: There is no free fluid. Bladder: The bladder is incompletely distended. IMPRESSION: Normal transabdominal pelvic ultrasound EXAM: US Pelvis, Transvaginal EXAM DATE/TIME: 11/16/2017 11:53 PM CLINICAL HISTORY: 27 years old, female; Pain; Pelvic pain; Additional info: Pain left lower TECHNIQUE: Real-time transvaginal pelvic ultrasound (complete) with image documentation. Transvaginal imaging was used for better evaluation of the endometrium and adnexa. COMPARISON: US - TRANSVAGINAL 2017-01-10 23:08 FINDINGS: Uterus: Cervix measures approximately 2.8 cm in length. Endometrium measures approximately 11.8 mm in width. Right ovary: Right ovary measures approximately 2.9 x 1.5 x 2.3 cm.There are multiple small follicles. There is intraovarian blood flow. Left ovary: Left ovary measures approximately 3.1 x 1.5 x 2.8 cm. There are multiple cystic structures adjacent to the left ovary without flow on color imaging. Free fluid: There is a small amount of free fluid. Bladder: Not evaluated IMPRESSION: Normal ovaries, no torsion; prominent left tube
[2017-11-17] MEDS ORDERED: Morphine 2 mg/ml ISec IVP STA ×2 (02:10→02:50)
[2017-11-17] MEDS ORDERED: cefTRIAXone (Rocephin) 250 mg Inj IM STA (02:25)
[2017-11-17] MEDS ORDERED: Sodium Chloride 0.9% 1,000 ML IV STA (02:50)
--- NOTE | 2017-11-17 03:38 | CP.PCM.HP ---
<Justen Salmon - Last Filed: 11/17/17 04:26> History of Present Illness - History of Present Illness History of Present Illness: 27 year old female with a past medical history of PID, peptic ulcer disease, recurrent UTI and SC trait who presents with acute onset dysuria and associated left sided abdominal/flank pain that started at 7:00 PM upon urinating. Patient reports the pain is 10/10 in severity; pressure like, constant, worsened with urination, not associated with eating, moving, or improved by anything. Patient denies fever, chills, nausea, vomiting, diarrhea, constipation, but admits to dyspareunia that is chronic in nature. She also relays having a history of chlamydia in the past and taking Bactrim DS after intercourse as UTI prophylaxis. PMD: None PMH: PID, PUD, recurrent UTI, and SC trait PSH: Medications: Bactrim PO to be taken after intercourse due to frequent UTI Allergies: allergic to red fruit OBGYN: 1 ; FDLMP was november 04, states periods are at regular intervals. Social: [facility], has one child, drinks, denies alcohol or illicit drug use. Present on Admission - Present on Admission Any Indicators Present on Admission: No Review of Systems - Constitutional Constitutional: As Per HPI Past Patient History - Infectious Disease Hx of Infectious Diseases: None - Tetanus Immunizations Tetanus Immunization: Unknown - Past Social History Smoking Status: Never Smoked - CARDIAC Hx Cardiac Disorders: No - PULMONARY Hx Respiratory Disorders: No - NEUROLOGICAL Hx Neurological Disorder: No - HEENT Hx HEENT Problems: No - RENAL Hx Chronic Kidney Disease: No - ENDOCRINE/METABOLIC Hx Endocrine Disorders: No - HEMATOLOGICAL/ONCOLOGICAL Hx Blood Disorders: Yes - INTEGUMENTARY Hx Dermatological Problems: No - MUSCULOSKELETAL/RHEUMATOLOGICAL Hx Musculoskeletal Disorders: No Hx Falls: No - GASTROINTESTINAL Hx Gastrointestinal Disorders: Yes Other/Comment: ABD PAIN, ULCER - GENITOURINARY/GYNECOLOGICAL Hx Genitourinary Disorders: Yes Other/Comment: VAGINAL BLEEDING - PSYCHIATRIC Hx Anxiety: Yes Hx Depression: Yes Hx Substance Use: No - SURGICAL HISTORY Hx Section: Yes - ANESTHESIA Hx Anesthesia: Yes Hx Anesthesia Reactions: No Hx Malignant Hyperthermia: No Meds Allergies/Adverse Reactions: Allergies Allergy/AdvReac Type Severity Reaction Status Date / Time No Known Allergies Allergy Verified 11/16/17 23:43 Physical Exam - Constitutional Appears: Well, Non-toxic - Head Exam Head Exam: ATRAUMATIC, NORMOCEPHALIC - Eye Exam Eye Exam: EOMI, Normal appearance - ENT Exam ENT Exam: Mucous Membranes Moist, Normal Oropharynx - Neck Exam Neck exam: Positive for: Normal Inspection - Respiratory Exam Respiratory Exam: Clear to Auscultation Bilateral, NORMAL BREATHING PATTERN - Cardiovascular Exam Cardiovascular Exam: RRR, +S1, +S2 - GI/Abdominal Exam GI & Abdominal Exam: Normal Bowel Sounds, Soft, Tenderness (left side of abdomen ) - Exam Additional comments: no suprapubic tenderness - Extremities Exam Extremities exam: Positive for: normal capillary refill, normal inspection. Negative for: calf tenderness - Back Exam Back exam: NORMAL INSPECTION. absent: CVA tenderness (L), CVA tenderness (R) - Neurological Exam Neurological exam: Alert, CN II-XII Intact, Oriented x3 - Psychiatric Exam Psychiatric exam: Normal Affect, Normal Mood - Skin Skin Exam: Dry, Intact, Normal Color, Warm Additional comments: patient does appear oddly pale Results - Vital Signs Recent Vital Signs: Last Vital Signs Temp 98.0 F 11/17/17 02:42 Pulse 69 11/17/17 02:42 Resp 17 11/17/17 02:42 BP 114/66 11/17/17 02:42 Pulse Ox 100 11/17/17 02:42 - Labs Result Diagrams: 11/17/17 00:20 11/17/17 00:20 Assessment & Plan - Assessment and Plan (Free Text) Assessment: 27 year old female with a past medical history significant for PUD, sickle-cell trait, and PID who presents with acute onset left-sided abdominal pain associated with urination. Plan: 1) Abdominal pain possibly secondary to pelvic inflammatory disease with concurrent UTI - Non-contrast CT A/P is unremarkable for an acute process, but does show a 3.8 cm round, posterior pelvic mass containing fat, soft tissue and calcifications, stable in appearance from a prior CT of 07/17/2017 and most likely represents an ovarian dermoid. - Transvaginal US, unremarkable - Per physician safety assistant, patient did have cervical motion tenderness. - 100 ml/hr of NS - Morphine 1 mg q4h PRN for severe pain - Cefoxitin 2 g q6h IV - Doxycycline 100 mg PO q12h - OBGYN consulted, Dr. May 2) GI/DVT prophylaxis - Protonix 40 mg PO daily - Sequential compression device Case discussed with attending, Dr. Urbano - Date & Time Date: 11/17/17 Time: 03:51 <Jason Urbano MD - Last Filed: 11/17/17 07:37> Results - Vital Signs Recent Vital Signs: Last Vital Signs Temp 97.4 F L 11/17/17 04:31 Pulse 68 11/17/17 04:31 Resp 20 11/17/17 04:31 BP 120/78 11/17/17 04:31 Pulse Ox 100 11/17/17 02:42 - Labs Result Diagrams: 11/17/17 00:20 11/17/17 00:20 Attending/Attestation - Attestation I have personally seen and examined this patient.: Yes I have fully participated in the care of the patient.: Yes I have reviewed all pertinent clinical information: Yes Notes (Text): -I agree with the above H&P completed by the resident physician with the following additions and/or changes: -The patient is a 27 year old woman with a history of recurrent UTI's, dermoid cyst and Chlamydia infection, who is being admitted with intractable left lower abdominal pain and dysuria likely due to PID. Although, abdominal imaging was negative, pelvic exam (performed by ED PA), reportedly showed cervical motion and adnexal tenderness and white colored discharge. Given these positive pelvic exam findings, alongside the patient's history of STD's, a presumed diagnosis was made and antibiotics started (IV Cefoxitin and oral Doxy). Also, a ENTRY LEVEL BUSINESS ANALYST consult has been placed. Patient could not be discharged home on oral antibiotics, with outpatient ENTRY LEVEL BUSINESS ANALYST follow-up, mainly because of the intractable nature of her pain. An HIV test as well as urine Chlamydia/Gonorrhea have been ordered.
--- NOTE | 2017-11-17 03:40 | CT ---
EXAM: CT Abdomen and Pelvis Without Intravenous Contrast EXAM DATE/TIME: 11/17/2017 12:25 AM CLINICAL HISTORY: 27 years old, female; Pain; Abdominal pain; Acute; Additional info: Left sided abdominal pain TECHNIQUE: Axial computed tomography images of the abdomen and pelvis without intravenous contrast. All CT scans at this facility use one or more dose reduction techniques, viz.: automated exposure control; ma/kV adjustment per patient size (including targeted exams where dose is matched to indication; i.e. head); or iterative reconstruction technique. Coronal and sagittal reformatted images were created and reviewed. COMPARISON: Prior CT abdomen and pelvis of 2017-07-17 FINDINGS: LIMITATIONS: Mild streak/motion artifact. LOWER THORAX: No infiltrate seen in the lung bases. ABDOMEN: LIVER: No acute abnormality of the liver identified. GALLBLADDER AND BILE DUCTS: No CT evidence of acute cholecystitis. No evidence of significant biliary ductal dilatation. PANCREAS: No CT evidence of acute pancreatitis. SPLEEN: No acute abnormality of the spleen identified. ADRENALS: No acute abnormality of the adrenal glands identified. KIDNEYS AND URETERS: No acute abnormality of the kidneys seen. STOMACH AND BOWEL: No acute abnormality of the stomach, small bowel or colon identified. No evidence of bowel obstruction. APPENDIX: Appendix is seen, in a high location, in the right lower abdomen, images 48-53 of series 601, and is within normal limits in appearance. PELVIS: BLADDER: No acute abnormality of the bladder identified. REPRODUCTIVE: Stable appearance of a 3.8 x 3.7 cm round mass in the posterior pelvis, centered just to the right of midline. This appears composed of fat and soft tissue, and contains small calcifications. It has well-defined margins. It most likely represents an ovarian dermoid. This was not seen on the recent pelvic ultrasound, and it may have been obscured by bowel gas on that exam. No acute abnormality of the uterus identified. ABDOMEN and PELVIS: INTRAPERITONEAL SPACE: No evidence of free intraperitoneal air or fluid. BONES/JOINTS: No acute fractures or other acute bony abnormality noted. SOFT TISSUES: No acute abnormality of the visualized soft tissues is seen. VASCULATURE: No evidence of abdominal aortic aneurysm. No evidence of periaortic hemorrhage. LYMPH NODES: No evidence of diffuse lymphadenopathy. IMPRESSION: - No evidence of significant acute process on this unenhanced exam. - 3.8 cm round, posterior pelvic mass containing fat, soft tissue and calcifications, stable in appearance from a prior CT of 07/17/2017. This most likely represents an ovarian dermoid. - See above for remaining findings.
[2017-11-17] MEDS ORDERED: Lidocaine 1% Inj (20ml) ONE (03:44)
[2017-11-17] MEDS ORDERED: Sodium Chloride 0.9% 1,000 ML IV SCH (03:45)
[2017-11-17] MEDS: Morphine 2 mg/ml ISec IVP PRN ×2 (05:12→09:17)
[2017-11-17] MEDS: Pantoprazole 40 mg EC Tab PO SCH (06:45)
[2017-11-17] MEDS: cefOXitin 2 GM in Sodium Chloride 0.9% 100 ML IV SCH ×3 (09:49→21:35)
--- NOTE | 2017-11-17 19:27 | CARD ---
APPROVED REPORT EKG Measurement Heart [id number] <Conclusion> Normal sinus rhythm with sinus arrhythmia Normal ECG
[2017-11-18] MEDS: cefOXitin 2 GM in Sodium Chloride 0.9% 100 ML IV SCH ×3 (03:32→17:00)
[2017-11-18] MEDS: Pantoprazole 40 mg EC Tab PO SCH (05:33)
[2017-11-18 06:00] VITALS: RESP 20
--- NOTE | 2017-11-18 06:15 | CP.PCM.PN ---
<Gadiel Guerrero - Last Filed: 11/18/17 19:06> Subjective - Date & Time of Evaluation Date of Evaluation: 11/18/17 Time of Evaluation: 06:00 - Subjective Subjective: Patient seen and examined at bedside in no acute distress. According to overnight nurse patient did not complain of abdominal or chest pain. Patient was examined and states that her chest pain she was having yesterday evening has resolved, abdominal pain has improved as she was able to sleep. During examination however patient was tender upon palpation of abdomen. Yesterday evening patient states she did not want morphine as it made her more nauseous and caused chest pain; pain medication was switched to toradol which patient is tolerating well. OBGYN is to see the patient today for further evaluation. Patient denies chest pain, fevers, chills, shortness of breath, cough. Objective - Vital Signs/Intake and Output Vital Signs (last 24 hours): Temp Pulse Resp BP Pulse Ox 96 F L 87 20 111/76 98 11/18/17 00:00 11/18/17 00:00 11/18/17 00:00 11/18/17 00:00 11/18/17 00:00 Intake and Output: 11/17/17 11/18/17 18:59 06:59 Intake Total 480 500 Balance 480 500 - Medications Medications: Current Medications Docusate Sodium (Colace) 100 mg PO BID [facility] Last Admin: 11/17/17 18:45 Dose: 100 mg Doxycycline Hyclate (Doryx) 100 mg PO Q12H [facility] PRN Reason: Protocol Last Admin: 11/18/17 03:54 Dose: 100 mg Cefoxitin Sodium 2 gm/ Sodium (Chloride) 100 mls @ 100 mls/hr IV Q6H [facility] PRN Reason: Protocol Last Admin: 11/18/17 03:32 Dose: 100 mls/hr Sodium Chloride (Sodium Chloride 0.9%) 1,000 mls @ 100 mls/hr IV .Q10H [facility] Last Admin: 11/17/17 05:12 Dose: 100 mls/hr Ketorolac Tromethamine (Toradol) 30 mg IVP Q6 PRN PRN Reason: Pain, moderate (4-7) Morphine Sulfate (Morphine) 1 mg IVP Q4H PRN PRN Reason: Pain, severe (8-10) Last Admin: 11/17/17 09:17 Dose: 1 mg Ondansetron HCl (Zofran Inj) 4 mg IVP Q6H PRN PRN Reason: Nausea/Vomiting Pantoprazole Sodium (Protonix Ec Tab) 40 mg PO 0600 [facility] Last Admin: 11/18/17 05:33 Dose: Not Given - Constitutional Appears: Non-toxic, No Acute Distress - Head Exam Head Exam: ATRAUMATIC, NORMAL INSPECTION, NORMOCEPHALIC - Eye Exam Eye Exam: EOMI, Normal appearance - ENT Exam ENT Exam: Mucous Membranes Moist - Respiratory Exam Respiratory Exam: Clear to Ausculation Bilateral, NORMAL BREATHING PATTERN. absent: Wheezes - Cardiovascular Exam Cardiovascular Exam: REGULAR RHYTHM, +S1, +S2 - GI/Abdominal Exam GI & Abdominal Exam: Soft, Tenderness (upon palpation), Normal Bowel Sounds - Extremities Exam Extremities Exam: Normal Inspection - Back Exam Back Exam: NORMAL INSPECTION - Neurological Exam Neurological Exam: Alert, Awake, Oriented x3 - Psychiatric Exam Psychiatric exam: Normal Affect, Normal Mood - Skin Skin Exam: Intact, Normal Color, Warm Assessment and Plan - Assessment and Plan (Free Text) Assessment: 27 year old female with a past medical history significant for PUD, sickle-cell trait, and PID who presents with acute onset left-sided abdominal pain associated with urination. Plan: Plan: 1) Abdominal pain possibly secondary to pelvic inflammatory disease with concurrent UTI - Non-contrast CT A/P is unremarkable for an acute process, but does show a 3.8 cm round, posterior pelvic mass containing fat, soft tissue and calcifications, stable in appearance from a prior CT of 07/17/2017 and most likely represents an ovarian dermoid. - Transvaginal US, normal ovaries, no torsion, prominent left tube - Per physician product safety technical assistant, patient did have cervical motion tenderness. - 100 ml/hr of NS - Morphine 1 mg q4h PRN for severe pain discontinued due to patient stating it causes chest pain and nausea, changed to toradol for pain - Cefoxitin 2 g q6h IV - Doxycycline 100 mg PO q12h - OBGYN consulted, Dr. Fernández 2) GI/DVT prophylaxis - Protonix 40 mg PO daily - Sequential compression device Case discussed with attending, Dr. Fabian <Liyah Fabian - Last Filed: 11/19/17 13:47> Objective - Vital Signs/Intake and Output Vital Signs (last 24 hours): Temp Pulse Resp BP Pulse Ox 98.5 F 82 20 137/89 96 11/18/17 07:30 11/18/17 07:30 11/18/17 07:30 11/18/17 07:30 11/18/17 07:30 Attending/Attestation - Attestation I have personally seen and examined this patient.: Yes I have fully participated in the care of the patient.: Yes I have reviewed all pertinent clinical information, including history, physical exam and plan: Yes
--- NOTE | 2017-11-18 08:08 | RAD ---
HISTORY: Chest Pain COMPARISON: No prior. FINDINGS: LUNGS: No active pulmonary disease. PLEURA: No significant pleural effusion identified, no pneumothorax apparent. CARDIOVASCULAR: Normal. OSSEOUS STRUCTURES: No significant abnormalities. VISUALIZED UPPER ABDOMEN: Normal. OTHER FINDINGS: None. IMPRESSION: No active disease.
[2017-11-18 08:39] VITALS: BP 137/89; PULSE 82; TEMP 98.5; O2SAT 96
--- NOTE | 2017-11-18 14:21 | CON ---
DATE: 11/18/2017 HISTORY OF PRESENT ILLNESS: This is a 27-year-old G3, P2-0-1-2, last menstrual period 11/04/2017, who was admitted on 11/17/2017 to [facility] for left lower quadrant pain. The patient reports that she had some pain with intercourse in the left lower quadrant on Wednesday on 11/13/2017. The patient reports that she had a vaginal odor that seems to have resolved she has been hospitalized. She also reports that she had pain with urination, but no longer has pain with urination since she has been admitted. The patient reports that she is trying to conceive with her partner, who is a father of her last baby. The patient reports that they have "an alternative lifestyle." She reports that her partner sleeps with other people, but will not go to the clinic to be checked for STDs and does not seem to be using protection with his other partners. The patient reports that she has a history of Chlamydia in 2015 with the same partner and she also has a history of Trichomonas. In the Emergency Department, she received azithromycin 1 g p.o. and ceftriaxone 250 mg IM. Since she has been admitted, she is receiving cefoxitin 2 g IV q.6 hours and she doxycycline 100 mg p.o. q.12 hours. Pt reports that she had been told in the past that she has a dermoid cyst and was told that it would rupture on its own per patient (?). PAST MEDICAL HISTORY: She reports that she has sickle cell trait. PAST SURGICAL HISTORY: She underwent section in 2011. OB HISTORY: In 2011, she had a of a male infant weighing 6 pounds 9 ounces for nonreassuring heart racing. In 2013, she underwent a of a female infant weighing 6 pounds 3 ounces. In 2016, she had a termination. COMMISSARY ASSISTANT HISTORY: Menarche at age 13. Regular periods. The patient reports that her periods are now 2 days and the first day is very heavy. She reports she has a history of Chlamydia in 2016 and she was with the partner she is with now. She also a history of trichomonas. She reports she had an abnormal Pap in 2011, for which she had colpo and her followups have been normal per patient. ALLERGIES: NO KNOWN DRUG ALLERGIES. MEDICATIONS: The patient is currently on cefoxitin 2 g IV q.6 hours, Colace 100 mg p.o. b.i.d., and doxycycline 100 mg p.o. q.12 hours. She has received Pepcid 20 mg IV stat with this admission. She also was originally given morphine and Toradol for abdominal pain. FAMILY HISTORY: The patient has a sister with ovarian cancer who is currently 41 years old. SOCIAL HISTORY: The patient denies tobacco use. She reports that she drinks alcohol socially and denies any illicit drug use. PHYSICAL EXAMINATION: GENERAL: The patient appears comfortable lying in bed. Patient started to cry when I discussed possible sequelae of STDs. VITAL SIGNS: Afebrile and vital signs stable. HEART: Regular rate and rhythm. LUNGS: Clear to auscultation bilaterally. ABDOMEN: Positive bowel sounds. Soft and nontender. No rebound or guarding. EXTREMITIES: Nontender. No edema. GENITOURINARY: Speculum exam reveals a small amount of white discharge with no odor. On bimanual vaginal exam, there is no cervical motion tenderness. Normal, mobile uterus. No adnexal masses palpated. LABORATORY DATA: White blood cell count was normal on admission, on 11/17/2017, it was 7.4, hemoglobin 11.6, and platelets were 220. AST was mildly elevated at 56. ALT was normal. HIV is nonreactive. She had a urine culture sent and there was no growth. IMAGING STUDIES: On 10/24/2017, Chest x-ray revealed no active disease. Vaginal ultrasound, on 11/16/2017, normal transabdominal pelvic ultrasound Abdominal/pelvic CT scan on 11/17/2017 revealed a stable appearance of a 3.8 x 3.7 cm round mass in the posterior pelvis centered just to the right of the midline that appears composed of fat and soft tissue and contained small calcifications and has well-defined margins, it most likely represents an ovarian dermoid. This was not seen on the recent pelvic ultrasound and it may have been obscured by bowel-gas on that exam. No acute abnormality of the uterus identified. ASSESSMENT AND PLAN: This is a 27-year-old 3, para 2-0-1-2 admitted to [facility] on 11/17/2017 for abdominal pain with a history of Chlamydia and Trichomonas, who reports that her partner is with other people and does not seem willing to go to the clinic and be checked for diseases, although she does report that if we were given scripts, he may be willing to be treated. It is also concerning that her partner doesn't seem to be using protection when he is with other partners. This was discussed with the resident physician, Dr. Guerreor I recommend that the patient see Psychiatry and/ or Social work regarding her relationship with this person. I recommended that she start OTC vitamins as long as she is open to conceiving. Also recommend that she followup with an SAP ADMINISTRATOR regarding her dermoid, which I explained should be removed and discussed risks torsion and/ or rupture. I also recommend that she find out if her sister had cancer gene testing due to the fact she has ovarian cancer and she is so young. I recommended and discussed with the resident physician, Dr. Guerrero that the patient complete a total of 14 days of doxycycline 100 mg q.12 hours to complete her course of possible PID. I also recommend that she receive Flagyl 500 mg p.o. b.i.d. for 7 days to cover any possible bacterial vaginosis or Trichomonas. I left my office number w/ Dr. Guerrero as well as the number for the [facility] in [place]. Barbara Fernández MD MTDD
--- NOTE | 2017-11-18 16:13 | CP.PCM.DIS ---
<Gadiel Guerrero - Last Filed: 11/18/17 18:32> Provider - Provider Date of Admission: 11/17/17 03:04 Attending physician: Liyah Fabian MD Consults: OBGYN: Dr. Fernández Time Spent in preparation of Discharge (in minutes): 45 Diagnosis - Discharge Diagnosis (1) Intractable abdominal pain Status: Chronic Priority: Medium (2) Pelvic inflammatory disease (PID) Status: Acute Priority: High Hospital Course - Lab Results Lab Results: Most Recent Lab Values WBC 7.4 10^3/ul (4.5-11.0) 11/17/17 00:20 RBC 4.90 10^6/uL (3.5-6.1) 11/17/17 00:20 Hgb 11.6 g/dL (12.0-16.0) L 11/17/17 00:20 Hct 35.8 % (36.0-48.0) L 11/17/17 00:20 MCV 73.1 fl (80.0-105.0) L 11/17/17 00:20 MCH 23.7 pg (25.0-35.0) L 11/17/17 00:20 MCHC 32.4 g/dl (31.0-37.0) 11/17/17 00:20 RDW 16.8 % (11.5-14.5) H 11/17/17 00:20 Plt Count 220 10^3/uL (120.0-450.0) 11/17/17 00:20 MPV 9.2 fl (7.0-11.0) 11/17/17 00:20 Gran % 65.9 % (50.0-68.0) 11/17/17 00:20 Lymph % (Auto) 24.1 % (22.0-35.0) 11/17/17 00:20 [place] % (Auto) 8.0 % (1.0-6.0) H 11/17/17 00:20 Eos % (Auto) 1.9 % (1.5-5.0) 11/17/17 00:20 Baso % (Auto) 0.1 % (0.0-3.0) 11/17/17 00:20 Gran # 4.88 (1.4-6.5) 11/17/17 00:20 Lymph # 1.8 (1.2-3.4) 11/17/17 00:20 [place] # 0.6 (0.1-0.6) 11/17/17 00:20 Eos # 0.1 (0.0-0.7) 11/17/17 00:20 Baso # 0.01 K/mm3 (0.0-2.0) 11/17/17 00:20 Sodium 144 mmol/L (132-148) 11/17/17 00:20 Potassium 4.1 mmol/L (3.6-5.0) 11/17/17 00:20 Chloride 107 mmol/L (98-107) 11/17/17 00:20 Carbon Dioxide 27 mmol/L (21-33) 11/17/17 00:20 Anion Gap 14 (10-20) 11/17/17 00:20 BUN 5 mg/dL (7-21) L 11/17/17 00:20 Creatinine 0.6 mg/dl (0.7-1.2) L 11/17/17 00:20 Est GFR ( Amer) > 60 11/17/17 00:20 Est GFR (Non-Af Amer) > 60 11/17/17 00:20 Random Glucose 87 mg/dL (70-110) 11/17/17 00:20 Calcium 9.2 mg/dL (8.4-10.5) 11/17/17 00:20 Total Bilirubin 0.2 mg/dL (0.2-1.3) 11/17/17 00:20 AST 56 U/L (14-36) H 11/17/17 00:20 ALT 52 U/L (7-56) 11/17/17 00:20 Alkaline Phosphatase 52 U/L (38-126) 11/17/17 00:20 Troponin I < 0.01 ng/mL 11/17/17 18:00 Total Protein 7.2 g/dL (5.8-8.3) 11/17/17 00:20 Albumin 4.0 g/dL (3.0-4.8) 11/17/17 00:20 Globulin 3.2 gm/dL 11/17/17 00:20 Albumin/Globulin Ratio 1.3 (1.1-1.8) 11/17/17 00:20 Urine Color Yellow (YELLOW) 11/17/17 00:20 Urine Appearance Clear (CLEAR) 11/17/17 00:20 Urine pH 6.0 (4.7-8.0) 11/17/17 00:20 Ur Specific [place] 1.015 (1.005-1.035) 11/17/17 00:20 Urine Protein Trace mg/dL (<30 mg/dL) H 11/17/17 00:20 Urine Glucose (UA) Negative mg/dL (NEGATIVE) 11/17/17 00:20 Urine Ketones Negative mg/dL (NEGATIVE) 11/17/17 00:20 Urine Blood Trace-intact (NEGATIVE) H 11/17/17 00:20 Urine Nitrate Negative (NEGATIVE) 11/17/17 00:20 Urine Bilirubin Negative (NEGATIVE) 11/17/17 00:20 Urine Urobilinogen 0.2 E.U./dL (<1 E.U./dL) 11/17/17 00:20 Ur Leukocyte Esterase Trace Hannah/uL (NEGATIVE) H 11/17/17 00:20 Urine RBC 0 - 2 /hpf (0-2) 11/17/17 00:20 Urine WBC 2 - 5 /hpf (0-6) 11/17/17 00:20 Ur Epithelial Cells 3 - 4 /hpf (0-5) 11/17/17 00:20 Urine Bacteria Rare (NEG) 11/17/17 00:20 HIV 1&2 Ag/Ab, 4th Gen Nonreactive (Nonreactive) 11/17/17 07:30 - Hospital Course Hospital Course: Patient is a 27 year old female with a past medical history of PID, peptic ulcer disease, recurrent UTI and SC trait who presents with acute onset dysuria and associated left sided abdominal/flank pain when urinating. Patient admitted to having a history of chlamydia in the past and taking Bactrim DS after intercourse as UTI prophylaxis. CT of abdomen and pelvis was done which revealed no evidence of acute process, with findings of a 3.8 cm round, posterior pelvic mass containing fat, soft tissue and calcifications which remained stable in appearance from prior CT taken in 07/17/2017 most likely representing a dermoid cyst. Transabdominal ultrasound was also done which was read as normal ovaries, with a prominent left tube with a small amount of free fluid. While in the ED, vaginal exam with speculum was performed and patient was found to have cervical motion tenderness. Considering patient's clinical history and presentation, she was placed on rocephin and doxycycline to treat for chlamydia and gonorrhea infections. Patient was also examined and evaluated by OBGYN who agreed with discharge plan with doxycycline and also requested flagyl to cover bacterial vaginosis and trichomonas infection. Discussed with patient importance of using condoms when partaking in sexual intercourse as this will help prevent infections; patient stated she has never used condoms. Also discussed with patient importance of having her partner tested and treated as well. Patient was in agreement with plan of discharge, patient was then discharged. Case reviewed and discussed with Dr. Fabian Discharge Exam - Head Exam Head Exam: ATRAUMATIC, NORMAL INSPECTION, NORMOCEPHALIC - Eye Exam Eye Exam: EOMI, Normal appearance Pupil Exam: NORMAL ACCOMODATION - Respiratory Exam Respiratory Exam: Clear to PA & Lateral, NORMAL BREATHING PATTERN, UNREMARKABLE - Cardiovascular Exam Cardiovascular Exam: REGULAR RHYTHM, +S1, +S2 - GI/Abdominal Exam GI & Abdominal Exam: Normal Bowel Sounds, Soft. absent: Distended, Firm, Guarding - Neurological Exam Neurological exam: Alert, CN II-XII Intact, Oriented x3 - Psychiatric Exam Psychiatric exam: Normal Affect, Normal Mood - Skin Skin Exam: Intact, Normal Color, Warm Discharge Plan - Discharge Medications Prescriptions: Doxycycline Hyclate [Doryx] 100 mg PO Q12H 12 Days #24 cap Metronidazole [Flagyl] 500 mg PO Q12 7 Days #14 tablet - Follow Up Plan Condition: FAIR Disposition: HOME/ ROUTINE Instructions: Sexually Transmitted Diseases (GEN), Urinary Tract Infection in Women (DC), Sickle Cell Anemia (DC), Acute Abdominal Pain (DC) Additional Instructions: 1. Please follow up with your PMD in 3-5 days. 2. Please follow up with your OBGYN within 1 week. Will refer you to Dr. Fernández , please call [phone] to set up an appointment. 3. Please Fill and take prescriptions as instructed. 4. Don't hesitate to return to [facility] ED if symptoms worsen or return. Referrals: Liyah Fabian MD [Staff Provider] - <Liyah Fabian - Last Filed: 11/19/17 14:04> Provider - Provider Date of Admission: 11/17/17 03:04 Attending physician: Liyah Fabian MD Hospital Course - Lab Results Lab Results: Most Recent Lab Values WBC 7.4 10^3/ul (4.5-11.0) 11/17/17 00:20 RBC 4.90 10^6/uL (3.5-6.1) 11/17/17 00:20 Hgb 11.6 g/dL (12.0-16.0) L 11/17/17 00:20 Hct 35.8 % (36.0-48.0) L 11/17/17 00:20 MCV 73.1 fl (80.0-105.0) L 11/17/17 00:20 MCH 23.7 pg (25.0-35.0) L 11/17/17 00:20 MCHC 32.4 g/dl (31.0-37.0) 11/17/17 00:20 RDW 16.8 % (11.5-14.5) H 11/17/17 00:20 Plt Count 220 10^3/uL (120.0-450.0) 11/17/17 00:20 MPV 9.2 fl (7.0-11.0) 11/17/17 00:20 Gran % 65.9 % (50.0-68.0) 11/17/17 00:20 Lymph % (Auto) 24.1 % (22.0-35.0) 11/17/17 00:20 [place] % (Auto) 8.0 % (1.0-6.0) H 11/17/17 00:20 Eos % (Auto) 1.9 % (1.5-5.0) 11/17/17 00:20 Baso % (Auto) 0.1 % (0.0-3.0) 11/17/17 00:20 Gran # 4.88 (1.4-6.5) 11/17/17 00:20 Lymph # 1.8 (1.2-3.4) 11/17/17 00:20 [place] # 0.6 (0.1-0.6) 11/17/17 00:20 Eos # 0.1 (0.0-0.7) 11/17/17 00:20 Baso # 0.01 K/mm3 (0.0-2.0) 11/17/17 00:20 Sodium 144 mmol/L (132-148) 11/17/17 00:20 Potassium 4.1 mmol/L (3.6-5.0) 11/17/17 00:20 Chloride 107 mmol/L (98-107) 11/17/17 00:20 Carbon Dioxide 27 mmol/L (21-33) 11/17/17 00:20 Anion Gap 14 (10-20) 11/17/17 00:20 BUN 5 mg/dL (7-21) L 11/17/17 00:20 Creatinine 0.6 mg/dl (0.7-1.2) L 11/17/17 00:20 Est GFR ( Amer) > 60 11/17/17 00:20 Est GFR (Non-Af Amer) > 60 11/17/17 00:20 Random Glucose 87 mg/dL (70-110) 11/17/17 00:20 Calcium 9.2 mg/dL (8.4-10.5) 11/17/17 00:20 Total Bilirubin 0.2 mg/dL (0.2-1.3) 11/17/17 00:20 AST 56 U/L (14-36) H 11/17/17 00:20 ALT 52 U/L (7-56) 11/17/17 00:20 Alkaline Phosphatase 52 U/L (38-126) 11/17/17 00:20 Troponin I < 0.01 ng/mL 11/17/17 18:00 Total Protein 7.2 g/dL (5.8-8.3) 11/17/17 00:20 Albumin 4.0 g/dL (3.0-4.8) 11/17/17 00:20 Globulin 3.2 gm/dL 11/17/17 00:20 Albumin/Globulin Ratio 1.3 (1.1-1.8) 11/17/17 00:20 Urine Color Yellow (YELLOW) 11/17/17 00:20 Urine Appearance Clear (CLEAR) 11/17/17 00:20 Urine pH 6.0 (4.7-8.0) 11/17/17 00:20 Ur Specific [place] 1.015 (1.005-1.035) 11/17/17 00:20 Urine Protein Trace mg/dL (<30 mg/dL) H 11/17/17 00:20 Urine Glucose (UA) Negative mg/dL (NEGATIVE) 11/17/17 00:20 Urine Ketones Negative mg/dL (NEGATIVE) 11/17/17 00:20 Urine Blood Trace-intact (NEGATIVE) H 11/17/17 00:20 Urine Nitrate Negative (NEGATIVE) 11/17/17 00:20 Urine Bilirubin Negative (NEGATIVE) 11/17/17 00:20 Urine Urobilinogen 0.2 E.U./dL (<1 E.U./dL) 11/17/17 00:20 Ur Leukocyte Esterase Trace Hannah/uL (NEGATIVE) H 11/17/17 00:20 Urine RBC 0 - 2 /hpf (0-2) 11/17/17 00:20 Urine WBC 2 - 5 /hpf (0-6) 11/17/17 00:20 Ur Epithelial Cells 3 - 4 /hpf (0-5) 11/17/17 00:20 Urine Bacteria Rare (NEG) 11/17/17 00:20 HIV 1&2 Ag/Ab, 4th Gen Nonreactive (Nonreactive) 11/17/17 07:30 Attending/Attestation - Attestation I have personally seen and examined this patient.: Yes I have fully participated in the care of the patient.: Yes I have reviewed all pertinent clinical information, including history, physical exam and plan: Yes Notes (Text): I have seen and examined the patient at bedside. Agree with the above note with the following additions/ exceptions: Briefly this is 27 year old female with history of PID, PUD, recurrent UTI and sickle cell trait who was admitted for suspected PID. Patient was given Rocephin and zitho in ED and since then was started on cefoxitin and doxy. Patient complained of dyspareunia along with odorous vaginal discharge. Patient had CMT on ED's vaginal exam. OBGYN consult appreciated. Patient will be discharged on doxy and flagyl. Patients partner has multiple sexual partners. Advised patient to have her partner tested for STD 's. Patient also needs to follow up with OBGYN regarding her dermoid cyst for removal. CT scan also revealed stable appearance of previously present dermoid cyst. Upon discharge patient will follow up with PMD of choice. Dr Liyah Fabian
== END 2017-11-18 18:09 | disposition home or self-care (01) ==
LOC: ED 23:20 → ERH 11-17 03:04 → 5RNO 11-17 04:12
PROVIDERS: ADMIT Hospitalist; ATTEND Hospitalist
DX: N73.9 Female pelvic inflammatory disease, unspecified (principal); N89.8 Other specified noninflammatory disorders of vagina; N94.10 Unspecified dyspareunia; D57.3 Sickle-cell trait; Z80.41 Family history of malignant neoplasm of ovary; Z87.11 Personal history of peptic ulcer disease; Z87.440 Personal history of urinary (tract) infections
CPT/HCPCS: 71010; 74176; 76830; 80053; 81001; 84484; 85025; 87086; 87389; 87491; 87591; 93005; 96365; 96366; 96372; 96375; 96376; 99283; G0378; J0694; J0696; J1885; J2270; J2405; J7040